=== PATIENT | male | born 1965 ===

== ENCOUNTER 2018-10-02 10:58 | Inpatient (IN) | payer MEDICARE ==
[2018-10-02 11:08] VITALS: BMI 24.3
--- NOTE | 2018-10-02 11:35 | ED PDOC ---
Lower Extremity Pain/Injury Time Seen by Provider: 10/02/18 11:24 Chief Complaint (Nursing): Lower Extremity Problem/Injury Chief Complaint (Provider): Lower Extremity Problem/Injury History Per: Patient History/Exam Limitations: no limitations Onset/Duration Of Symptoms: Days (x2 months) Current Symptoms Are (Timing): Still Present Pain Scale Rating Of: 10 Additional Complaint(s): 53 year old male presents to the ED sent by Dr. Mariscal for evaluation of left leg pain ongoing the past two months. Patient reports that he has had swelling a nd discomfort radiating from the left hip down, most severe at the hip since onset. He describes it as a throbbing 10/10 pain and notes having difficulty with ambulation secondary to the pain, so he has acquired crutches to use. 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 Denies prolonged immobility, trauma, hx of leg injury, shortness of breath, cough, chest pain, palpitations, fever, and other complaints. PMD: none provided Past Medical History Reviewed: Historical Data, Nursing Documentation, Vital Signs Vital Signs: Last Vital Signs Temp 98.9 F 10/02/18 11:09 Pulse 73 10/02/18 11:09 Resp 20 10/02/18 11:09 BP 129/85 10/02/18 11:09 Pulse Ox 98 10/02/18 11:09 - Medical History PMH: HIV - Surgical History Surgical History: No Surg Hx - Family History Family History: States: Unknown Family Hx - Social History Current smoker - smoking cessation education provided: Yes (1 pack per day) Alcohol: None Drugs: Other (former heroin abuser (injection) ) - Home Medications Home Medications: Ambulatory Orders Medication Instructions Recorded Methadone 110 mg PO DAILY 10/02/18 - Allergies Allergies/Adverse Reactions: Allergies Allergy/AdvReac Type Severity Reaction Status Date / Time No Known Allergies Allergy Verified 10/02/18 11:15 Review of Systems ROS Statement: Except As Marked, All Systems Reviewed And Found Negative Constitutional: Negative for: Fever Cardiovascular: Negative for: Chest Pain, Palpitations Respiratory: Negative for: Cough, Shortness of Breath Musculoskeletal: Positive for: Leg Pain (entire LLE, most notably at hip) Neurological: Negative for: Headache, Dizziness Physical Exam - Reviewed Nursing Documentation Reviewed: Yes Vital Signs Reviewed: Yes - Physical Exam Comments: GENERAL APPEARANCE: Patient is awake, alert, oriented x 3, in mild painful distress. Crutches noted at bedside. SKIN: Warm, dry; (-) cyanosis. NECK: Supple, FROM ENT: Airway patent, (-) stridor. LEFT LOWER EXTREMITY: (+) Diffuse tenderness entire LE, most notably at hip, (+) edema to left lower leg, calf, ankle; (+) Minimal calf tenderness. (-) palpable cord, (-) warmth, (-) erythema. No ROM at hip secondary to pain. Diminished ROM of knee secondary to pain. ABDOMEN AND GI: Soft; (-) tenderness CARDIOVASCULAR: (+) regular rate and rhythm, (+) distal pulse. RESPIRATORY: lungs clear to auscultation bilaterally. Respirations even and non- labored. NEUROLOGIC: (+) distal sensation. - Laboratory Results Result Diagrams: 10/02/18 13:20 10/02/18 13:20 - ECG O2 Sat by Pulse Oximetry: 98 (RA) Pulse Ox Interpretation: Normal Medical Decision Making Medical Decision Making: Time: 1133 Initial Impression: lower extremity pain, r/o DVT Initial Plan: --CMP --Lact acid --CBC with differential --Erythrocyte sedimentation rate --PT / PTT --Viral Load --Lymphocyte subset panel 4 --Toradol 30mg IVP --Blood culture --Left Hip XR --Left lower extremity US duplex 1400 Labs reviewed. CBC unremarkable. No leukocytosis. H&H stable. ESR elevated @ 113. CMP and coag profile WNL. 1425 Patient in U/S. 1505 Date of service: 10/02/2018 PROCEDURE: HISTORY: severe joint pain COMPARISON: None TECHNIQUE: AP pelvis and frog's leg view. FINDINGS: There is marked destruction with severe demineralization of the left femoral neck and mostly the left femoral head-a neoplastic lytic process with pathological fracture here is 1 consideration.-. Another consideration is a left hip joint aggressive infection with destruction and demineralization. There is amorphous demineralized ossific debris here. IMPRESSION: Extensive destruction of the proximal left femur with pathological fracture. A lytic destructive neoplasm versus a destructive left septic arthrosis are favored considerations. Comments: These findings were immediately called in to the ER and directly discussed with the HUGO Quinones on 10/02/2018 at 3:04 p.m. U/S reviewed, radiology report follows Left lower extremity ultrasound. Indication: Rule out DVT Technique: Duplex ultrasound evaluation of the left lower extremity Comparison: None available Findings: There is normal flow, compressibility, and augmentation of the left common femoral, femoral, and popliteal veins. The left posterior tibial veins appear patent and compress normally Impression: No evidence of deep venous thrombosis in the left lower extremity. Case discussed with ED MD Salas in light of XR findings, CT lower extremity ordered for further evaluation of pathology. 1814 Patient sleeping comfortably in no distress. Pending CT report. 1849 CT reviewed, radiology report: IMPRESSION: Large destructive and infiltrative soft tissue mass lesion involving the left femoral head, neck, and possibly acetabular roof, with pathological fracture of the neck, and mild lateral and upward subluxation of the shaft, the mass is seen containing dispersed bone fragments and ossified matrix, highly impressive of malignant pathology, with the possible differential diagnosis includes first metastatic deposit from unknown primary, followed by primary osseous tumor like chondrosarcoma and osteosarcoma, for further histopathological correlation and contrast enhanced MRI study. Sheets of irregular periosteal reaction is seen outlining the anterior and posterior acetabular columns. Consult placed to hospitalist, Dr Ro. Agreeable to admission to med/surg. Scribe Attestation: Documented by Estrellita Marquez, acting as a scribe for Yumiko Quinones PA-C Provider Scribe Attestation: All medical record entries made by the Scribe were at my direction and personally dictated by me. I have reviewed the chart and agree that the record accurately reflects my personal performance of the history, physical exam, medical decision making, and the department course for this patient. I have also personally directed, reviewed, and agree with the discharge instructions and disposition. Disposition - Clinical Impression Clinical Impression: Pathological fracture of hip - Patient ED Disposition Is Patient to be Admitted: Yes Discussed With : Christa Ro Doctor Will See Patient In The: Hospital Counseled Patient/Family Regarding: Studies Performed, Diagnosis - Disposition Disposition Time: 19:40 Condition: STABLE - POA Present On Arrival: None Results - Lab Results Lab Results: 10/02/18 10/02/18 10/02/18 13:30 13:20 13:20 WBC RBC Hgb Hct MCV MCH MCHC RDW Plt Count MPV Neut % (Auto) Lymph % (Auto) Wise % (Auto) Eos % (Auto) Baso % (Auto) Neut # (Auto) Lymph # (Auto) Wise # (Auto) Eos # (Auto) Baso # (Auto) ESR PT 15.3 H INR 1.3 APTT 36.9 Sodium 139 Potassium 4.1 Chloride 102 Carbon Dioxide 31 H Anion Gap 10 BUN 14 Creatinine 0.7 L Est GFR ( Amer) > 60 Est GFR (Non-Af Amer) > 60 Random Glucose 69 L Lactic Acid 0.9 Calcium 8.6 Total Bilirubin 0.4 AST 39 ALT 28 Alkaline Phosphatase 113 Total Protein 7.6 Albumin 3.1 L Globulin 4.5 H Albumin/Globulin Ratio 0.7 L 10/02/18 13:20 WBC 7.1 RBC 3.90 L Hgb 10.3 L Hct 31.9 L MCV 81.9 MCH 26.5 L MCHC 32.4 L RDW 17.3 H Plt Count 346 MPV 8.0 Neut % (Auto) 50.9 Lymph % (Auto) 41.0 H Wise % (Auto) 7.5 Eos % (Auto) 0.2 Baso % (Auto) 0.4 Neut # (Auto) 3.6 Lymph # (Auto) 2.9 Wise # (Auto) 0.5 Eos # (Auto) 0.0 Baso # (Auto) 0.0 ESR 113 H PT INR APTT Sodium Potassium Chloride Carbon Dioxide Anion Gap BUN Creatinine Est GFR ( Amer) Est GFR (Non-Af Amer) Random Glucose Lactic Acid Calcium Total Bilirubin AST ALT Alkaline Phosphatase Total Protein Albumin Globulin Albumin/Globulin Ratio
[2018-10-02 13:49] LABS: BASO % 0.4 % (0.0-2.0); EOS % 0.2 % (0.0-4.0); HEMOGLOBIN 10.3 g/dL (12.0-18.0); LYMPH # 2.9 K/uL (1.0-4.3); MEAN CELL VOLUME 81.9 fl (80.0-94.0); MEAN CORPUSCULAR HEMOGLOBIN 26.5 pg (27.0-31.0); MEAN CORPUSCULAR HGB CONC 32.4 g/dL (33.0-37.0); MONO # 0.5 K/uL (0.0-0.8); MONO % 7.5 % (0.0-10.0); NEUT # 3.6 K/uL (1.8-7.0); NEUT % 50.9 % (50.0-75.0); NRBC % 0.2 % (0.0-0.0); RBC 3.9 Mil/uL (4.40-5.90); RED CELL DISTRIBUTION WIDTH 17.3 % (11.5-14.5); WHITE BLOOD COUNT 7.1 K/uL (4.8-10.8)
[2018-10-02 13:57] LABS: ALB/GLOB RATIO 0.7 (1.0-2.1)
[2018-10-02 14:01] LABS: INR 1.3; PROTHROMBIN TIME 15.3 Seconds (9.8-13.1)
[2018-10-02 14:04] LABS: PARTIAL THROMBOPLASTIN TIME 36.9 Seconds (25.6-37.1)
[2018-10-02 14:07] LABS: ALBUMIN 3.1 g/dL (3.5-5.0); ALT/SGPT 28 U/L (21-72); AST/SGOT 39 U/L (17-59); BLOOD UREA NITROGEN 14 mg/dl (9-20); CALCIUM 8.6 mg/dL (8.4-10.2); GFR NON-AFRICAN AMERICAN > 60
--- NOTE | 2018-10-02 15:09 | RAD ---
Date of service: 10/02/2018 PROCEDURE: HISTORY: severe joint pain COMPARISON: None TECHNIQUE: AP pelvis and frog's leg view. FINDINGS: There is marked destruction with severe demineralization of the left femoral neck and mostly the left femoral head-a neoplastic lytic process with pathological fracture here is 1 consideration.-. Another consideration is a left hip joint aggressive infection with destruction and demineralization. There is amorphous demineralized ossific debris here. IMPRESSION: Extensive destruction of the proximal left femur with pathological fracture. A lytic destructive neoplasm versus a destructive left septic arthrosis are favored considerations. Comments: These findings were immediately called in to the ER and directly discussed with the HUGO Quinones on 10/02/2018 at 3:04 p.m.
--- NOTE | 2018-10-02 15:09 | US ---
Left lower extremity ultrasound. Indication: Rule out DVT Technique: Duplex ultrasound evaluation of the left lower extremity Comparison: None available Findings: There is normal flow, compressibility, and augmentation of the left common femoral, femoral, and popliteal veins. The left posterior tibial veins appear patent and compress normally Impression: No evidence of deep venous thrombosis in the left lower extremity.
--- NOTE | 2018-10-02 20:08 | CP.PCM.HP ---
History of Present Illness - History of Present Illness History of Present Illness: This is 53 y/o male admitted to [facility] for evaluation and treatment of left hip/thigh pain for 3 months. Patient has hx of drug abuse, denies any history of HIV. Patient reports this pain has been progressively getting worse, denies any recollection of any trauma, pain is constant 10/10, throbbing, non-radiating, no alleviating factors, aggravated by walking, movement and standing, associated with swelling. Denies any associated dysuria, vomiting, fever, abdominal pain, diarrhea, constipation, dizziness, chest pain, or SOB. Patient is a poor historian. PMH: Drug abuse (denies any hx of HIV) PSH: Denies Allg: Denies Meds: Methadone 110mg daily (From [facility], # [phone], will confirm the dose in the morning ) FH: Denies any cancers, heart or strokes SH: Smokes cig, 1pack/day, Denies alcohol use, Last use of heroin 1 month ago ROS: As per HPI ER Course: VS: Stable, Afebrile CBC: H/H; 10.3/31.9 ESR: 113 CMP: wnl UA: reviewed U tox: + methadone, + Cannabinoids U/s LLE: No evidence of deep venous thrombosis in the left lower extremity Hip and Pelvic Xray: Proximal Left femur with pathological fracture, lytic destructive CT LLE: Large destructive and infiltrative soft tissue mass lesion involving the left femoral head, neck, and possibly acetabular roof, with pathological fracture Present on Admission - Present on Admission Any Indicators Present on Admission: No Past Patient History - Infectious Disease Hx of Infectious Diseases: None - Past Social History Alcohol: None Drugs: Other (former heroin abuser (injection) ) - CARDIAC Hx Hypertension: No - ENDOCRINE/METABOLIC Hx Diabetes Mellitus Type 2: No - HEMATOLOGICAL/ONCOLOGICAL Hx Human Immunodeficiency Virus (HIV): Yes - PSYCHIATRIC Hx Substance Use: Yes - SURGICAL HISTORY Hx Surgeries: No - ANESTHESIA Hx Anesthesia: No Meds Allergies/Adverse Reactions: Allergies Allergy/AdvReac Type Severity Reaction Status Date / Time No Known Allergies Allergy Verified 10/02/18 11:15 Physical Exam - Constitutional Appears: No Acute Distress - Head Exam Head Exam: NORMAL INSPECTION - Eye Exam Eye Exam: Normal appearance Pupil Exam: NORMAL ACCOMODATION - ENT Exam ENT Exam: Mucous Membranes Moist - Neck Exam Neck exam: Positive for: Normal Inspection - Respiratory Exam Respiratory Exam: Clear to Auscultation Bilateral, NORMAL BREATHING PATTERN - Cardiovascular Exam Cardiovascular Exam: REGULAR RHYTHM, +S1, +S2 - GI/Abdominal Exam GI & Abdominal Exam: Normal Bowel Sounds, Soft Additional comments: abdominal hernia appreciated above the Umbilicus, non-tender, Chronic - Extremities Exam Additional comments: LLE: Diffuse tenderness with edema, most tenderness at hip area, mild swelling, no erythema. No ROM at hip secondary to pain. Diminished ROM of knee secondary to pain. - Back Exam Back exam: NORMAL INSPECTION. absent: CVA tenderness (L), CVA tenderness (R) - Neurological Exam Neurological exam: Alert, CN II-XII Intact, Oriented x3 - Psychiatric Exam Psychiatric exam: Normal Affect - Skin Skin Exam: Normal Color Results - Vital Signs Recent Vital Signs: Last Vital Signs Temp 97.7 F 10/02/18 15:19 Pulse 67 10/02/18 18:54 Resp 18 10/02/18 18:54 BP 110/50 L 10/02/18 18:54 Pulse Ox 98 10/02/18 19:42 - Labs Result Diagrams: 10/02/18 13:20 10/02/18 13:20 Labs: Laboratory Results - last 24 hr 10/02/18 10/02/18 10/02/18 13:20 13:20 13:20 WBC 7.1 RBC 3.90 L Hgb 10.3 L Hct 31.9 L MCV 81.9 MCH 26.5 L MCHC 32.4 L RDW 17.3 H Plt Count 346 MPV 8.0 Neut % (Auto) 50.9 Lymph % (Auto) 41.0 H [place] % (Auto) 7.5 Eos % (Auto) 0.2 Baso % (Auto) 0.4 Neut # (Auto) 3.6 Lymph # (Auto) 2.9 [place] # (Auto) 0.5 Eos # (Auto) 0.0 Baso # (Auto) 0.0 ESR 113 H PT 15.3 H INR 1.3 APTT 36.9 Sodium 139 Potassium 4.1 Chloride 102 Carbon Dioxide 31 H Anion Gap 10 BUN 14 Creatinine 0.7 L Est GFR ( Amer) > 60 Est GFR (Non-Af Amer) > 60 Random Glucose 69 L Lactic Acid Calcium 8.6 Total Bilirubin 0.4 AST 39 ALT 28 Alkaline Phosphatase 113 Total Protein 7.6 Albumin 3.1 L Globulin 4.5 H Albumin/Globulin Ratio 0.7 L 10/02/18 13:30 WBC RBC Hgb Hct MCV MCH MCHC RDW Plt Count MPV Neut % (Auto) Lymph % (Auto) [place] % (Auto) Eos % (Auto) Baso % (Auto) Neut # (Auto) Lymph # (Auto) [place] # (Auto) Eos # (Auto) Baso # (Auto) ESR PT INR APTT Sodium Potassium Chloride Carbon Dioxide Anion Gap BUN Creatinine Est GFR ( Amer) Est GFR (Non-Af Amer) Random Glucose Lactic Acid 0.9 Calcium Total Bilirubin AST ALT Alkaline Phosphatase Total Protein Albumin Globulin Albumin/Globulin Ratio Assessment & Plan - Assessment and Plan (Free Text) Assessment: A/P: 53 y/o male admitted to [facility] for evaluation and treatment of left hip/thigh pain for 3 months. Left hip/thigh pain - Chronic - U/s LLE: No evidence of deep venous thrombosis in the left lower extremity - Hip and Pelvic Xray: Proximal Left femur with pathological fracture, lytic destructive - CT LLE: Large destructive and infiltrative soft tissue mass lesion involving t he left femoral head, neck, and possibly acetabular roof, with pathological fracture - Elevated ESR - Consult ID, Dr. Conti, f/u recommendations - C/w pain management - Follow up Blood/Urine Cx, CPK/CRP/Procal IV drug user/Substance use disorder - U tox: + methadone, + Cannabinoids - On Methadone 110mg daily (From [facility], # [phone], will confirm the dose in the morning ) - Follow up CD4/Viral load to r/o immunocompromised state DVT PPX - SCD for now
[2018-10-02] MEDS ORDERED: Sodium Chloride 0.9% 1,000 ML IV SCH (20:15)
[2018-10-02 21:08] LABS: PHENCYCLIDINE, UR NEGATIVE (NEGATIVE)
[2018-10-02 21:10] LABS: SQUAMOUS EPITHIAL < 1 /hpf (0-5); URINE BACTERIA RARE (<OCC); URINE BILIRUBIN NEGATIVE (NEGATIVE); URINE BLOOD SMALL (NEGATIVE); URINE CLARITY CLOUDY (Clear); URINE COLOR YELLOW (YELLOW); URINE GLUCOSE (UA) NEG (Normal); URINE LEUKOCYTE ESTERASE TRACE Leu/uL (Negative); URINE PROTEIN NEGATIVE (NEGATIVE)
[2018-10-02 21:11] LABS: BARBITURATES, UR NEGATIVE (NEGATIVE); BENZODIAZEPINES, UR NEGATIVE (NEGATIVE); OPIATES, UR NEGATIVE (NEGATIVE)
[2018-10-02] MEDS: Naproxen 500 MG TAB PO SCH (22:21)
[2018-10-02] MEDS ORDERED: Naproxen 500 MG TAB PO ONE (22:22)
[2018-10-03 05:49] LABS: BASO % 0.4 % (0.0-2.0); EOS % 0.6 % (0.0-4.0); HEMOGLOBIN 9.5 g/dL (12.0-18.0); LYMPH % 32.5 % (20.0-40.0); MEAN CELL VOLUME 80.9 fl (80.0-94.0); MEAN CORPUSCULAR HEMOGLOBIN 26.1 pg (27.0-31.0); MEAN CORPUSCULAR HGB CONC 32.3 g/dL (33.0-37.0); MEAN PLATELET VOLUME 8.2 fl (7.2-11.7); MONO # 0.5 K/uL (0.0-0.8); MONO % 8.1 % (0.0-10.0); NEUT # 3.6 K/uL (1.8-7.0); NEUT % 58.4 % (50.0-75.0); RBC 3.63 Mil/uL (4.40-5.90); WHITE BLOOD COUNT 6.1 K/uL (4.8-10.8)
[2018-10-03 05:59] LABS: BLOOD UREA NITROGEN 13 mg/dl (9-20); CALCIUM 8.1 mg/dL (8.4-10.2); GFR NON-AFRICAN AMERICAN > 60
[2018-10-03] MEDS: Naproxen 500 MG TAB PO SCH (09:47)
--- NOTE | 2018-10-03 10:46 | CP.PCM.PN ---
<Ling Blum - Last Filed: 10/03/18 11:33> Subjective - Date & Time of Evaluation Date of Evaluation: 10/03/18 Time of Evaluation: 10:46 - Subjective Subjective: 53 yo male patient, with PMHx of IV drug use, seen and examined for L hip/thigh pain for over 2 months. No acute events overnight. Patient reports pain to his L hip and inner thigh. Denies N/V/F/SOB/CP/chills. Objective - Vital Signs/Intake and Output Vital Signs (last 24 hours): Temp Pulse Resp BP Pulse Ox 97.5 F L 51 L 20 116/74 98 10/03/18 08:00 10/03/18 08:00 10/03/18 08:00 10/03/18 08:00 10/03/18 08:00 - Medications Medications: Current Medications Acetaminophen (Tylenol 325mg Tab) 650 mg PO Q6 PRN PRN Reason: Pain, Mild (1-3) Sodium Chloride (Sodium Chloride 0.9%) 1,000 mls @ 100 mls/hr IV .Q10H [facility] Last Admin: 10/02/18 20:23 Dose: 100 mls/hr Ketorolac Tromethamine (Toradol) 30 mg IVP Q6 PRN PRN Reason: Pain, severe (8-10) Ketorolac Tromethamine (Toradol) 15 mg IVP Q6 PRN PRN Reason: Pain, moderate (4-7) Naproxen (Naproxen) 500 mg PO Q12 [facility] Last Admin: 10/03/18 09:47 Dose: 500 mg - Labs Labs: 10/03/18 05:10 10/03/18 05:10 PT 15.3 Seconds (9.8-13.1) H 10/02/18 13:20 INR 1.3 10/02/18 13:20 APTT 36.9 Seconds (25.6-37.1) 10/02/18 13:20 - Constitutional Appears: No Acute Distress - Head Exam Head Exam: NORMAL INSPECTION - Eye Exam Eye Exam: EOMI, PERRL Pupil Exam: NORMAL ACCOMODATION - ENT Exam ENT Exam: Mucous Membranes Moist - Neck Exam Neck Exam: Normal Inspection - Respiratory Exam Respiratory Exam: Clear to Ausculation Bilateral - GI/Abdominal Exam GI & Abdominal Exam: Soft, Normal Bowel Sounds - Extremities Exam Additional comments: Tenderness upon palpation with mild edema to L hip, no ROM to L hip secondary to guarding. - Neurological Exam Neurological Exam: Alert, Awake - Psychiatric Exam Psychiatric exam: Normal Affect, Normal Mood - Skin Skin Exam: Warm Assessment and Plan - Assessment and Plan (Free Text) Assessment: 53 yo male patient, with PMHx of IV drug use, seen and evaluated for L hip/thigh pain Plan: 1) Left hip/thigh pain - U/s LLE: No evidence of DVT in the LLE - Hip/Pelvis Xray: Proximal L femur with pathological fracture, lytic de structive - CT LLE: Large destructive and infiltrative soft tissue mass lesion involving the left femoral head, neck, and possibly acetabular roof, with pathological fracture - ESR 113, CRP- pending - Urine cx, pending - Blood cx, pending - Consult ID, Dr. Mariscal, reccs appreciated - Consult Ortho, Dr. Rodney, reccs appreciated - C/w pain management 2) IV drug user/Substance use disorder - Urine toxicology: + methadone, + Cannabinoids - Methadone 110mg daily, [employer] contacted ([phone]) on 10/03/18, dose confirmed - HIV-1 Ab Reactive screen- Negative 3) DVT PPX - SCD <Tracey Tim - Last Filed: 10/12/18 10:20> Objective - Vital Signs/Intake and Output Vital Signs (last 24 hours): Temp Pulse Resp BP Pulse Ox 97.8 F 55 L 18 110/68 99 10/11/18 08:17 10/11/18 08:17 10/11/18 08:17 10/11/18 08:17 10/11/18 08:17 - Labs Labs: 10/10/18 05:50 10/10/18 10:59 PT 13.8 Seconds (9.8-13.1) H 10/09/18 09:10 INR 1.2 10/09/18 09:10 APTT 38.3 Seconds (25.6-37.1) H 10/09/18 09:10 Attending/Attestation - Attestation I have personally seen and examined this patient.: Yes I have fully participated in the care of the patient.: Yes I have reviewed all pertinent clinical information, including history, physical exam and plan: Yes Notes (Text): 10/12/18 10:20 Seen, examined, and discussed with resident. Agree with findings and plan as above.
--- NOTE | 2018-10-03 11:27 | CT ---
Date of service: 10/02/2018 PROCEDURE: CT left lower extremity HISTORY: pathology of femoral head/neck on XR COMPARISON: October 02, 2018. TECHNIQUE: 2.5 mm axial acquisition and display. Coronal and sagittal reconstructions. Dose report (mGy-cm): 256.04 Supplemental 3D volume rendering images in multiple planes FINDINGS: Destructive process affecting the proximal left femur including femoral neck and head. Associated soft tissue swelling identified including adductor and quadriceps musculature. In the absence of a known history malignancy (and therefore pathologic fracture) Virtual absence of the normal left femoral head. The adjacent acetabulum is preserved. Most likely etiology would be infectious process. No additional osseous abnormalities identified. IMPRESSION: Destruction of left femoral head with associated soft tissue component affecting knowledge the joint space and surrounding/adjacent musculature. In the absence of a history of malignancy, infectious/inflammatory etiology should be considered. Primary neoplastic process of the proximal left femur should also be considered. Concordant results (preliminary interpretation) provided by [employer]. Procedure Completed: 15:31. Preliminary Report: Dictated and Authenticated: 18:26. Final Interpretation: 11:23. October 03, 2018
--- NOTE | 2018-10-03 11:57 | CP.PCM.CON ---
History of Present Illness - History of Present Illness History of Present Illness: Orthopedic consultation Dr. Rodney 53M complains of severe left hip pain x 2 or 3 months. He says he may have fell, he is not sure. He says a little over a month ago he went to [facility] and said they took xrays and sent him home. He says he was seen about a month ago at [facility] for hip pain and then they took xrays and sent him home saying nothing was broken and he never followed up with any orthopedic doctor. He has been usi ng crutches since that time. [place] admits to IVDA, on methadone. No fever/chills. Denies CP/SOB/dizziness/n/v. ?hx of HIV per chart, patient denies Review of Systems - Review of Systems All systems: reviewed and no additional remarkable complaints except - Musculoskeletal Musculoskeletal: As Per HPI Past Patient History - Infectious Disease Hx of Infectious Diseases: None - Past Medical History & Family History Past Medical History?: Yes Past Family History: Reviewed and not pertinent - Past Social History Alcohol: None Drugs: Other (former heroin abuser (injection) ) - CARDIAC Hx Hypertension: No - PULMONARY Hx Respiratory Disorders: No - NEUROLOGICAL Hx Neurological Disorder: No - HEENT Hx HEENT Problems: No - RENAL Hx Chronic Kidney Disease: No - ENDOCRINE/METABOLIC Hx Diabetes Mellitus Type 2: No - HEMATOLOGICAL/ONCOLOGICAL Hx Human Immunodeficiency Virus (HIV): Yes - INTEGUMENTARY Hx Dermatological Problems: No - MUSCULOSKELETAL/RHEUMATOLOGICAL Hx Musculoskeletal Disorders: No Hx Falls: No - GASTROINTESTINAL Hx Gastrointestinal Disorders: No - GENITOURINARY/GYNECOLOGICAL Hx Genitourinary Disorders: No - PSYCHIATRIC Hx Substance Use: Yes - SURGICAL HISTORY Hx Surgeries: No - ANESTHESIA Hx Anesthesia: No Meds Allergies/Adverse Reactions: Allergies Allergy/AdvReac Type Severity Reaction Status Date / Time No Known Allergies Allergy Verified 10/02/18 11:15 - Medications Medications: Current Medications Acetaminophen (Tylenol 325mg Tab) 650 mg PO Q6 PRN PRN Reason: Pain, Mild (1-3) Ketorolac Tromethamine (Toradol) 30 mg IVP Q6 PRN PRN Reason: Pain, severe (8-10) Ketorolac Tromethamine (Toradol) 15 mg IVP Q6 PRN PRN Reason: Pain, moderate (4-7) Last Admin: 10/03/18 11:50 Dose: 15 mg Methadone HCl (Methadone) 110 mg PO DAILY SHERMAN Physical Exam - Constitutional Appears: Unkempt, Cachectic, Chronically Ill Additional comments: very poor hygiene, malodorous - Head Exam Head Exam: ATRAUMATIC - Neck Exam Neck exam: Positive for: Full Rom, Normal Inspection - Extremities Exam Additional comments: skin scaling of feel and ankles - Expanded Lower Extremities Exam Left Hip exam: internal rotation (left hip stiff, pain with any ROM active or passive), shortening Knee exam: normal inspection Ankle exam: FULL ROM (but 4/5 DF/PF) - Neurological Exam Neurological exam: Alert, Oriented x3 - Psychiatric Exam Psychiatric exam: Normal Affect, Normal Mood - Skin Skin Exam: Dry, Intact, Normal Color, Warm Results - Vital Signs Recent Vital Signs: Last Vital Signs Temp 97.5 F L 10/03/18 08:00 Pulse 51 L 10/03/18 08:00 Resp 20 10/03/18 08:00 BP 116/74 10/03/18 08:00 Pulse Ox 98 10/03/18 08:00 - Labs Result Diagrams: 10/03/18 05:10 10/03/18 05:10 Labs: Laboratory Results - last 24 hr 10/02/18 10/02/18 10/02/18 13:20 13:20 13:20 WBC 7.1 RBC 3.90 L Hgb 10.3 L Hct 31.9 L MCV 81.9 MCH 26.5 L MCHC 32.4 L RDW 17.3 H Plt Count 346 MPV 8.0 Neut % (Auto) 50.9 Lymph % (Auto) 41.0 H [place] % (Auto) 7.5 Eos % (Auto) 0.2 Baso % (Auto) 0.4 Neut # (Auto) 3.6 Lymph # (Auto) 2.9 Wharton # (Auto) 0.5 Eos # (Auto) 0.0 Baso # (Auto) 0.0 ESR 113 H PT 15.3 H INR 1.3 APTT 36.9 Sodium 139 Potassium 4.1 Chloride 102 Carbon Dioxide 31 H Anion Gap 10 BUN 14 Creatinine 0.7 L Est GFR ( Amer) > 60 Est GFR (Non-Af Amer) > 60 Random Glucose 69 L Lactic Acid Calcium 8.6 Total Bilirubin 0.4 AST 39 ALT 28 Alkaline Phosphatase 113 Total Creatine Kinase Total Protein 7.6 Albumin 3.1 L Globulin 4.5 H Albumin/Globulin Ratio 0.7 L Urine Color Urine Clarity Urine pH Ur Specific [place] Urine Protein Urine Glucose (UA) Urine Ketones Urine Blood Urine Nitrate Urine Bilirubin Urine Urobilinogen Ur Leukocyte Esterase Urine RBC (Auto) Urine Microscopic WBC Ur Squamous Epith Cells Urine Bacteria Urine Opiates Screen Urine Methadone Screen Ur Barbiturates Screen Ur Phencyclidine Scrn Ur Amphetamines Screen U Benzodiazepines Scrn U Oth Cocaine Metabols U Cannabinoids Screen HIV-1 Ab Rapid Screen 10/02/18 10/02/18 10/02/18 13:30 20:46 20:46 WBC RBC Hgb Hct MCV MCH MCHC RDW Plt Count MPV Neut % (Auto) Lymph % (Auto) Wharton % (Auto) Eos % (Auto) Baso % (Auto) Neut # (Auto) Lymph # (Auto) [place]arton # (Auto) Eos # (Auto) Baso # (Auto) ESR PT INR APTT Sodium Potassium Chloride Carbon Dioxide Anion Gap BUN Creatinine Est GFR ( Amer) Est GFR (Non-Af Amer) Random Glucose Lactic Acid 0.9 Calcium Total Bilirubin AST ALT Alkaline Phosphatase Total Creatine Kinase Total Protein Albumin Globulin Albumin/Globulin Ratio Urine Color Yellow Urine Clarity Cloudy Urine pH 6.0 Ur Specific [place] 1.017 Urine Protein Negative Urine Glucose (UA) Neg Urine Ketones Negative Urine Blood Small Urine Nitrate Negative Urine Bilirubin Negative Urine Urobilinogen 4.0 Ur Leukocyte Esterase Trace Urine RBC (Auto) 30 H Urine Microscopic WBC 3 Ur Squamous Epith Cells < 1 Urine Bacteria Rare Urine Opiates Screen Negative Urine Methadone Screen Positive H Ur Barbiturates Screen Negative Ur Phencyclidine Scrn Negative Ur Amphetamines Screen Negative U Benzodiazepines Scrn Negative U Oth Cocaine Metabols Negative U Cannabinoids Screen Positive H HIV-1 Ab Rapid Screen 10/03/18 10/03/18 10/03/18 05:10 05:10 07:09 WBC 6.1 RBC 3.63 L Hgb 9.5 L Hct 29.4 L MCV 80.9 MCH 26.1 L MCHC 32.3 L RDW 17.0 H Plt Count 311 MPV 8.2 Neut % (Auto) 58.4 Lymph % (Auto) 32.5 [place]arton % (Auto) 8.1 Eos % (Auto) 0.6 Baso % (Auto) 0.4 Neut # (Auto) 3.6 Lymph # (Auto) 2.0 [place]arton # (Auto) 0.5 Eos # (Auto) 0.0 Baso # (Auto) 0.0 ESR PT INR APTT Sodium 139 Potassium 3.6 Chloride 105 Carbon Dioxide 30 Anion Gap 8 L BUN 13 Creatinine 0.6 L Est GFR ( Amer) > 60 Est GFR (Non-Af Amer) > 60 Random Glucose 80 Lactic Acid Calcium 8.1 L Total Bilirubin AST ALT Alkaline Phosphatase Total Creatine Kinase 207 H Total Protein Albumin Globulin Albumin/Globulin Ratio Urine Color Urine Clarity Urine pH Ur Specific [place] Urine Protein Urine Glucose (UA) Urine Ketones Urine Blood Urine Nitrate Urine Bilirubin Urine Urobilinogen Ur Leukocyte Esterase Urine RBC (Auto) Urine Microscopic WBC Ur Squamous Epith Cells Urine Bacteria Urine Opiates Screen Urine Methadone Screen Ur Barbiturates Screen Ur Phencyclidine Scrn Ur Amphetamines Screen U Benzodiazepines Scrn U Oth Cocaine Metabols U Cannabinoids Screen HIV-1 Ab Rapid Screen Non reactive - Impressions Impression: Patient Name / ID : LAUREN WADE / [id number] Exam Date : 10/02/2018 15:29:36 ( Approved ) Study Comment : Sex / Age : M / 53Y Creator : Iván Rivera MD Dictator : Iván Rivera MD Surveyor Helper Rod : Residential Program Manager : Iván Rivera MD Approver2 : Report Date : 10/03/2018 11:23:52 My Comment : Date of service: 10/02/2018 PROCEDURE: CT left lower extremity HISTORY: pathology of femoral head/neck on XR COMPARISON: October 02, 2018. TECHNIQUE: 2.5 mm axial acquisition and display. Coronal and sagittal reconstructions. Dose report (mGy-cm): 256.04 Supplemental 3D volume rendering images in multiple planes FINDINGS: Destructive process affecting the proximal left femur including femoral neck and head. Associated soft tissue swelling identified including adductor and quadriceps musculature. In the absence of a known history malignancy (and therefore pathologic fracture) Virtual absence of the normal left femoral head. The adjacent acetabulum is preserved. Most likely etiology would be infectious process. No additional osseous abnormalities identified. IMPRESSION: Destruction of left femoral head with associated soft tissue component affecting knowledge the joint space and surrounding/adjacent musculature. In the absence of a history of malignancy, infectious/inflammatory etiology should be considered. Primary neoplastic process of the proximal left femur should also be considered. Concordant results (preliminary interpretation) provided by [employer]. Procedure Completed: 15:31. Preliminary Report: Dictated and Authenticated: 18:26. Final Interpretation: 11:23. October 03, 2018 atient Name / ID : LAUREN WADE / [id number] Exam Date : 08/18/2018 11:31:45 ( Approved ) Study Comment : Sex / Age : M / 53Y Creator : Lianet Frey MD Dictator : Lianet Frey MD Surveyor Helper Rod : Residential Program Manager : Lianet Frey MD Approver2 : Report Date : 08/18/2018 12:39:59 My Comment : PROCEDURE: Left Hip X-ray Radiographs. HISTORY: r/o fx COMPARISON: None. FINDINGS: BONES: The pelvic ring is intact. There is deformity in the left femoral head.. Bone alignment and mineralization are normal. JOINTS: Normal. SOFT TISSUES: Normal. OTHER FINDINGS: None. IMPRESSION: Deformity in the left femoral head could be related to old fracture. No acute displaced fracture or dislocation. Please note occult fractures cannot be excluded on plain radiographs. If there is a persistent clinical concern, an MRI of the hip may be performed for further evaluation. atient Name / ID : LAUREN WADE / [id number] Exam Date : 10/02/2018 12:45:05 ( Approved ) Study Comment : Sex / Age : M / 53Y Creator : Dictator : Kaitlin Feliciano V. Surveyor Helper Rod : Residential Program Manager : Kaitlin Feliciano V. Approver2 : Report Date : My Comment : Date of service: 10/02/2018 PROCEDURE: HISTORY: severe joint pain COMPARISON: None TECHNIQUE: AP pelvis and frog's leg view. FINDINGS: There is marked destruction with severe demineralization of the left femoral neck and mostly the left femoral head-a neoplastic lytic process with pathological fracture here is 1 consideration.-. Another consideration is a left hip joint aggressive infection with destruction and demineralization. There is amorphous demineralized ossific debris here. IMPRESSION: Extensive destruction of the proximal left femur with pathological fracture. A lytic destructive neoplasm versus a destructive left septic arthrosis are favored considerations. Comments: These findings were immediately called in to the ER and directly discussed with the HUGO Quinones on 10/02/2018 at 3:04 p.m. Assessment & Plan (1) Pathological fracture of hip Assessment and Plan: Xrays from 08/18/2018 at [facility] demonstrate what is possible a chronic femoral neck fracture at that time. Images are of poor quality, so can not say that it is chronic or acute with certainty, and underlying AVN of femoral head as initial presentation or as sequela of possible fracture also consideration can not exclude infection or tumor either at this time ESR 113, CRP ordered case d/w Dr. Rodney bone scan MRI with contrast cxr/ekg vit D labs pending PT elevated, will recheck patient anemic, will defer to medical team for work up will follow up imaging, if patient surgical candidate will schedule for Sunday 10/07 Status: Acute
--- NOTE | 2018-10-03 12:55 | CARD ---
APPROVED REPORT Date of service: 10/03/2018 EKG Measurement Heart [id number] <Conclusion> Sinus bradycardia Otherwise normal ECG
--- NOTE | 2018-10-03 14:04 | RAD ---
Date of service: 10/03/2018 PROCEDURE: CHEST RADIOGRAPH, 1 VIEW HISTORY: pre op COMPARISON: None available. FINDINGS: LUNGS: Clear. PLEURA: No pneumothorax or pleural fluid seen. CARDIOVASCULAR: Normal. OSSEOUS STRUCTURES: No significant abnormalities. VISUALIZED UPPER ABDOMEN: Normal. OTHER FINDINGS: None. IMPRESSION: No active disease.
[2018-10-03] MEDS ORDERED: Gadodiamide 287 MG/ML VIAL (15ML) IV ONE (18:12)
[2018-10-03 19:04] LABS: % CD4 (T HELPER CELL) 35 Percent (30-61); % CD8 (SUPPRESSOR T CELL) 57 Percent (12-42); ABSOLUTE CD4 CELLS 1086 Cells/mcL (490-1740); ABSOLUTE CD8 CELLS 1774 Cells/mcL (180-1170); ABSOLUTE LYMPHOCYTES 3139 Cells/mcL (850-3900); HELPER/SUPPRESSOR RATIO 0.61 Ratio (0.86-5.00)
--- NOTE | 2018-10-03 20:19 | CP.PCM.PN ---
Subjective - Date & Time of Evaluation Date of Evaluation: 10/03/18 Time of Evaluation: 20:15 - Subjective Subjective: I D CONSULT FULL CONSULT DICTATED PATIENT EXAMINED ,EMR REVIEWED CULTURES PENDING HAVE STATRED VANCOMYCIN & MAXIPEME Objective - Vital Signs/Intake and Output Vital Signs (last 24 hours): Temp Pulse Resp BP Pulse Ox 97.7 F 50 L 18 132/74 99 10/03/18 19:20 10/03/18 19:20 10/03/18 19:20 10/03/18 19:20 10/03/18 19:20 Intake and Output: 10/03/18 10/04/18 18:59 06:59 Intake Total 1400 Balance 1400 - Medications Medications: Current Medications Acetaminophen (Tylenol 325mg Tab) 650 mg PO Q6 PRN PRN Reason: Pain, Mild (1-3) Vancomycin HCl 1 gm/ Sodium (Chloride) 250 mls @ 166.667 mls/hr IVPB Q12 SHERMAN; Protocol Cefepime HCl 1 gm/ Sodium (Chloride) 100 mls @ 100 mls/hr IVPB Q12 SHERMAN; Protocol Ketorolac Tromethamine (Toradol) 30 mg IVP Q6 PRN PRN Reason: Pain, severe (8-10) Ketorolac Tromethamine (Toradol) 15 mg IVP Q6 PRN PRN Reason: Pain, moderate (4-7) Last Admin: 10/03/18 17:41 Dose: 15 mg Methadone HCl (Methadone) 110 mg PO DAILY SHERMAN - Labs Labs: 10/03/18 05:10 10/03/18 05:10 PT 15.3 Seconds (9.8-13.1) H 10/02/18 13:20 INR 1.3 10/02/18 13:20 APTT 36.9 Seconds (25.6-37.1) 10/02/18 13:20
[2018-10-03] MEDS: Cefepime 1 GM in Sodium Chloride 0.9% 100 ML IVPB SCH (23:00)
--- NOTE | 2018-10-04 02:45 | CON ---
DATE: 10/03/2018 HISTORY OF PRESENT ILLNESS: The patient is a 53-year-old male IV drug abuser who was in the process of being placed on methadone maintenance over the past few weeks and is presently on 110 mg of methadone once a day. [facility] seeing the patients when one of the counselors came to me and asked me if I would just check this gentleman .. He came in on crutches and barely able to move. I asked him to stand up without crutches, which he obviously could not do and noted that his left extremity was swollen from the hip distally to ankle and was tender in multiple areas to the touch. He said that this had begun at least 3 weeks ago and had been to [facility] ED. .On both occasions he was told that he was able to go home(he lives in [facility]) Unsure if any referrals werea dvised At this time I called the emergency room and spoke to ER Physicianand advised I would sending him to the hospital for evaluation. He is a 53-year-old male and it was also noted that he is not HIV positive and has normal CD4 count. His history is that the pain was progressively getting worse. On multiple times of questioning, he said he does not remember any trauma. He states the pain is constant and is 10/10. Nothing makes it better. Again, he is unable to walk. He has no other problems related in terms of his feet. He denies any history of fever or chills along with this. Of note, he gave me multiple histories regarding his leg. difficulty walking for a less than a month, so it seems more likely that the story that he gave today in regards to few months is the right one(>6 weeks) but on finding the x-ray of his left hip and the CT scan, there is significant destruction of the left femoral head with associate soft tissue component affecting the joint space and surrounding adjacent musculature. In the absence of history of malignancy, infectious, inflammatory, etiology should be considered. Primary neoplastic process of the proximal left femur also should be considered. The patient was sent MRI of the hip tonight. His chest x-ray is within normal limits. LABORATORY DATA: HIV rapid screen is nonreactive. His creatinine is 0.6. GFR is greater than 60. Creatinine kinase is 207. C-reactive protein is 45.1. His procalcitonin level was less than 0.05. Alkaline phosphatase is surprisingly 113. AST is 39. ALT is 28. WBC count is 7.1, hemoglobin is 10.3, polys 50, lymphs 41 and he has a sed rate of 113. As stated before his CD4 cell count is 1086 and his CD4 percentage is 35%. Urine has some 30 wbc's in it, cultures are all pending. The patient is alert, cooperative and oriented pretty much to time and place. PHYSICAL EXAMINATION: GENERAL: The patient is in pain. HEENT: Within normal limits. He is basically essentially unkempt. Head normocephalic and atraumatic. Also, the patient has wasting noted of the face, maxillary and scientology areas. He says he has not been eating quite well. He is quite cachectic. LUNGS: Clear and it goes along with a normal chest x-ray. HEART: Regular sinus rhythm. ABDOMEN: Soft. Positive bowel sounds. MUSCULOSKELETAL: He has diffuse tenderness and edema of the left hip. Mild swelling. There is some erythema on the calf. He does have pain. He has no ability to stand up without crutches because of the pain. ASSESSMENT AND PLAN: At this point in time, we will be starting IV antibiotics just on the possibility that this is an infectious or inflammatory process. Agree with the previous reviews including the CT scan results that this may be a primary neoplastic process, but we will have to let the process of testing to make diagnosis The orthopedist is to see the patient. The orthopedist will be Dr. Rodney and we wilshould reconsider an oncology consult. Have started vancomycin 1 gm [id number] &maxipeme 1 gm ivpb q12h Vikas Mariscal MD COTY
[2018-10-04 05:27] LABS: HEMOGLOBIN 10.5 g/dL (12.0-18.0); MEAN CELL VOLUME 80.4 fl (80.0-94.0); MEAN CORPUSCULAR HEMOGLOBIN 25.9 pg (27.0-31.0); MEAN CORPUSCULAR HGB CONC 32.1 g/dL (33.0-37.0); RBC 4.07 Mil/uL (4.40-5.90); RED CELL DISTRIBUTION WIDTH 17.2 % (11.5-14.5); WHITE BLOOD COUNT 5.9 K/uL (4.8-10.8)
[2018-10-04 05:30] LABS: INR 1.2; PROTHROMBIN TIME 13.9 Seconds (9.8-13.1)
[2018-10-04 05:33] LABS: PARTIAL THROMBOPLASTIN TIME 36.7 Seconds (25.6-37.1)
[2018-10-04 05:40] LABS: ALB/GLOB RATIO 0.7 (1.0-2.1); ALBUMIN 2.8 g/dL (3.5-5.0); ALT/SGPT 22 U/L (21-72); AST/SGOT 27 U/L (17-59); BLOOD UREA NITROGEN 11 mg/dl (9-20); CALCIUM 8.3 mg/dL (8.4-10.2); GFR NON-AFRICAN AMERICAN > 60
[2018-10-04] MEDS: Cefepime 1 GM in Sodium Chloride 0.9% 100 ML IVPB SCH ×2 (08:57→21:30)
[2018-10-04] MEDS ORDERED: Gadodiamide 287 MG/ML VIAL (15ML) IV ONE (09:21)
--- NOTE | 2018-10-04 09:48 | CP.PCM.PN ---
<KulwantLing - Last Filed: 10/04/18 10:15> Subjective - Date & Time of Evaluation Date of Evaluation: 10/04/18 Time of Evaluation: 09:41 - Subjective Subjective: 53 yo male patient, with PMHx of IV drug use, seen and examined for L hip pain. No acute events overnight, afebrile. Patient reports significant pain to L hip with no relief this morning. Denies N/V/F/SOB/CP/chills. Objective - Vital Signs/Intake and Output Vital Signs (last 24 hours): Temp Pulse Resp BP Pulse Ox 98.3 F 69 18 127/71 96 10/04/18 08:10 10/04/18 08:10 10/04/18 08:10 10/04/18 08:10 10/04/18 08:10 Intake and Output: 10/04/18 10/04/18 06:59 18:59 Intake Total 1400 Balance 1400 - Medications Medications: Current Medications Acetaminophen (Tylenol 325mg Tab) 650 mg PO Q6 PRN PRN Reason: Pain, Mild (1-3) Calcium/Vitamin D (Oyster Shell Calcium/Vitamin D 500 Mg-200 Iu) 1 tab PO DAILY SHERMAN Cholecalciferol (Vitamin D) 2,000 intlu PO DAILY SHERMAN Vancomycin HCl 1 gm/ Sodium (Chloride) 250 mls @ 166.667 mls/hr IVPB Q12 SHERMAN; Protocol Last Admin: 10/04/18 08:50 Dose: 166.667 mls/hr Cefepime HCl 1 gm/ Sodium (Chloride) 100 mls @ 100 mls/hr IVPB Q12 SHERMAN; Protoco l Last Admin: 10/04/18 08:57 Dose: 100 mls/hr Ketorolac Tromethamine (Toradol) 30 mg IVP Q6 PRN PRN Reason: Pain, severe (8-10) Last Admin: 10/04/18 04:38 Dose: 30 mg Ketorolac Tromethamine (Toradol) 15 mg IVP Q6 PRN PRN Reason: Pain, moderate (4-7) Last Admin: 10/04/18 09:09 Dose: 15 mg Methadone HCl (Methadone) 110 mg PO DAILY SHERMAN Last Admin: 10/04/18 08:44 Dose: 110 mg - Labs Labs: 10/04/18 04:20 10/04/18 04:20 PT 13.9 Seconds (9.8-13.1) H 10/04/18 04:20 INR 1.2 10/04/18 04:20 APTT 36.7 Seconds (25.6-37.1) 10/04/18 04:20 - Constitutional Appears: No Acute Distress, Unkempt - Head Exam Head Exam: NORMAL INSPECTION - Eye Exam Eye Exam: Normal appearance Pupil Exam: NORMAL ACCOMODATION - ENT Exam ENT Exam: Mucous Membranes Moist - Neck Exam Neck Exam: Normal Inspection - Respiratory Exam Respiratory Exam: Clear to Ausculation Bilateral, NORMAL BREATHING PATTERN - GI/Abdominal Exam GI & Abdominal Exam: Soft, Normal Bowel Sounds - Back Exam Back Exam: NORMAL INSPECTION - Neurological Exam Neurological Exam: Alert, Awake, Oriented x3 - Psychiatric Exam Psychiatric exam: Normal Affect, Normal Mood - Skin Skin Exam: Warm Assessment and Plan - Assessment and Plan (Free Text) Assessment: 53 yo male patient, with PMHx of IV drug use, seen and evaluated for L hip/thigh pain Plan: 1) Left hip/thigh pain - U/s LLE: No evidence of DVT in the LLE - Hip/Pelvis Xray: Proximal L femur with pathological fracture, lytic destructive - CT LLE: Large destructive and infiltrative soft tissue mass lesion involving the left femoral head, neck, and possibly acetabular roof, with pathological fracture - ESR 113, CRP 45.1 - Urine cx, no growth, final - Blood cx, no growth after 24 hrs - Consult ID, per Dr. Mariscal consider primary neoplastic process of proximal L femur - C/w Vanco 1gm IVQ12 - C/w maxipeme 1gm IVQ12 - Consult Ortho, Dr. Rodney. Per Ortho, will follow up imaging, if patient surgical candidate will schedule for Sunday 10/07 - F/u MRI - F/u bone scan - C/w pain management 2) IV drug user/Substance use disorder - Urine toxicology: + methadone, + Cannabinoids - Methadone 110mg daily, [employer] contacted ([phone]) on 10/03/18, dose confirmed - HIV-1 Ab Reactive screen- Negative 3) DVT PPX - SCD <Tracey Tim - Last Filed: 10/12/18 10:18> Objective - Vital Signs/Intake and Output Vital Signs (last 24 hours): Temp Pulse Resp BP Pulse Ox 97.8 F 55 L 18 110/68 99 10/11/18 08:17 10/11/18 08:17 10/11/18 08:17 10/11/18 08:17 10/11/18 08:17 - Labs Labs: 10/10/18 05:50 10/10/18 10:59 PT 13.8 Seconds (9.8-13.1) H 10/09/18 09:10 INR 1.2 10/09/18 09:10 APTT 38.3 Seconds (25.6-37.1) H 10/09/18 09:10 Attending/Attestation - Attestation I have personally seen and examined this patient.: Yes I have fully participated in the care of the patient.: Yes I have reviewed all pertinent clinical information, including history, physical exam and plan: Yes Notes (Text): 10/12/18 10:18 Seen, examined, and discussed with resident. Agree with findings and plan as above.
[2018-10-04] MEDS: Calcium-Vit D 500 mg-200 Units Tab UD PO SCH (10:47)
[2018-10-04] MEDS: Cholecalciferol 1,000 INTLU TAB PO SCH (10:53)
--- NOTE | 2018-10-04 11:58 | CP.PCM.PN ---
Subjective - Date & Time of Evaluation Date of Evaluation: 10/04/18 Time of Evaluation: 11:52 - Subjective Subjective: Patient complaining of hip pain. Did not tolerate the MRI. Advised patient of the importance of the MRI and the bone scan in determining plan of treatment. Patient agrees to try again for MRI. No new complaints Objective - Vital Signs/Intake and Output Vital Signs (last 24 hours): Temp Pulse Resp BP Pulse Ox 98.3 F 69 18 127/71 96 10/04/18 08:10 10/04/18 08:10 10/04/18 08:10 10/04/18 08:10 10/04/18 08:10 Intake and Output: 10/04/18 10/04/18 06:59 18:59 Intake Total 1400 Balance 1400 - Medications Medications: Current Medications Acetaminophen (Tylenol 325mg Tab) 650 mg PO Q6 PRN PRN Reason: Pain, Mild (1-3) Calcium/Vitamin D (Oyster Shell Calcium/Vitamin D 500 Mg-200 Iu) 1 tab PO DAILY [facility] Last Admin: 10/04/18 10:47 Dose: 1 tab Cholecalciferol (Vitamin D) 2,000 intlu PO DAILY [facility]MAN Last Admin: 10/04/18 10:53 Dose: 2,000 intlu Vancomycin HCl 1 gm/ Sodium (Chloride) 250 mls @ 166.667 mls/hr IVPB Q12 [facility]MAN; Protocol Last Admin: 10/04/18 08:50 Dose: 166.667 mls/hr Cefepime HCl 1 gm/ Sodium (Chloride) 100 mls @ 100 mls/hr IVPB Q12 SHERMAN; Pr otocol Last Admin: 10/04/18 08:57 Dose: 100 mls/hr Ketorolac Tromethamine (Toradol) 30 mg IVP Q6 PRN PRN Reason: Pain, severe (8-10) Last Admin: 10/04/18 04:38 Dose: 30 mg Ketorolac Tromethamine (Toradol) 15 mg IVP Q6 PRN PRN Reason: Pain, moderate (4-7) Last Admin: 10/04/18 09:09 Dose: 15 mg Methadone HCl (Methadone) 110 mg PO DAILY SHERMAN Last Admin: 10/04/18 08:44 Dose: 110 mg - Labs Labs: 10/04/18 04:20 10/04/18 04:20 PT 13.9 Seconds (9.8-13.1) H 10/04/18 04:20 INR 1.2 10/04/18 04:20 APTT 36.7 Seconds (25.6-37.1) 10/04/18 04:20 - Constitutional Appears: In Acute Distress - Head Exam Head Exam: ATRAUMATIC - Neck Exam Neck Exam: Full ROM, Normal Inspection - Respiratory Exam Respiratory Exam: NORMAL BREATHING PATTERN - Cardiovascular Exam Additional comments: +DP/PT - Extremities Exam Additional comments: pain with any ROM left hip calves soft NT neg homans flaking skin, poor hygiene - Neurological Exam Neurological Exam: Alert, Awake, Oriented x3 - Psychiatric Exam Psychiatric exam: Normal Affect, Normal Mood - Skin Skin Exam: Dry, Intact, Normal Color, Warm Assessment and Plan (1) Pathological fracture of hip Assessment & Plan: Bone scan and MRI still pending HIV neg vit D very low Xrays from 08/18/2018 at [facility] demonstrate what is possible a chronic femoral neck fracture at that time. Images are of poor quality, so can not say that it is chronic or acute with certainty, and underlying AVN of femoral head as initial presentation or as sequela of possible fracture also consideration can not exclude infection or tumor either at this time ESR 113, CRP also elevated case d/w Dr. Rodney, agrees with above will follow up imaging, if patient surgical candidate will schedule for Sunday 10/07 Status: Acute (2) Vitamin D deficiency Assessment & Plan: supp Status: Acute
--- NOTE | 2018-10-04 20:16 | CP.PCM.PN ---
Subjective - Date & Time of Evaluation Date of Evaluation: 10/04/18 Time of Evaluation: 20:12 - Subjective Subjective: I D NOTE UNABLE TO TO TOLERATE MRI YESTERDAY WILL REATTEMPT HE HAS DISCUSSED c RESIDENT THE IMPORTANCE FOR HIS RX FOR PRESENT CONTINUE IV ANTIBIOTICS Objective - Vital Signs/Intake and Output Vital Signs (last 24 hours): Temp Pulse Resp BP Pulse Ox 97.8 F 80 18 123/69 98 10/04/18 19:03 10/04/18 19:03 10/04/18 19:03 10/04/18 19:03 10/04/18 19:03 - Medications Medications: Current Medications Acetaminophen (Tylenol 325mg Tab) 650 mg PO Q6 PRN PRN Reason: Pain, Mild (1-3) Calcium/Vitamin D (Oyster Shell Calcium/Vitamin D 500 Mg-200 Iu) 1 tab PO DAILY [facility]ERMAN Last Admin: 10/04/18 10:47 Dose: 1 tab Cholecalciferol (Vitamin D) 2,000 intlu PO DAILY [facility]MAN Last Admin: 10/04/18 10:53 Dose: 2,000 intlu Vancomycin HCl 1 gm/ Sodium (Chloride) 250 mls @ 166.667 mls/hr IVPB Q12 [facility]MAN; Protocol Last Admin: 10/04/18 08:50 Dose: 166.667 mls/hr Cefepime HCl 1 gm/ Sodium (Chloride) 100 mls @ 100 mls/hr IVPB Q12 [facility]ERMAN; Protocol Last Admin: 10/04/18 08:57 Dose: 100 mls/hr Ketorolac Tromethamine (Toradol) 30 mg IVP Q6 PRN PRN Reason: Pain, severe (8-10) Last Admin: 10/04/18 04:38 Dose: 30 mg Ketorolac Tromethamine (Toradol) 15 mg IVP Q6 PRN PRN Reason: Pain, moderate (4-7) Last Admin: 10/04/18 09:09 Dose: 15 mg Methadone HCl (Methadone) 110 mg PO DAILY SHERMAN Last Admin: 10/04/18 08:44 Dose: 110 mg - Labs Labs: 10/04/18 04:20 10/04/18 04:20 PT 13.9 Seconds (9.8-13.1) H 10/04/18 04:20 INR 1.2 10/04/18 04:20 APTT 36.7 Seconds (25.6-37.1) 10/04/18 04:20
[2018-10-05] MEDS: Cholecalciferol 1,000 INTLU TAB PO SCH (09:26)
[2018-10-05] MEDS: Calcium-Vit D 500 mg-200 Units Tab UD PO SCH (09:26)
--- NOTE | 2018-10-05 09:26 | CP.PCM.PN ---
<Arabella Llanes - Last Filed: 10/05/18 10:11> Subjective - Date & Time of Evaluation Date of Evaluation: 10/05/18 Time of Evaluation: 09:00 - Subjective Subjective: Pt seen and examined this morning. Found sleeping. Complained of hip pain on arousal. Otherwise endorses no other complaints Objective - Vital Signs/Intake and Output Vital Signs (last 24 hours): Temp Pulse Resp BP Pulse Ox 97.9 F 53 L 18 115/64 98 10/05/18 08:23 10/05/18 08:23 10/05/18 08:23 10/05/18 08:23 10/05/18 08:23 Intake and Output: 10/05/18 10/05/18 06:59 18:59 Intake Total 600 Output Total 1000 Balance -400 - Medications Medications: Current Medications Acetaminophen (Tylenol 325mg Tab) 650 mg PO Q6 PRN PRN Reason: Pain, Mild (1-3) Calcium/Vitamin D (Oyster Shell Calcium/Vitamin D 500 Mg-200 Iu) 1 tab PO DAILY SHERMAN Last Admin: 10/04/18 10:47 Dose: 1 tab Cholecalciferol (Vitamin D) 2,000 intlu PO DAILY SHERMAN Last Admin: 10/04/18 10:53 Dose: 2,000 intlu Vancomycin HCl 1 gm/ Sodium (Chloride) 250 mls @ 166.667 mls/hr IVPB Q12 [facility]ERMAN; Protocol Last Admin: 10/04/18 22:30 Dose: 166.667 mls/hr Cefepime HCl 1 gm/ Sodium (Chloride) 100 mls @ 100 mls/hr IVPB Q12 SHERMAN; Protocol Last Admin: 10/04/18 21:30 Dose: 100 mls/hr Ketorolac Tromethamine (Toradol) 30 mg IVP Q6 PRN PRN Reason: Pain, severe (8-10) Last Admin: 10/05/18 00:59 Dose: 30 mg Ketorolac Tromethamine (Toradol) 15 mg IVP Q6 PRN PRN Reason: Pain, moderate (4-7) Last Admin: 10/04/18 09:09 Dose: 15 mg Methadone HCl (Methadone) 110 mg PO DAILY SHERMAN Last Admin: 10/04/18 08:44 Dose: 110 mg - Labs Labs: 10/04/18 04:20 10/04/18 04:20 PT 13.9 Seconds (9.8-13.1) H 10/04/18 04:20 INR 1.2 10/04/18 04:20 APTT 36.7 Seconds (25.6-37.1) 10/04/18 04:20 - Constitutional Appears: No Acute Distress - Head Exam Head Exam: NORMAL INSPECTION - Eye Exam Eye Exam: Normal appearance - ENT Exam ENT Exam: Mucous Membranes Moist - Respiratory Exam Respiratory Exam: Clear to Ausculation Bilateral - Cardiovascular Exam Cardiovascular Exam: REGULAR RHYTHM, +S1, +S2 - GI/Abdominal Exam GI & Abdominal Exam: Soft, Normal Bowel Sounds. absent: Tenderness - Extremities Exam Extremities Exam: absent: Calf Tenderness, Full ROM (ROM of left extremity limit ed to pain, no redness or swelling of left hip joint), Pedal Edema - Neurological Exam Neurological Exam: Alert, Oriented x3 - Psychiatric Exam Psychiatric exam: Normal Affect - Skin Skin Exam: Normal Color Assessment and Plan - Assessment and Plan (Free Text) Assessment: Plan: Assessment: 53 yo male patient, with PMHx of IV drug use, seen and evaluated for L hip/thigh pain. Plan for MRI of left hip today. Plan for OR Sunday. Hold Lovenox and diet on Sunday night. 1) Left hip/thigh pain - U/s LLE: No evidence of DVT in the LLE - Hip/Pelvis Xray: Proximal L femur with pathological fracture, lytic destructive - CT LLE: Large destructive and infiltrative soft tissue mass lesion involving the left femoral head, neck, and possibly acetabular roof, with pathological fracture - ESR 113, CRP 45.1 - Urine cx, no growth, final - Blood cx, no growth after 24 hrs - Consult ID, per Dr. Mariscal consider primary neoplastic process of proximal L femur - C/w Vanco 1gm IVQ12 - C/w maxipeme 1gm IVQ12 - Consult Ortho, Dr. Rodney. Per Ortho, will follow up imaging, if patient surgical candidate will schedule for Sunday 10/07 - F/u MRI - F/u bone scan - C/w pain management 2) IV drug user/Substance use disorder - Urine toxicology: + methadone, + Cannabinoids - Methadone 110mg daily, [facility] contacted ([phone]) on 10/03/18, dose confirmed - HIV-1 Ab Reactive screen- Negative 3) DVT PPX - Lovenox SC daily - SCD <Fallon Farris - Last Filed: 10/05/18 13:57> Objective - Vital Signs/Intake and Output Vital Signs (last 24 hours): Temp Pulse Resp BP Pulse Ox 98.2 F 60 18 142/91 H 98 10/05/18 13:42 10/05/18 13:42 10/05/18 13:42 10/05/18 13:42 10/05/18 13:42 Intake and Output: 10/05/18 10/05/18 06:59 18:59 Intake Total 600 Output Total 1000 Balance -400 - Medications Medications: Current Medications Acetaminophen (Tylenol 325mg Tab) 650 mg PO Q6 PRN PRN Reason: Pain, Mild (1-3) Calcium/Vitamin D (Oyster Shell Calcium/Vitamin D 500 Mg-200 Iu) 1 tab PO DAILY SHERMAN Last Admin: 10/05/18 09:26 Dose: 1 tab Cholecalciferol (Vitamin D) 2,000 intlu PO DAILY SHERMAN Last Admin: 10/05/18 09:26 Dose: 2,000 intlu Enoxaparin Sodium (Lovenox) 40 mg SC DAILY SHERMAN; Protocol Stop: 10/06/18 23:55 Last Admin: 10/05/18 13:27 Dose: 40 mg Vancomycin HCl 1 gm/ Sodium (Chloride) 250 mls @ 166.667 mls/hr IVPB Q12 SHERMAN; Protocol Last Admin: 10/05/18 09:33 Dose: 166.667 mls/hr Cefepime HCl 1 gm/ Sodium (Chloride) 100 mls @ 100 mls/hr IVPB Q12 SHERMAN; Protocol Last Admin: 10/05/18 11:13 Dose: 100 mls/hr Iron Sucrose 100 mg/ Sodium (Chloride) 105 mls @ 105 mls/hr IVPB ONCE ONE Stop: 10/05/18 14:54 Ketorolac Tromethamine (Toradol) 30 mg IVP Q6 PRN PRN Reason: Pain, severe (8-10) Last Admin: 10/05/18 00:59 Dose: 30 mg Ketorolac Tromethamine (Toradol) 15 mg IVP Q6 PRN PRN Reason: Pain, moderate (4-7) Last Admin: 10/05/18 11:16 Dose: 15 mg Lorazepam (Ativan) 1 mg IVP ONCE PRN PRN Reason: Agitation prior to MRI Methadone HCl (Methadone) 110 mg PO DAILY SHERMAN Last Admin: 10/05/18 10:24 Dose: 110 mg - Labs Labs: 10/04/18 04:20 10/04/18 04:20 PT 13.9 Seconds (9.8-13.1) H 10/04/18 04:20 INR 1.2 10/04/18 04:20 APTT 36.7 Seconds (25.6-37.1) 10/04/18 04:20 Attending/Attestation - Attestation I have personally seen and examined this patient.: Yes I have fully participated in the care of the patient.: Yes I have reviewed all pertinent clinical information, including history, physical exam and plan: Yes
[2018-10-05] MEDS: Cefepime 1 GM in Sodium Chloride 0.9% 100 ML IVPB SCH ×2 (11:13→21:19)
[2018-10-05] MEDS: Enoxaparin 40 mg Syringe SC SCH (13:27)
[2018-10-05] MEDS ORDERED: Gadodiamide 287 MG/ML VIAL (15ML) IV ONE (14:00)
--- NOTE | 2018-10-05 17:40 | CP.PCM.PN ---
Subjective - Date & Time of Evaluation Date of Evaluation: 10/05/18 Time of Evaluation: 17:35 - Subjective Subjective: I D NOTE CULTURES ARE NEGATIVE AWAITING BONE SCAN ONCOLOGY TO SEE Objective - Vital Signs/Intake and Output Vital Signs (last 24 hours): Temp Pulse Resp BP Pulse Ox 97.6 F 80 20 130/78 95 10/05/18 16:16 10/05/18 16:16 10/05/18 16:16 10/05/18 16:16 10/05/18 16:16 Intake and Output: 10/05/18 10/05/18 06:59 18:59 Intake Total 600 Output Total 1000 Balance -400 - Medications Medications: Current Medications Acetaminophen (Tylenol 325mg Tab) 650 mg PO Q6 PRN PRN Reason: Pain, Mild (1-3) Calcium/Vitamin D (Oyster Shell Calcium/Vitamin D 500 Mg-200 Iu) 1 tab PO DAILY SHERMAN Last Admin: 10/05/18 09:26 Dose: 1 tab Cholecalciferol (Vitamin D) 2,000 intlu PO DAILY SHERMAN Last Admin: 10/05/18 09:26 Dose: 2,000 intlu Enoxaparin Sodium (Lovenox) 40 mg SC DAILY SHERMAN; Protocol Stop: 10/06/18 23:55 Last Admin: 10/05/18 13:27 Dose: 40 mg Vancomycin HCl 1 gm/ Sodium (Chloride) 250 mls @ 166.667 mls/hr IVPB Q12 SHERMAN; Protocol Last Admin: 10/05/18 09:33 Dose: 166.667 mls/hr Cefepime HCl 1 gm/ Sodium (Chloride) 100 mls @ 100 mls/hr IVPB Q12 SHERMAN; [place] col Last Admin: 10/05/18 11:13 Dose: 100 mls/hr Ketorolac Tromethamine (Toradol) 30 mg IVP Q6 PRN PRN Reason: Pain, severe (8-10) Last Admin: 10/05/18 00:59 Dose: 30 mg Ketorolac Tromethamine (Toradol) 15 mg IVP Q6 PRN PRN Reason: Pain, moderate (4-7) Last Admin: 10/05/18 11:16 Dose: 15 mg Lorazepam (Ativan) 1 mg IVP ONCE PRN PRN Reason: Agitation prior to MRI Last Admin: 10/05/18 14:02 Dose: 1 mg Methadone HCl (Methadone) 110 mg PO DAILY SHERMAN Last Admin: 10/05/18 10:24 Dose: 110 mg - Labs Labs: 10/04/18 04:20 10/04/18 04:20 PT 13.9 Seconds (9.8-13.1) H 10/04/18 04:20 INR 1.2 10/04/18 04:20 APTT 36.7 Seconds (25.6-37.1) 10/04/18 04:20
[2018-10-06] MEDS: Cefepime 1 GM in Sodium Chloride 0.9% 100 ML IVPB SCH ×2 (08:25→21:00)
[2018-10-06] MEDS: Enoxaparin 40 mg Syringe SC SCH (08:27)
[2018-10-06] MEDS: Calcium-Vit D 500 mg-200 Units Tab UD PO SCH (08:27)
[2018-10-06] MEDS: Cholecalciferol 1,000 INTLU TAB PO SCH (08:28)
--- NOTE | 2018-10-06 10:10 | CP.PCM.PN ---
<Maya Barajas - Last Filed: 10/06/18 11:20> Subjective - Date & Time of Evaluation Date of Evaluation: 10/06/18 Time of Evaluation: 09:10 - Subjective Subjective: Patient seen this morning at bedside, c/o pain on her left hip 09/04, located to the lateral aspect of the hip, states is constant with no radiation. Denies chest pain, SOB, N/V, chills. Objective - Vital Signs/Intake and Output Vital Signs (last 24 hours): Temp Pulse Resp BP Pulse Ox 98.0 F 53 L 18 119/70 97 10/06/18 08:00 10/06/18 08:00 10/06/18 08:00 10/06/18 08:00 10/06/18 08:00 - Medications Medications: Current Medications Acetaminophen (Tylenol 325mg Tab) 650 mg PO Q6 PRN PRN Reason: Pain, Mild (1-3) Calcium/Vitamin D (Oyster Shell Calcium/Vitamin D 500 Mg-200 Iu) 1 tab PO DAILY SHERMAN Last Admin: 10/06/18 08:27 Dose: 1 tab Cholecalciferol (Vitamin D) 2,000 intlu PO DAILY SHERMAN Last Admin: 10/06/18 08:28 Dose: 2,000 intlu Enoxaparin Sodium (Lovenox) 40 mg SC DAILY SHERMAN; Protocol Stop: 10/06/18 23:55 Last Admin: 10/06/18 08:27 Dose: 40 mg Vancomycin HCl 1 gm/ Sodium (Chloride) 250 mls @ 166.667 mls/hr IVPB Q12 SHERMAN; Protocol Last Admin: 10/06/18 08:26 Dose: 166.667 mls/hr Cefepime HCl 1 gm/ Sodium (Chloride) 100 mls @ 100 mls/hr IVPB Q12 [facility]MAN; Protocol Last Admin: 10/06/18 08:25 Dose: 100 mls/hr Ketorolac Tromethamine (Toradol) 30 mg IVP Q6 PRN PRN Reason: Pain, severe (8-10) Last Admin: 10/06/18 08:22 Dose: 30 mg Ketorolac Tromethamine (Toradol) 15 mg IVP Q6 PRN PRN Reason: Pain, moderate (4-7) Last Admin: 10/05/18 11:16 Dose: 15 mg Lorazepam (Ativan) 1 mg IVP ONCE PRN PRN Reason: Agitation prior to MRI Last Admin: 10/05/18 14:02 Dose: 1 mg Methadone HCl (Methadone) 110 mg PO DAILY SHERMAN Last Admin: 10/06/18 08:38 Dose: 110 mg - Labs Labs: 10/04/18 04:20 10/04/18 04:20 PT 13.9 Seconds (9.8-13.1) H 10/04/18 04:20 INR 1.2 10/04/18 04:20 APTT 36.7 Seconds (25.6-37.1) 10/04/18 04:20 - Constitutional Appears: In Acute Distress (due to pain) - Head Exam Head Exam: ATRAUMATIC, NORMOCEPHALIC - Eye Exam Eye Exam: EOMI - ENT Exam ENT Exam: Mucous Membranes Moist - Neck Exam Neck Exam: Full ROM - Respiratory Exam Respiratory Exam: Clear to Ausculation Bilateral - Cardiovascular Exam Cardiovascular Exam: RRR, +S1, +S2 - GI/Abdominal Exam GI & Abdominal Exam: Soft, Normal Bowel Sounds. absent: Tenderness - Extremities Exam Extremities Exam: Tenderness. absent: Pedal Edema Additional comments: There is a mild deformity and swelling of the left hip external proximal aspect vs normal appearance of right hip. Left hip tenderness to any attempt to ROM - Neurological Exam Neurological Exam: Alert, Awake, Oriented x3 - Psychiatric Exam Psychiatric exam: Normal Affect - Skin Skin Exam: Normal Color, Warm Assessment and Plan - Assessment and Plan (Free Text) Assessment: 53 yo male patient, with PMHx of IV drug use, seen and evaluated for L hip/thigh pain. 1) Left hip/thigh pain - U/s LLE: No evidence of DVT in the LLE - Hip/Pelvis Xray: Proximal L femur with pathological fracture, lytic destructive - CT LLE: Large destructive and infiltrative soft tissue mass lesion involving the left femoral head, neck, and possibly acetabular roof, with pathological fracture - ESR 113, CRP 45.1 - Urine cx, no growth, final - Blood cx, no growth after 24 hrs - Consult ID, per Dr. Mariscal consider primary neoplastic process of proximal L femur - Consult Dr Bray hematology-oncology, recommendation appreciated. - C/w Vanco 1gm IVQ12 - C/w maxipeme 1gm IVQ12 - Consult Ortho, Dr. Rodney, recommendation appreciated - Plan for MRI pending - F/u bone scan - C/w pain management 2) IV drug user/Substance use disorder - Urine toxicology: + methadone, + Cannabinoids - Methadone 110mg daily, [facility] contacted ([phone]) on 10/03/18, dose confirmed - HIV-1 Ab Reactive screen- Negative 3) DVT PPX - Lovenox SC daily - SCD <BrentonFallonjoseph Franklin - Last Filed: 10/06/18 15:55> Objective - Vital Signs/Intake and Output Vital Signs (last 24 hours): Temp Pulse Resp BP Pulse Ox 98 F 58 L 18 123/70 97 10/06/18 13:55 10/06/18 13:55 10/06/18 13:55 10/06/18 13:55 10/06/18 13:55 - Medications Medications: Current Medications Acetaminophen (Tylenol 325mg Tab) 650 mg PO Q6 PRN PRN Reason: Pain, Mild (1-3) Calcium/Vitamin D (Oyster Shell Calcium/Vitamin D 500 Mg-200 Iu) 1 tab PO DAILY SHERMAN Last Admin: 10/06/18 08:27 Dose: 1 tab Cholecalciferol (Vitamin D) 2,000 intlu PO DAILY SHERMAN Last Admin: 10/06/18 08:28 Dose: 2,000 intlu Enoxaparin Sodium (Lovenox) 40 mg SC DAILY SHERMAN; Protocol Stop: 10/06/18 23:55 Last Admin: 10/06/18 08:27 Dose: 40 mg Vancomycin HCl 1 gm/ Sodium (Chloride) 250 mls @ 166.667 mls/hr IVPB Q12 SHERMAN; Protocol Last Admin: 10/06/18 08:26 Dose: 166.667 mls/hr Cefepime HCl 1 gm/ Sodium (Chloride) 100 mls @ 100 mls/hr IVPB Q12 SHERMAN; Protocol Last Admin: 10/06/18 08:25 Dose: 100 mls/hr Ketorolac Tromethamine (Toradol) 30 mg IVP Q6 PRN PRN Reason: Pain, severe (8-10) Last Admin: 10/06/18 08:22 Dose: 30 mg Ketorolac Tromethamine (Toradol) 15 mg IVP Q6 PRN PRN Reason: Pain, moderate (4-7) Last Admin: 10/05/18 11:16 Dose: 15 mg Lorazepam (Ativan) 1 mg IVP ONCE PRN PRN Reason: Agitation prior to MRI Last Admin: 10/05/18 14:02 Dose: 1 mg Methadone HCl (Methadone) 110 mg PO DAILY SHERMAN Last Admin: 10/06/18 08:38 Dose: 110 mg Oxycodone/Acetaminophen (Percocet 5/325 Mg Tab) 1 tab PO Q6 PRN PRN Reason: Pain, moderate (4-7) Stop: 10/09/18 13:21 - Labs Labs: 10/04/18 04:20 10/04/18 04:20 PT 13.9 Seconds (9.8-13.1) H 10/04/18 04:20 INR 1.2 10/04/18 04:20 APTT 36.7 Seconds (25.6-37.1) 10/04/18 04:20 Attending/Attestation - Attestation I have personally seen and examined this patient.: Yes I have fully participated in the care of the patient.: Yes I have reviewed all pertinent clinical information, including history, physical exam and plan: Yes Notes (Text): 1. Destructive Process Left Hip Infectious vs Malignancy - Ortho consulted - Dr Rodney -rec Oncology eval- Dr Bray consulted - Dr Mariscal on the case - cont IV Vanco and Cefepime ( pt is an IV drug user) - Pain mgt 2. HIV ruled out 3. Hep C + 4. IVDU on Methadone - pt is followed at [facility] 10/06/18 15:55
--- NOTE | 2018-10-06 18:37 | CP.PCM.CON ---
History of Present Illness - History of Present Illness History of Present Illness: 53 year old homeless man with a history of hep c, IVDA, presenting with hip pain and leg swelling, found to have destructive mass involving the left femoral head and concern for malignancy. The patient reports to left hip pain for about 2-3 months and has required the use of crutches. He does admit to subjective fevers and chills. He is awaiting an MRI and bone scan. Past medical history: hep C, IVDA Past surgical history: Denies Family history: Denies hematologic and oncologic problems Social history: hx of IVDA Allergies: NKA Review of systems: All remaining review of systems including HEENT, cardiovascular, respiratory, gastrointestinal, genitourinary, musculoskeletal, dermatologic, neurologic, and psychiatric are negative unless mentioned in the HPI. Past Patient History - Infectious Disease Hx of Infectious Diseases: None - Past Medical History & Family History Past Medical History?: Yes Past Family History: Reviewed and not pertinent - Past Social History Alcohol: None Drugs: Other (former heroin abuser (injection) ) - CARDIAC Hx Hypertension: No - PULMONARY Hx Respiratory Disorders: No - NEUROLOGICAL Hx Neurological Disorder: No - HEENT Hx HEENT Problems: No - RENAL Hx Chronic Kidney Disease: No - ENDOCRINE/METABOLIC Hx Diabetes Mellitus Type 2: No - HEMATOLOGICAL/ONCOLOGICAL Hx Human Immunodeficiency Virus (HIV): Yes - INTEGUMENTARY Hx Dermatological Problems: No - MUSCULOSKELETAL/RHEUMATOLOGICAL Hx Musculoskeletal Disorders: No Hx Falls: No - GASTROINTESTINAL Hx Gastrointestinal Disorders: No - GENITOURINARY/GYNECOLOGICAL Hx Genitourinary Disorders: No - PSYCHIATRIC Hx Substance Use: Yes - SURGICAL HISTORY Hx Surgeries: No - ANESTHESIA Hx Anesthesia: No Meds Allergies/Adverse Reactions: Allergies Allergy/AdvReac Type Severity Reaction Status Date / Time No Known Allergies Allergy Verified 10/02/18 11:15 - Medications Medications: Current Medications Acetaminophen (Tylenol 325mg Tab) 650 mg PO Q6 PRN PRN Reason: Pain, Mild (1-3) Calcium/Vitamin D (Oyster Shell Calcium/Vitamin D 500 Mg-200 Iu) 1 tab PO DAILY SHERMAN Last Admin: 10/06/18 08:27 Dose: 1 tab Cholecalciferol (Vitamin D) 2,000 intlu PO DAILY [facility]ERMAN Last Admin: 10/06/18 08:28 Dose: 2,000 intlu Enoxaparin Sodium (Lovenox) 40 mg SC DAILY SHERMAN; Protocol Stop: 10/06/18 23:55 Last Admin: 10/06/18 08:27 Dose: 40 mg Vancomycin HCl 1 gm/ Sodium (Chloride) 250 mls @ 166.667 mls/hr IVPB Q12 [facility]ERMAN; Protocol Last Admin: 10/06/18 08:26 Dose: 166.667 mls/hr Cefepime HCl 1 gm/ Sodium (Chloride) 100 mls @ 100 mls/hr IVPB Q12 SHERMAN; Protocol Last Admin: 10/06/18 08:25 Dose: 100 mls/hr Ketorolac Tromethamine (Toradol) 30 mg IVP Q6 PRN PRN Reason: Pain, severe (8-10) Last Admin: 10/06/18 17:51 Dose: 30 mg Ketorolac Tromethamine (Toradol) 15 mg IVP Q6 PRN PRN Reason: Pain, moderate (4-7) Last Admin: 10/05/18 11:16 Dose: 15 mg Lorazepam (Ativan) 1 mg IVP ONCE PRN PRN Reason: Agitation prior to MRI Last Admin: 10/05/18 14:02 Dose: 1 mg Methadone HCl (Methadone) 110 mg PO DAILY [facility]ERMAN Last Admin: 10/06/18 08:38 Dose: 110 mg Oxycodone/Acetaminophen (Percocet 5/325 Mg Tab) 1 tab PO Q6 PRN PRN Reason: Pain, moderate (4-7) Stop: 10/09/18 13:21 Physical Exam - Head Exam Head Exam: ATRAUMATIC - Eye Exam Eye Exam: Normal appearance - ENT Exam ENT Exam: Mucous Membranes Dry - Respiratory Exam Respiratory Exam: NORMAL BREATHING PATTERN - Cardiovascular Exam Cardiovascular Exam: +S1, +S2 - GI/Abdominal Exam GI & Abdominal Exam: Normal Bowel Sounds - Extremities Exam Extremities exam: Positive for: pedal edema - Neurological Exam Neurological exam: Oriented x3 - Psychiatric Exam Psychiatric exam: Normal Affect, Normal Mood - Skin Skin Exam: Warm Results - Vital Signs Recent Vital Signs: Last Vital Signs Temp 97.9 F 10/06/18 17:49 Pulse 57 L 10/06/18 17:49 Resp 18 10/06/18 17:49 BP 148/82 10/06/18 17:49 Pulse Ox 96 10/06/18 17:49 - Labs Result Diagrams: 10/04/18 04:20 10/04/18 04:20 Labs: Laboratory Results - last 24 hr 10/06/18 11:20 Vancomycin Trough 28.1 H Assessment & Plan (1) Pathological fracture of hip Assessment and Plan: will check CT C/A/P to evaluate for malignancy bone scan and MRI pending myeloma w/u sent Status: Acute (2) Anemia Assessment and Plan: will check retic count, b12, folate to further characterize Thank you for this interesting consult. Status: Acute
[2018-10-06] MEDS ORDERED: Iohexol 240 (50 ml) PO ONE (18:41)
[2018-10-07 06:36] LABS: HEMOGLOBIN 11.2 g/dL (12.0-18.0); MEAN CELL VOLUME 80.2 fl (80.0-94.0); MEAN CORPUSCULAR HGB CONC 32.5 g/dL (33.0-37.0); RBC 4.31 Mil/uL (4.40-5.90); RED CELL DISTRIBUTION WIDTH 17.3 % (11.5-14.5); WHITE BLOOD COUNT 7.3 K/uL (4.8-10.8)
[2018-10-07 06:38] LABS: INR 1.2
[2018-10-07 06:41] LABS: PARTIAL THROMBOPLASTIN TIME 38.3 Seconds (25.6-37.1)
[2018-10-07 06:52] LABS: ALB/GLOB RATIO 0.7 (1.0-2.1); ALT/SGPT 22 U/L (21-72); AST/SGOT 22 U/L (17-59); BLOOD UREA NITROGEN 18 mg/dl (9-20); CALCIUM 8.6 mg/dL (8.4-10.2); GFR NON-AFRICAN AMERICAN > 60
[2018-10-07] MEDS: Cefepime 1 GM in Sodium Chloride 0.9% 100 ML IVPB SCH ×2 (08:36→21:40)
[2018-10-07] MEDS: Oxycodone/Acetaminophen 5/325 mg Tab PO PRN (08:53)
--- NOTE | 2018-10-07 08:54 | CP.PCM.PN ---
<Maya Barajas - Last Filed: 10/07/18 11:54> Subjective - Date & Time of Evaluation Date of Evaluation: 10/07/18 Time of Evaluation: 08:40 - Subjective Subjective: Patient seen today at bedside, c/o pain on her left hip. Denies chest pain, SOB, N/V, chills. Patient is waiting, drinking PO contrast to have Abdomen/pelvis CT scan done today, also bone scan is planned for today. Objective - Vital Signs/Intake and Output Vital Signs (last 24 hours): Temp Pulse Resp BP Pulse Ox 97.4 F L 57 L 18 152/82 H 96 10/07/18 00:53 10/06/18 17:49 10/07/18 00:53 10/07/18 00:53 10/07/18 00:53 - Medications Medications: Current Medications Acetaminophen (Tylenol 325mg Tab) 650 mg PO Q6 PRN PRN Reason: Pain, Mild (1-3) Calcium/Vitamin D (Oyster Shell Calcium/Vitamin D 500 Mg-200 Iu) 1 tab PO DAILY [facility] Last Admin: 10/06/18 08:27 Dose: 1 tab Cholecalciferol (Vitamin D) 2,000 intlu PO DAILY [facility] Last Admin: 10/06/18 08:28 Dose: 2,000 intlu Vancomycin HCl 1 gm/ Sodium (Chloride) 250 mls @ 166.667 mls/hr IVPB Q12 [facility]; Protocol Last Admin: 10/07/18 08:41 Dose: 166.667 mls/hr Cefepime HCl 1 gm/ Sodium (Chloride) 100 mls @ 100 mls/hr IVPB Q12 [facility]; Protocol Last Admin: 10/07/18 08:36 Dose: 100 mls/hr Ketorolac Tromethamine (Toradol) 30 mg IVP Q6 PRN PRN Reason: Pain, severe (8-10) Last Admin: 10/06/18 17:51 Dose: 30 mg Ketorolac Tromethamine (Toradol) 15 mg IVP Q6 PRN PRN Reason: Pain, moderate (4-7) Last Admin: 10/05/18 11:16 Dose: 15 mg Lorazepam (Ativan) 1 mg IVP ONCE PRN PRN Reason: Agitation prior to MRI Last Admin: 10/05/18 14:02 Dose: 1 mg Methadone HCl (Methadone) 110 mg PO DAILY [facility] Last Admin: 10/07/18 08:52 Dose: 110 mg Oxycodone/Acetaminophen (Percocet 5/325 Mg Tab) 1 tab PO Q6 PRN PRN Reason: Pain, moderate (4-7) Stop: 10/09/18 13:21 Last Admin: 10/07/18 08:53 Dose: 1 tab - Labs Labs: 10/07/18 05:50 10/07/18 05:50 PT 14.0 Seconds (9.8-13.1) H 10/07/18 05:50 INR 1.2 10/07/18 05:50 APTT 38.3 Seconds (25.6-37.1) H 10/07/18 05:50 - Additional Findings Additional findings: - Constitutional Appears: NAD - Head Exam Head Exam: ATRAUMATIC, NORMOCEPHALIC - Eye Exam Eye Exam: EOMI - ENT Exam ENT Exam: Mucous Membranes Moist - Neck Exam Neck Exam: Full ROM - Respiratory Exam Respiratory Exam: Clear to Ausculation Bilateral - Cardiovascular Exam Cardiovascular Exam: RRR, +S1, +S2 - GI/Abdominal Exam GI & Abdominal Exam: Soft, Normal Bowel Sounds. absent: Tenderness - Extremities Exam Extremities Exam: Tenderness. absent: Pedal Edema Additional comments: There is a mild deformity and swelling of the left hip external proximal aspect compared to normal appearance of right hip, also Left leg is external rotated. Left hip tenderness to any attempt to ROM - Neurological Exam Neurological Exam: Alert, Awake, Oriented x3 - Psychiatric Exam Psychiatric exam: Normal Affect - Skin Skin Exam: Normal Color, Warm Assessment and Plan - Assessment and Plan (Free Text) Assessment: 53 yo male patient, with PMHx of IV drug use, seen and admitted from ED for L hip/thigh pain of approximately 3 months, Hip/Pelvis X ray howed an extensive destruction of the proximal left femur with pathological fracture, the favored considerations are a lytic destructive neoplasm vs destructive left septic arth rosis, in addition CT Scan swrrounding shows soft tissue swelling including adductor and quadriceps muscle. Plan: 1) Left hip/thigh pain - Hip/Pelvis Xray: Proximal L femur with pathological fracture, lytic destructive - CT LLE: Large destructive and infiltrative soft tissue mass lesion involving the left femoral head, neck, and possibly acetabular roof, with pathological fracture - ESR 113, CRP 45.1 - Urine cx, no growth, final - Blood cx, no growth after 24 hrs - Consult ID, per Dr. Mariscal consider primary neoplastic process of proximal L femur - Consult Dr Bray hematology-Recommendation appreciated - C/w Vanco 1gm IVQ12 - C/w maxipeme 1gm IVQ12 - Consult Ortho, Dr. Rodney, recommendation appreciated - LE US negative - Abd and pelvis CT, pending results - Plan for MRI pending - Bone scan, pending - C/w pain management 2) IV drug user/Substance use disorder - Urine toxicology: + methadone, + Cannabinoids - Methadone 110mg daily, [employer] contacted ([phone]) on 10/03/18, dose confirmed - HIV-1 Ab Reactive screen- Negative - Hep C + reactive 3) DVT PPX - SCD <Fallon Farris - Last Filed: 10/07/18 14:40> Objective - Vital Signs/Intake and Output Vital Signs (last 24 hours): Temp Pulse Resp BP Pulse Ox 97.5 F L 56 L 20 133/79 99 10/07/18 09:00 10/07/18 09:00 10/07/18 09:00 10/07/18 09:00 10/07/18 09:00 - Medications Medications: Current Medications Acetaminophen (Tylenol 325mg Tab) 650 mg PO Q6 PRN PRN Reason: Pain, Mild (1-3) Calcium/Vitamin D (Oyster Shell Calcium/Vitamin D 500 Mg-200 Iu) 1 tab PO DAILY [facility] Last Admin: 10/06/18 08:27 Dose: 1 tab Cholecalciferol (Vitamin D) 2,000 intlu PO DAILY [facility] Last Admin: 10/06/18 08:28 Dose: 2,000 intlu Vancomycin HCl 1 gm/ Sodium (Chloride) 250 mls @ 166.667 mls/hr IVPB Q12 [facility]; Protocol Last Admin: 10/07/18 08:41 Dose: 166.667 mls/hr Cefepime HCl 1 gm/ Sodium (Chloride) 100 mls @ 100 mls/hr IVPB Q12 [facility]; Protocol Last Admin: 10/07/18 08:36 Dose: 100 mls/hr Ketorolac Tromethamine (Toradol) 30 mg IVP Q6 PRN PRN Reason: Pain, severe (8-10) Last Admin: 10/06/18 17:51 Dose: 30 mg Ketorolac Tromethamine (Toradol) 15 mg IVP Q6 PRN PRN Reason: Pain, moderate (4-7) Last Admin: 10/05/18 11:16 Dose: 15 mg Lorazepam (Ativan) 1 mg IVP ONCE PRN PRN Reason: Agitation prior to MRI Last Admin: 10/05/18 14:02 Dose: 1 mg Methadone HCl (Methadone) 110 mg PO DAILY [facility] Last Admin: 10/07/18 08:52 Dose: 110 mg Oxycodone/Acetaminophen (Percocet 5/325 Mg Tab) 1 tab PO Q6 PRN PRN Reason: Pain, moderate (4-7) Stop: 10/09/18 13:21 Last Admin: 10/07/18 08:53 Dose: 1 tab - Labs Labs: 10/07/18 05:50 10/07/18 05:50 PT 14.0 Seconds (9.8-13.1) H 10/07/18 05:50 INR 1.2 10/07/18 05:50 APTT 38.3 Seconds (25.6-37.1) H 10/07/18 05:50 Attending/Attestation - Attestation I have personally seen and examined this patient.: Yes I have fully participated in the care of the patient.: Yes I have reviewed all pertinent clinical information, including history, physical exam and plan: Yes Notes (Text): 1. Destructive Process Left Hip prob infectious, less likely Malignancy - Bone scan : Uptake in the left hip affecting both proximal femur and acetabulum likely reflects infectious/inflammatory etiology. Less likely considerations would be neoplasm. - Ortho consulted - Dr Rodney -Oncology eval- Dr Bray consulted - Dr Mariscal on the case - cont IV Vanco and Cefepime ( pt is an IV drug user) - Pain mgt 2. HIV ruled out 3. Hep C + 4. IVDU on Methadone - pt is followed at [facility]
[2018-10-07] MEDS ORDERED: Iohexol 300 100 ML IJ ONE (10:20)
[2018-10-07] MEDS ORDERED: Sodium Chloride 0.9% 50 ML IV ONE (10:20)
[2018-10-07 12:10] LABS: FOLATE 3.5 ng/mL
--- NOTE | 2018-10-07 13:49 | NM ---
Date of service: 10/03/2018 PROCEDURE: Whole Body Bone Scan HISTORY: r/o malignancy left hip COMPARISON: 10/02/2018 CT pelvis left hip TECHNIQUE: Following administration of 25.6 miCu of Tc MDP multiplanar whole body images were obtained. FINDINGS: Evidence for bony metastatic disease: None. Degenerative uptake: Bilateral knees Physiologic uptake: Normal physiologic activity in the kidneys. Other findings: Uptake in the left hip affecting both proximal femur and acetabulum likely reflects infectious/inflammatory etiology. Less likely considerations would be neoplasm. IMPRESSION: Confirmatory findings left hip better visualized on recent CT scan. No evidence of metastatic disease.
--- NOTE | 2018-10-07 14:56 | CT ---
Date of service: 10/07/2018 PROCEDURE: CT Chest, Abdomen and Pelvis with intravenous contrast HISTORY: rule out malignancy COMPARISON: None available. TECHNIQUE: IV dose administered: Radiation dose: Total exam DLP = 428.44 mGy-cm. This CT exam was performed using one or more of the following dose reduction techniques: Automated exposure control, adjustment of the mA and/or kV according to patient size, and/or use of iterative reconstruction technique. FINDINGS: CT CHEST WITH CONTRAST: LUNGS: No definite dominant pulmonary mass bilaterally. Limited bilateral basilar dependent atelectasis identified as well as trace centrilobular emphysema primarily at the pulmonary apices. No airspace disease bilaterally. Linear atelectasis or fibrosis in the right lower lobe. MEDIASTINUM: Unremarkable. Normal caliber aorta and pulmonary arterial trunk. No aortic dissection. Normal size heart. LYMPH NODES: Unremarkable. PLEURA: Unremarkable. No pneumothorax. No pleural fluid. BONES: Multiple thoracic compression fractures are identified of indeterminate age seen [id number] at T7 and [id number] at T6, T8, T9 and T10. No destructive bony lesion appreciable. OTHER FINDINGS: None. CT ABDOMEN AND PELVIS: LIVER: Unremarkable. No gross lesion or ductal dilatation. GALLBLADDER AND BILE DUCTS: Unremarkable. PANCREAS: Unremarkable. No gross lesion or ductal dilatation. SPLEEN: Unremarkable. ADRENALS: Unremarkable. No mass. KIDNEYS AND URETERS: Unremarkable. No hydronephrosis. No solid mass. VASCULATURE: Nonaneurysmal abdominal aortic calcific atherosclerotic changes are identified. BOWEL: Relatively prominent retained fecal material scattered throughout the large bowel in a pattern that may reflect constipation. Clinically correlate further. No obstruction. No gross mural thickening. APPENDIX: Not identified. PERITONEUM: There is a paucity of intra peritoneal and extraperitoneal fat with the fat that is identified appearing injected. The pattern is one of cachexia and mild anasarca. There is a small ventral abdominal hernia containing only fat at the upper abdomen. LYMPH NODES: No gross lymphadenopathy.. BLADDER: Unremarkable. REPRODUCTIVE: Unremarkable. BONES: Gross destructive bony changes seen at the proximal left femur once again, not significantly changed when compared to prior CT left hip 10/02/2018. No other aggressive bony findings although fractures of indeterminate age is seen at the mid to inferior thoracic spine. OTHER FINDINGS: None. IMPRESSION: 1. Anasarca and cachexia are identified in this patient however there is no definitive features that would suggest malignancy in the chest, abdomen and pelvis at this time. Limited COPD is identified in the chest. 2. Likely constipation as discussed above. No bowel obstruction appreciable. 3. Consider follow-up whole-body bone scan or possible nuclear PET CT for additional characterization. Alternatively, biopsy of left femoral neck/femoral head under CT control is also an option.
--- NOTE | 2018-10-07 14:56 | CP.PCM.PN ---
Subjective - Date & Time of Evaluation Date of Evaluation: 10/07/18 Time of Evaluation: 14:55 - Subjective Subjective: Patient complains of hip pain. Asking for methadone. Encouraged to complete MRI left hip. Objective - Vital Signs/Intake and Output Vital Signs (last 24 hours): Temp Pulse Resp BP Pulse Ox 97.5 F L 56 L 20 133/79 99 10/07/18 09:00 10/07/18 09:00 10/07/18 09:00 10/07/18 09:00 10/07/18 09:00 - Medications Medications: Current Medications Acetaminophen (Tylenol 325mg Tab) 650 mg PO Q6 PRN PRN Reason: Pain, Mild (1-3) Calcium/Vitamin D (Oyster Shell Calcium/Vitamin D 500 Mg-200 Iu) 1 tab PO DAILY REPLACED BY [facility] Last Admin: 10/06/18 08:27 Dose: 1 tab Cholecalciferol (Vitamin D) 2,000 intlu PO DAILY [facility]PL[facility] BY [facility] Last Admin: 10/06/18 08:28 Dose: 2,000 intlu Vancomycin HCl 1 gm/ Sodium (Chloride) 250 mls @ 166.667 mls/hr IVPB Q12 [facility]; Protocol Last Admin: 10/07/18 08:41 Dose: 166.667 mls/hr Cefepime HCl 1 gm/ Sodium (Chloride) 100 mls @ 100 mls/hr IVPB Q12 [facility]; Protocol Last Admin: 10/07/18 08:36 Dose: 100 mls/hr Ketorolac Tromethamine (Toradol) 30 mg IVP Q6 PRN PRN Reason: Pain, severe (8-10) Last Admin: 10/06/18 17:51 Dose: 30 mg Ketorolac Tromethamine (Toradol) 15 mg IVP Q6 PRN PRN Reason: Pain, moderate (4-7) Last Admin: 10/05/18 11:16 Dose: 15 mg Lorazepam (Ativan) 1 mg IVP ONCE PRN PRN Reason: Agitation prior to MRI Last Admin: 10/05/18 14:02 Dose: 1 mg Methadone HCl (Methadone) 110 mg PO DAILY [facility]PL[facility] BY [facility] Last Admin: 10/07/18 08:52 Dose: 110 mg Oxycodone/Acetaminophen (Percocet 5/325 Mg Tab) 1 tab PO Q6 PRN PRN Reason: Pain, moderate (4-7) Stop: 10/09/18 13:21 Last Admin: 10/07/18 08:53 Dose: 1 tab - Labs Labs: 10/07/18 05:50 10/07/18 05:50 PT 14.0 Seconds (9.8-13.1) H 10/07/18 05:50 INR 1.2 10/07/18 05:50 APTT 38.3 Seconds (25.6-37.1) H 10/07/18 05:50 - Extremities Exam Additional comments: pain with any ROM left hip calves soft NT neg homans flaking skin, poor hygiene +ROM ankle/toes Assessment and Plan (1) Pathological fracture of hip Assessment & Plan: MRI still pending bone scan states likely infectious/inflammatory etiology, Less likely neoplasm vit D very low Xrays from 08/18/2018 at [facility] [place] demonstrate what is possible a chronic femoral neck fracture at that time. Images are of poor quality, so can not say that it is chronic or acute with certainty, and underlying AVN of femoral head as initial presentation or as sequela of possible fracture also consideration can not exclude infection or tumor either at this time ESR 113, CRP also elevated case d/w Dr. Rodney, agrees with above will follow up imaging, if patient surgical candidate will schedule for later this week. Surgery cancelled today as work up not completed. Status: Acute (2) Vitamin D deficiency Status: Acute Radiology Interpretation - Radiology Interpretation #2 Interpretation: Patient Name / ID : LAUREN WADE / [id number] Exam Date : 10/03/2018 11:45:00 ( Approved ) Study Comment : Sex / Age : M / 53Y Creator : Iván Rivera MD Dictator : Iván Rivera MD Cardiovascular Tech : Customer Account Manager : Iván Rivera MD Approver2 : Report Date : 10/07/2018 13:45:13 My Comment : Date of service: 10/03/2018 PROCEDURE: Whole Body Bone Scan HISTORY: r/o malignancy left hip COMPARISON: 10/02/2018 CT pelvis left hip TECHNIQUE: Following administration of 25.6 miCu of Tc MDP multiplanar whole body images were obtained. FINDINGS: Evidence for bony metastatic disease: None. Degenerative uptake: Bilateral knees Physiologic uptake: Normal physiologic activity in the kidneys. Other findings: Uptake in the left hip affecting both proximal femur and acetabulum likely reflects infectious/inflammatory etiology. Less likely considerations would be neoplasm. IMPRESSION: Confirmatory findings left hip better visualized on recent CT scan. No evidence of metastatic disease.
[2018-10-07] MEDS: Cholecalciferol 1,000 INTLU TAB PO SCH (16:26)
[2018-10-07] MEDS: Calcium-Vit D 500 mg-200 Units Tab UD PO SCH (16:26)
[2018-10-07] MEDS: Enoxaparin 40 mg Syringe SC SCH (18:05)
--- NOTE | 2018-10-07 22:53 | CP.PCM.PN ---
Subjective - Date & Time of Evaluation Date of Evaluation: 10/07/18 Time of Evaluation: 19:00 - Subjective Subjective: Has hip pain. Objective - Vital Signs/Intake and Output Vital Signs (last 24 hours): Temp Pulse Resp BP Pulse Ox 98 F 53 L 18 131/71 98 10/07/18 16:02 10/07/18 16:02 10/07/18 16:02 10/07/18 16:02 10/07/18 16:02 - Medications Medications: Current Medications Acetaminophen (Tylenol 325mg Tab) 650 mg PO Q6 PRN PRN Reason: Pain, Mild (1-3) Calcium/Vitamin D (Oyster Shell Calcium/Vitamin D 500 Mg-200 Iu) 1 tab PO DAILY [facility] Last Admin: 10/07/18 16:26 Dose: 1 tab Cholecalciferol (Vitamin D) 2,000 intlu PO DAILY [facility] Last Admin: 10/07/18 16:26 Dose: 2,000 intlu Enoxaparin Sodium (Lovenox) 40 mg SC DAILY [facility]; Protocol Last Admin: 10/07/18 18:05 Dose: 40 mg Vancomycin HCl 1 gm/ Sodium (Chloride) 250 mls @ 166.667 mls/hr IVPB Q12 [facility]; Protocol Last Admin: 10/07/18 22:42 Dose: 166.667 mls/hr Cefepime HCl 1 gm/ Sodium (Chloride) 100 mls @ 100 mls/hr IVPB Q12 [facility]; Protocol Last Admin: 10/07/18 21:40 Dose: 100 mls/hr Ketorolac Tromethamine (Toradol) 15 mg IVP Q6 PRN PRN Reason: Pain, moderate (4-7) Last Admin: 10/05/18 11:16 Dose: 15 mg Lorazepam (Ativan) 1 mg IVP ONCE PRN PRN Reason: Agitation prior to MRI Last Admin: 10/05/18 14:02 Dose: 1 mg Methadone HCl (Methadone) 110 mg PO DAILY [facility] Last Admin: 10/07/18 08:52 Dose: 110 mg Oxycodone/Acetaminophen (Percocet 5/325 Mg Tab) 1 tab PO Q6 PRN PRN Reason: Pain, moderate (4-7) Stop: 10/09/18 13:21 Last Admin: 10/07/18 08:53 Dose: 1 tab - Labs Labs: 10/07/18 05:50 10/07/18 05:50 PT 14.0 Seconds (9.8-13.1) H 10/07/18 05:50 INR 1.2 10/07/18 05:50 APTT 38.3 Seconds (25.6-37.1) H 10/07/18 05:50 - Head Exam Head Exam: ATRAUMATIC - Eye Exam Eye Exam: Normal appearance - ENT Exam ENT Exam: Mucous Membranes Dry - Respiratory Exam Respiratory Exam: NORMAL BREATHING PATTERN - Cardiovascular Exam Cardiovascular Exam: +S1, +S2 - GI/Abdominal Exam GI & Abdominal Exam: Normal Bowel Sounds Assessment and Plan (1) Pathological fracture of hip Assessment & Plan: CT C/A/P and bone scan do not suggest malignancy awaiting MRI hip Status: Acute (2) Anemia Assessment & Plan: anemia of chronic disease Status: Acute
[2018-10-08] MEDS: Cholecalciferol 1,000 INTLU TAB PO SCH (08:54)
[2018-10-08] MEDS: Calcium-Vit D 500 mg-200 Units Tab UD PO SCH (08:54)
[2018-10-08] MEDS: Enoxaparin 40 mg Syringe SC SCH (08:54)
[2018-10-08] MEDS: Cefepime 1 GM in Sodium Chloride 0.9% 100 ML IVPB SCH ×2 (09:00→21:05)
[2018-10-08 09:02] LABS: HEMOGLOBIN 11.1 g/dL (12.0-18.0); MEAN CELL VOLUME 81.8 fl (80.0-94.0); MEAN CORPUSCULAR HEMOGLOBIN 25.5 pg (27.0-31.0); MEAN CORPUSCULAR HGB CONC 31.2 g/dL (33.0-37.0); RBC 4.35 Mil/uL (4.40-5.90); RED CELL DISTRIBUTION WIDTH 17.7 % (11.5-14.5); WHITE BLOOD COUNT 7.3 K/uL (4.8-10.8)
[2018-10-08 09:06] LABS: BLOOD UREA NITROGEN 18 mg/dl (9-20); CALCIUM 8.9 mg/dL (8.4-10.2); GFR NON-AFRICAN AMERICAN > 60
[2018-10-08] MEDS: Oxycodone/Acetaminophen 5/325 mg Tab PO PRN (10:10)
--- NOTE | 2018-10-08 10:17 | CP.PCM.PN ---
<Maya Barajas - Last Filed: 10/08/18 11:25> Subjective - Date & Time of Evaluation Date of Evaluation: 10/08/18 Time of Evaluation: 09:15 - Subjective Subjective: Patient seen at bedside this morning, c/o pain on her left hip and thigh. Denies chest pain, SOB, N/V, chills. Objective - Vital Signs/Intake and Output Vital Signs (last 24 hours): Temp Pulse Resp BP Pulse Ox 98.3 F 49 L 19 113/69 97 10/08/18 08:02 10/08/18 08:02 10/08/18 08:02 10/08/18 08:02 10/08/18 08:02 - Medications Medications: Current Medications Acetaminophen (Tylenol 325mg Tab) 650 mg PO Q6 PRN PRN Reason: Pain, Mild (1-3) Calcium/Vitamin D (Oyster Shell Calcium/Vitamin D 500 Mg-200 Iu) 1 tab PO DAILY [facility] Last Admin: 10/08/18 08:54 Dose: 1 tab Cholecalciferol (Vitamin D) 2,000 intlu PO DAILY [facility] Last Admin: 10/08/18 08:54 Dose: 2,000 intlu Docusate Sodium (Colace) 100 mg PO BID [facility] Last Admin: 10/08/18 08:56 Dose: 100 mg Enoxaparin Sodium (Lovenox) 40 mg SC DAILY [facility]; Protocol Last Admin: 10/08/18 08:54 Dose: 40 mg Vancomycin HCl 1 gm/ Sodium (Chloride) 250 mls @ 166.667 mls/hr IVPB Q12 [facility]; Protocol Last Admin: 10/08/18 09:38 Dose: 166.667 mls/hr Cefepime HCl 1 gm/ Sodium (Chloride) 100 mls @ 100 mls/hr IVPB Q12 [facility]; Protocol Last Admin: 10/08/18 09:00 Dose: 100 mls/hr Ketorolac Tromethamine (Toradol) 15 mg IVP Q6 PRN PRN Reason: Pain, moderate (4-7) Last Admin: 10/05/18 11:16 Dose: 15 mg Lorazepam (Ativan) 1 mg IVP ONCE PRN PRN Reason: Agitation prior to MRI Last Admin: 10/05/18 14:02 Dose: 1 mg Methadone HCl (Methadone) 110 mg PO DAILY [facility] Last Admin: 10/08/18 08:53 Dose: 110 mg Oxycodone/Acetaminophen (Percocet 5/325 Mg Tab) 1 tab PO Q6 PRN PRN Reason: Pain, moderate (4-7) Stop: 10/09/18 13:21 Last Admin: 10/08/18 10:10 Dose: 1 tab - Labs Labs: 10/08/18 08:51 10/08/18 08:51 PT 14.0 Seconds (9.8-13.1) H 10/07/18 05:50 INR 1.2 10/07/18 05:50 APTT 38.3 Seconds (25.6-37.1) H 10/07/18 05:50 - Additional Findings Additional findings: - Constitutional Appears: NAD - Head Exam Head Exam: ATRAUMATIC, NORMOCEPHALIC - Eye Exam Eye Exam: EOMI - ENT Exam ENT Exam: Mucous Membranes Moist - Neck Exam Neck Exam: Full ROM - Respiratory Exam Respiratory Exam: Clear to Ausculation Bilateral - Cardiovascular Exam Cardiovascular Exam: RRR, +S1, +S2 - GI/Abdominal Exam GI & Abdominal Exam: Soft, Normal Bowel Sounds. absent: Tenderness - Extremities Exam Extremities Exam: Tenderness. absent: Pedal Edema Additional comments: There is a mild deformity and swelling of the left hip compared to normal appearance of right hip, also Left leg is external rotated. Left hip tenderness to any attempt to ROM - Neurological Exam Neurological Exam: Alert, Awake, Oriented x3 - Psychiatric Exam Psychiatric exam: Normal Affect - Skin Skin Exam: Normal Color, Warm Assessment and Plan - Assessment and Plan (Free Text) Assessment: 53 yo male patient, with PMHx of IV drug use, seen and admitted from ED for L hip/thigh pain of approximately 3 months, Hip/Pelvis X ray howed an extensive destruction of the proximal left femur with pathological fracture, the favored considerations were a lytic destructive neoplasm vs destructive left septic arthrosis, in addition CT Scan showed swrrounding soft tissue swelling including adductor and quadriceps muscle. Bone scan done 10/07 shows uptake in the left hip affecting both proximal femur and acetabulum more consistent to infectious/inflammatory etiology, less likely considerations would be neoplasm. Plan: 1) Left hip/thigh pain - Hip/Pelvis Xray: Proximal L femur with pathological fracture, lytic destructive - CT LLE: Large destructive and infiltrative soft tissue mass lesion involving the left femoral head, neck, and possibly acetabular roof, with pathological fracture -Bone scan done 10/07 shows uptake in the left hip affecting both proximal femur and acetabulum more consistent to infectious/inflammatory etiology, less likely considerations would be neoplasm. - ESR 113, CRP 45.1 - Urine cx, no growth, final - Blood cx, no growth after 24 hrs - Consult ID, per Dr. Mariscal consider primary neoplastic process of proximal L femur - Consult Dr Bray hematology-Recommendation appreciated - C/w Vanco 1gm IVQ12 - C/w maxipeme 1gm IVQ12 - Consult Ortho, Dr. Rodney, recommendation appreciated - LE US negative - Abd and pelvis CT, features does not suggest malignancy. - Plan for MRI pending - C/w pain management 2) IV drug user/Substance use disorder - Urine toxicology: + methadone, + Cannabinoids - Methadone 110mg daily, [employer] contacted ([phone]) on 10/03/18, dose confirmed - HIV-1 Ab Reactive screen- Negative - Hep C + reactive 3) DVT PPX - Lovenox ppx resumed 40 mg SC QD <Fallon Farris - Last Filed: 10/08/18 15:41> Objective - Vital Signs/Intake and Output Vital Signs (last 24 hours): Temp Pulse Resp BP Pulse Ox 98.3 F 49 L 19 113/69 97 10/08/18 08:02 10/08/18 08:02 10/08/18 08:02 10/08/18 08:02 10/08/18 08:02 - Medications Medications: Current Medications Acetaminophen (Tylenol 325mg Tab) 650 mg PO Q6 PRN PRN Reason: Pain, Mild (1-3) Calcium/Vitamin D (Oyster Shell Calcium/Vitamin D 500 Mg-200 Iu) 1 tab PO DAILY [facility] Last Admin: 10/08/18 08:54 Dose: 1 tab Cholecalciferol (Vitamin D) 2,000 intlu PO DAILY [facility] Last Admin: 10/08/18 08:54 Dose: 2,000 intlu Docusate Sodium (Colace) 100 mg PO BID [facility] Last Admin: 10/08/18 08:56 Dose: 100 mg Enoxaparin Sodium (Lovenox) 40 mg SC DAILY [facility]; Protocol Last Admin: 10/08/18 08:54 Dose: 40 mg Vancomycin HCl 1 gm/ Sodium (Chloride) 250 mls @ 166.667 mls/hr IVPB Q12 [facility]; Protocol Last Admin: 10/08/18 09:38 Dose: 166.667 mls/hr Cefepime HCl 1 gm/ Sodium (Chloride) 100 mls @ 100 mls/hr IVPB Q12 [facility]; Protocol Last Admin: 10/08/18 09:00 Dose: 100 mls/hr Methadone HCl (Methadone) 110 mg PO DAILY [facility] Last Admin: 10/08/18 08:53 Dose: 110 mg Oxycodone/Acetaminophen (Percocet 5/325 Mg Tab) 1 tab PO Q6 PRN PRN Reason: Pain, moderate (4-7) Stop: 10/09/18 13:21 Last Admin: 10/08/18 10:10 Dose: 1 tab - Labs Labs: 10/08/18 08:51 10/08/18 08:51 PT 14.0 Seconds (9.8-13.1) H 10/07/18 05:50 INR 1.2 10/07/18 05:50 APTT 38.3 Seconds (25.6-37.1) H 10/07/18 05:50 Attending/Attestation - Attestation I have personally seen and examined this patient.: Yes I have fully participated in the care of the patient.: Yes I have reviewed all pertinent clinical information, including history, physical exam and plan: Yes Notes (Text): 1. Destructive Process Left Hip prob infectious, less likely Malignancy - Bone scan : Uptake in the left hip affecting both proximal femur and acetabulum likely reflects infectious/inflammatory etiology. Less likely consi derations would be neoplasm. - Ortho consulted - Dr Rodney -Oncology eval- Dr Bray consulted - Dr Mariscal on the case - cont IV Vanco and Cefepime ( pt is an IV drug user) - Pain mgt - Pt sedated with Ativan and given Dilaudid - unable to tolerate MRI , will schedule MRI of Hip in am under anesthesia 2. HIV ruled out 3. Hep C + 4. IVDU on Methadone - pt is followed at [facility]
--- NOTE | 2018-10-08 14:45 | CP.PCM.PN ---
Subjective - Date & Time of Evaluation Date of Evaluation: 10/08/18 Time of Evaluation: 14:00 - Subjective Subjective: Patient seen and examined at bedside. Complaining of moderate L hip pain. Was not able to tolerate MRI with Ativan due to hip pain. Patient repeated MRI today with dose of pain meds immediately prior. Able to complete a few series of MRI imaging but not complete. No new complaints. Objective - Vital Signs/Intake and Output Vital Signs (last 24 hours): Temp Pulse Resp BP Pulse Ox 98.3 F 49 L 19 113/69 97 10/08/18 08:02 10/08/18 08:02 10/08/18 08:02 10/08/18 08:02 10/08/18 08:02 - Medications Medications: Current Medications Acetaminophen (Tylenol 325mg Tab) 650 mg PO Q6 PRN PRN Reason: Pain, Mild (1-3) Calcium/Vitamin D (Oyster Shell Calcium/Vitamin D 500 Mg-200 Iu) 1 tab PO DAILY [facility] Last Admin: 10/08/18 08:54 Dose: 1 tab Cholecalciferol (Vitamin D) 2,000 intlu PO DAILY [facility] Last Admin: 10/08/18 08:54 Dose: 2,000 intlu Docusate Sodium (Colace) 100 mg PO BID [facility] Last Admin: 10/08/18 08:56 Dose: 100 mg Enoxaparin Sodium (Lovenox) 40 mg SC DAILY [facility]; Protocol Last Admin: 10/08/18 08:54 Dose: 40 mg Vancomycin HCl 1 gm/ Sodium (Chloride) 250 mls @ 166.667 mls/hr IVPB Q12 [facility]; Protocol Last Admin: 10/08/18 09:38 Dose: 166.667 mls/hr Cefepime HCl 1 gm/ Sodium (Chloride) 100 mls @ 100 mls/hr IVPB Q12 [facility]; Protocol Last Admin: 10/08/18 09:00 Dose: 100 mls/hr Ketorolac Tromethamine (Toradol) 15 mg IVP Q6 PRN PRN Reason: Pain, moderate (4-7) Last Admin: 10/05/18 11:16 Dose: 15 mg Lorazepam (Ativan) 1 mg IVP ONCE PRN PRN Reason: Agitation prior to MRI Last Admin: 10/05/18 14:02 Dose: 1 mg Methadone HCl (Methadone) 110 mg PO DAILY [facility] Last Admin: 10/08/18 08:53 Dose: 110 mg Oxycodone/Acetaminophen (Percocet 5/325 Mg Tab) 1 tab PO Q6 PRN PRN Reason: Pain, moderate (4-7) Stop: 10/09/18 13:21 Last Admin: 10/08/18 10:10 Dose: 1 tab - Labs Labs: 10/08/18 08:51 10/08/18 08:51 PT 14.0 Seconds (9.8-13.1) H 10/07/18 05:50 INR 1.2 10/07/18 05:50 APTT 38.3 Seconds (25.6-37.1) H 10/07/18 05:50 - Extremities Exam Additional comments: L hip: no lesions, no masses +tenderness lateral hip, no groin tenderness sensation intact SP/DP/TN motor intact EHL/FHL/TA/G pedal pulses intact calves soft NT b/l Assessment and Plan (1) Pathological fracture of hip Assessment & Plan: -MRI L hip with sedation tomorrow likely due to incomplete series -can not exclude infection or tumor either at this time, awaiting MRI -PT/OT NWB LLE -pain control -will follow -above d/w Dr. Rodney in agreement Status: Acute
[2018-10-08] MEDS ORDERED: Gadodiamide 287 MG/ML VIAL (15ML) IV ONE (15:21)
--- NOTE | 2018-10-08 21:45 | CP.PCM.PN ---
Subjective - Date & Time of Evaluation Date of Evaluation: 10/08/18 Time of Evaluation: 17:00 - Subjective Subjective: Has hip pain, unable to complete MRI of the hip due to pain. Objective - Vital Signs/Intake and Output Vital Signs (last 24 hours): Temp Pulse Resp BP Pulse Ox 97.9 F 52 L 18 105/69 95 10/08/18 16:30 10/08/18 16:30 10/08/18 16:30 10/08/18 16:30 10/08/18 16:30 - Medications Medications: Current Medications Acetaminophen (Tylenol 325mg Tab) 650 mg PO Q6 PRN PRN Reason: Pain, Mild (1-3) Calcium/Vitamin D (Oyster Shell Calcium/Vitamin D 500 Mg-200 Iu) 1 tab PO DAILY [facility] Last Admin: 10/08/18 08:54 Dose: 1 tab Cholecalciferol (Vitamin D) 2,000 intlu PO DAILY [facility] Last Admin: 10/08/18 08:54 Dose: 2,000 intlu Docusate Sodium (Colace) 100 mg PO BID [facility] Last Admin: 10/08/18 17:16 Dose: 100 mg Methadone HCl (Methadone) 110 mg PO DAILY [facility] Last Admin: 10/08/18 08:53 Dose: 110 mg Oxycodone/Acetaminophen (Percocet 5/325 Mg Tab) 1 tab PO Q6 PRN PRN Reason: Pain, moderate (4-7) Stop: 10/09/18 13:21 Last Admin: 10/08/18 10:10 Dose: 1 tab - Labs Labs: 10/08/18 08:51 10/08/18 08:51 PT 14.0 Seconds (9.8-13.1) H 10/07/18 05:50 INR 1.2 10/07/18 05:50 APTT 38.3 Seconds (25.6-37.1) H 10/07/18 05:50 - Head Exam Head Exam: ATRAUMATIC - Eye Exam Eye Exam: Normal appearance - ENT Exam ENT Exam: Mucous Membranes Dry - Respiratory Exam Respiratory Exam: NORMAL BREATHING PATTERN - Cardiovascular Exam Cardiovascular Exam: +S1, +S2 - GI/Abdominal Exam GI & Abdominal Exam: Normal Bowel Sounds Assessment and Plan (1) Pathological fracture of hip Assessment & Plan: CT C/A/P and bone scan do not suggest malignancy f/u partially completed MRI; may need MRI under anesthesia Status: Acute (2) Anemia Assessment & Plan: anemia of chronic disease Status: Acute
[2018-10-09 06:22] LABS: HEMOGLOBIN 11.5 g/dL (12.0-18.0); MEAN CELL VOLUME 79.5 fl (80.0-94.0); MEAN CORPUSCULAR HEMOGLOBIN 25.3 pg (27.0-31.0); MEAN CORPUSCULAR HGB CONC 31.9 g/dL (33.0-37.0); RBC 4.54 Mil/uL (4.40-5.90); RED CELL DISTRIBUTION WIDTH 17.3 % (11.5-14.5); WHITE BLOOD COUNT 7.2 K/uL (4.8-10.8)
[2018-10-09 06:28] LABS: BLOOD UREA NITROGEN 18 mg/dl (9-20); GFR NON-AFRICAN AMERICAN > 60
[2018-10-09 06:39] LABS: ALBUMIN (PEP) 2.1 g/dL (3.8-4.8); ALPHA-1-GLOBULIN (PEP) 0.5 g/dL (0.2-0.3)
[2018-10-09] MEDS: Cefepime 1 GM in Sodium Chloride 0.9% 100 ML IVPB SCH ×2 (09:19→21:42)
[2018-10-09] MEDS: Calcium-Vit D 500 mg-200 Units Tab UD PO SCH (09:23)
[2018-10-09] MEDS: Cholecalciferol 1,000 INTLU TAB PO SCH (09:24)
[2018-10-09 09:35] LABS: INR 1.2; PROTHROMBIN TIME 13.8 Seconds (9.8-13.1)
[2018-10-09 09:36] LABS: PARTIAL THROMBOPLASTIN TIME 38.3 Seconds (25.6-37.1)
--- NOTE | 2018-10-09 09:45 | CP.PCM.PN ---
Subjective - Date & Time of Evaluation Date of Evaluation: 10/09/18 Time of Evaluation: 09:40 - Subjective Subjective: I D NOTE STILL ATTEMPTING MRI(C IV SEDATION) ORTHOPAEDICS PLANNING SURGERY PENDING ABOVE RESULTS BUT MAY EXPLORE PATIENT CONSIDERING SEVERITY OF FINDINGS CONTINUE IV ANTIBIOTICS Objective - Vital Signs/Intake and Output Vital Signs (last 24 hours): Temp Pulse Resp BP Pulse Ox 98.1 F 51 L 20 116/73 100 10/09/18 08:53 10/09/18 08:53 10/09/18 08:53 10/09/18 08:53 10/09/18 08:53 - Medications Medications: Current Medications Acetaminophen (Tylenol 325mg Tab) 650 mg PO Q6 PRN PRN Reason: Pain, Mild (1-3) Calcium/Vitamin D (Oyster Shell Calcium/Vitamin D 500 Mg-200 Iu) 1 tab PO DAILY [facility] Last Admin: 10/09/18 09:23 Dose: Not Given Cholecalciferol (Vitamin D) 2,000 intlu PO DAILY [facility] Last Admin: 10/09/18 09:24 Dose: Not Given Docusate Sodium (Colace) 100 mg PO BID [facility] Last Admin: 10/09/18 09:23 Dose: Not Given Cefepime HCl 1 gm/ Sodium (Chloride) 100 mls @ 100 mls/hr IVPB Q12 [facility]; Pr otocol Last Admin: 10/09/18 09:19 Dose: 100 mls/hr Vancomycin HCl 1 gm/ Sodium (Chloride) 250 mls @ 166.667 mls/hr IVPB DAILY [facility]; Protocol Methadone HCl (Methadone) 110 mg PO DAILY [facility] Last Admin: 10/09/18 09:23 Dose: Not Given Oxycodone/Acetaminophen (Percocet 5/325 Mg Tab) 1 tab PO Q6 PRN PRN Reason: Pain, moderate (4-7) Stop: 10/09/18 13:21 Last Admin: 10/08/18 10:10 Dose: 1 tab - Labs Labs: 10/09/18 05:45 10/09/18 05:45 PT 13.8 Seconds (9.8-13.1) H 10/09/18 09:10 INR 1.2 10/09/18 09:10 APTT 38.3 Seconds (25.6-37.1) H 10/09/18 09:10
--- NOTE | 2018-10-09 09:48 | CP.PCM.PN ---
Subjective - Date & Time of Evaluation Date of Evaluation: 10/09/18 Time of Evaluation: 09:43 - Subjective Subjective: Patient seen this morning at bedside, c/o moderate pain to the left hip. Patient denies chest pain, SOB, palpitations, cough, chills, nausea or other acute medical compalint at this time. Orthopedics planning surgery possibly today, fis rt will do echocardiography for surgical clearence since patient is no weight bearing and was only using crutches occasionally at home, and patient has h/o IV drug use. Objective - Vital Signs/Intake and Output Vital Signs (last 24 hours): Temp Pulse Resp BP Pulse Ox 98.1 F 51 L 20 116/73 100 10/09/18 08:53 10/09/18 08:53 10/09/18 08:53 10/09/18 08:53 10/09/18 08:53 - Medications Medications: Current Medications Acetaminophen (Tylenol 325mg Tab) 650 mg PO Q6 PRN PRN Reason: Pain, Mild (1-3) Calcium/Vitamin D (Oyster Shell Calcium/Vitamin D 500 Mg-200 Iu) 1 tab PO DAILY [facility] Last Admin: 10/09/18 09:23 Dose: Not Given Cholecalciferol (Vitamin D) 2,000 intlu PO DAILY [facility] Last Admin: 10/09/18 09:24 Dose: Not Given Docusate Sodium (Colace) 100 mg PO BID [facility] Last Admin: 10/09/18 09:23 Dose: Not Given Cefepime HCl 1 gm/ Sodium (Chloride) 100 mls @ 100 mls/hr IVPB Q12 [facility]; Protocol Last Admin: 10/09/18 09:19 Dose: 100 mls/hr Vancomycin HCl 1 gm/ Sodium (Chloride) 250 mls @ 166.667 mls/hr IVPB DAILY [facility]; Protocol Methadone HCl (Methadone) 110 mg PO DAILY [facility] Last Admin: 10/09/18 09:23 Dose: Not Given Oxycodone/Acetaminophen (Percocet 5/325 Mg Tab) 1 tab PO Q6 PRN PRN Reason: Pain, moderate (4-7) Stop: 10/09/18 13:21 Last Admin: 10/08/18 10:10 Dose: 1 tab - Labs Labs: 10/09/18 05:45 10/09/18 05:45 PT 13.8 Seconds (9.8-13.1) H 10/09/18 09:10 INR 1.2 10/09/18 09:10 APTT 38.3 Seconds (25.6-37.1) H 10/09/18 09:10 - Head Exam Head Exam: ATRAUMATIC, NORMOCEPHALIC - Eye Exam Eye Exam: EOMI - ENT Exam ENT Exam: Mucous Membranes Moist - Neck Exam Neck Exam: Full ROM - Respiratory Exam Respiratory Exam: Clear to Ausculation Bilateral. absent: Wheezes - Cardiovascular Exam Cardiovascular Exam: RRR, +S1, +S2 - GI/Abdominal Exam GI & Abdominal Exam: Soft, Normal Bowel Sounds. absent: Tenderness - Extremities Exam Extremities Exam: Tenderness Additional comments: There is a mild deformity and swelling of the left hip compared to normal appearance of right hip, also Left leg is external rotated. Left hip tenderness to any attempt to ROM - Neurological Exam Neurological Exam: Alert, Awake, Oriented x3 - Psychiatric Exam Psychiatric exam: Normal Affect, Normal Mood - Skin Skin Exam: Normal Color, Warm Assessment and Plan - Assessment and Plan (Free Text) Assessment: 53 yo male patient, with PMHx of IV drug use, seen and admitted from ED for L hip/thigh pain of approximately 3 months, Hip/Pelvis X ray showed an extensive destruction of the proximal left femur with pathological fracture, the favored considerations were a lytic destructive neoplasm vs destructive left septic arthrosis, in addition CT Scan showed surrownding soft tissue swelling including adductor and quadriceps muscle. Bone scan done 10/07 shows uptake in the left hip affecting both proximal femur and acetabulum more consistent to infectious/inflammatory etiology, less likely considerations would be neoplasm at this time. Ortho planning to do Ortho surgery today, will proceed to do Echo for completion of clearence since patient is non-ambulatory at this time and is an IV drug user. Plan: 1) Left hip/thigh pain - Hip/Pelvis Xray: Proximal L femur with pathological fracture, lytic destructive - CT LLE: Large destructive and infiltrative soft tissue mass lesion involving the left femoral head, neck, and possibly acetabular roof, with pathological fra cture -Bone scan done 10/07 shows uptake in the left hip affecting both proximal femur and acetabulum more consistent to infectious/inflammatory etiology, less likely considerations would be neoplasm. - ESR 113, CRP 45.1, f/u CRP and ESR - Urine cx, no growth, final - Blood cx, no growth after 24 hrs - Consult ID, per Dr. Mariscal consider primary neoplastic process of proximal L femur - Consult Dr Bray hematology-Recommendation appreciated - C/w Vanco 1gm IVQ12 - C/w maxipeme 1gm IVQ12 - Consult Ortho, Dr. Rodney, recommendation appreciated - LE US negative - Abd and pelvis CT, features does not suggest malignancy. - Plan for MRI is pending, MRI images no completed, might need MRI under anesthesia. - C/w pain management 2) IV drug user/Substance use disorder - Urine toxicology: + methadone, + Cannabinoids - Methadone 110mg daily, [facility] contacted ([phone]) on 10/03/18, dose confirmed - HIV-1 Ab Reactive screen- Negative - Hep C + reactive 3) DVT PPX - Lovenox ppx on hold
--- NOTE | 2018-10-09 12:29 | CP.PCM.CON ---
History of Present Illness - History of Present Illness History of Present Illness: THE PATIENT IS A 53 YEAR OLD MALE WHO IS SCHEDULED TO HAVE LEFT HIP SURGERY AND CARDIOLOGY WAS CALLED TO SEE HIM DUE TO SINUS BRADYCARDIA ON HIS EKG. 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 HE DENIES ANY MEDICAL PROBLEMS AT ALL INCLUDING ANY HEART PROBLEMS OR CHEST PAIN. HE DENIES FEVERS OR CHILLS. Past Patient History - Infectious Disease Hx of Infectious Diseases: None - Past Medical History & Family History Past Medical History?: Yes Past Family History: Reviewed and not pertinent - Past Social History Alcohol: None Drugs: Other (former heroin abuser (injection) ) - CARDIAC Hx Hypertension: No - PULMONARY Hx Respiratory Disorders: No - NEUROLOGICAL Hx Neurological Disorder: No - HEENT Hx HEENT Problems: No - RENAL Hx Chronic Kidney Disease: No - ENDOCRINE/METABOLIC Hx Diabetes Mellitus Type 2: No - HEMATOLOGICAL/ONCOLOGICAL Hx Human Immunodeficiency Virus (HIV): Yes - INTEGUMENTARY Hx Dermatological Problems: No - MUSCULOSKELETAL/RHEUMATOLOGICAL Hx Musculoskeletal Disorders: No Hx Falls: No - GASTROINTESTINAL Hx Gastrointestinal Disorders: No - GENITOURINARY/GYNECOLOGICAL Hx Genitourinary Disorders: No - PSYCHIATRIC Hx Substance Use: Yes - SURGICAL HISTORY Hx Surgeries: No - ANESTHESIA Hx Anesthesia: No Meds Allergies/Adverse Reactions: Allergies Allergy/AdvReac Type Severity Reaction Status Date / Time No Known Allergies Allergy Verified 10/02/18 11:15 - Medications Medications: Current Medications Acetaminophen (Tylenol 325mg Tab) 650 mg PO Q6 PRN PRN Reason: Pain, Mild (1-3) Calcium/Vitamin D (Oyster Shell Calcium/Vitamin D 500 Mg-200 Iu) 1 tab PO DAILY [facility] Last Admin: 10/09/18 09:23 Dose: Not Given Cholecalciferol (Vitamin D) 2,000 intlu PO DAILY [facility] Last Admin: 10/09/18 09:24 Dose: Not Given Docusate Sodium (Colace) 100 mg PO BID [facility] Last Admin: 10/09/18 09:23 Dose: Not Given Cefepime HCl 1 gm/ Sodium (Chloride) 100 mls @ 100 mls/hr IVPB Q12 [facility]; Protocol Last Admin: 10/09/18 09:19 Dose: 100 mls/hr Vancomycin HCl 1 gm/ Sodium (Chloride) 250 mls @ 166.667 mls/hr IVPB DAILY [facility]; Protocol Last Admin: 10/09/18 10:36 Dose: 166.667 mls/hr Methadone HCl (Methadone) 110 mg PO DAILY [facility] Last Admin: 10/09/18 11:33 Dose: 110 mg Oxycodone/Acetaminophen (Percocet 5/325 Mg Tab) 1 tab PO Q6 PRN PRN Reason: Pain, moderate (4-7) Stop: 10/09/18 13:21 Last Admin: 10/08/18 10:10 Dose: 1 tab Physical Exam - Respiratory Exam Respiratory Exam: Clear to Auscultation Bilateral - Cardiovascular Exam Cardiovascular Exam: REGULAR RHYTHM, +S1, +S2 - Extremities Exam Additional comments: NO LE EDEMA - Additional Findings Additional findings: EKG AT REST SINUS BRADYCARDIA, R 50 ECHO GOOD LV FUNCTION, NO VEGETATIONS APPRECIATED BY ME Results - Vital Signs Recent Vital Signs: Last Vital Signs Temp 98.1 F 10/09/18 08:53 Pulse 51 L 10/09/18 08:53 Resp 20 10/09/18 08:53 BP 116/73 10/09/18 08:53 Pulse Ox 100 10/09/18 08:53 - Labs Result Diagrams: 10/09/18 05:45 10/09/18 05:45 Labs: Laboratory Results - last 24 hr 10/07/18 10/08/18 10/08/18 05:50 16:38 22:23 WBC RBC Hgb Hct MCV MCH MCHC RDW Plt Count ESR PT INR APTT Sodium Potassium Chloride Carbon Dioxide Anion Gap BUN Creatinine Est GFR ( Amer) Est GFR (Non-Af Amer) POC Glucose (mg/dL) 68 110 Random Glucose Calcium Albumin (PEP) 2.1 L Pslmq-3-Gjhbmqluf 0.5 H Kylew-6-Xzpjroqad 1.1 H Qkpv-9-Qnqweyzi 0.4 Hdjy-0-Xsaiagfw 0.5 Gamma Globulins 2.1 H Abnorm Protein Band 1 TEST NOT PERFORMED Abnorm Protein Band 2 TEST NOT PERFORMED Abnorm Protein Band 3 TEST NOT PERFORMED ODILON & SPEP Interp See note Serum Immunofixation Not detected Blood Type Blood Type Confirm Antibody Screen Crossmatch BBK History Checked 10/09/18 10/09/18 10/09/18 05:45 05:45 05:51 WBC 7.2 RBC 4.54 Hgb 11.5 L Hct 36.1 MCV 79.5 L D MCH 25.3 L MCHC 31.9 L RDW 17.3 H Plt Count 362 ESR 86 H PT INR APTT Sodium 137 Potassium 4.2 Chloride 102 Carbon Dioxide 30 Anion Gap 9 L BUN 18 Creatinine 0.7 L Est GFR ( Amer) > 60 Est GFR (Non-Af Amer) > 60 POC Glucose (mg/dL) 82 Random Glucose 81 Calcium 9.0 Albumin (PEP) Hllpv-6-Szoaxbyeq Cuawe-3-Evbkcfnhd Coyr-1-Jqpygffb Cuvc-3-Zrzhfyko Gamma Globulins Abnorm Protein Band 1 Abnorm Protein Band 2 Abnorm Protein Band 3 ODILON & SPEP Interp Serum Immunofixation Blood Type Blood Type Confirm Antibody Screen Crossmatch BBK History Checked 10/09/18 10/09/18 10/09/18 06:00 09:10 09:10 WBC RBC Hgb Hct MCV MCH MCHC RDW Plt Count ESR PT 13.8 H INR 1.2 APTT 38.3 H Sodium Potassium Chloride Carbon Dioxide Anion Gap BUN Creatinine Est GFR ( Amer) Est GFR (Non-Af Amer) POC Glucose (mg/dL) Random Glucose Calcium Albumin (PEP) Ropio-0-Ridrqrcit Vjqrt-1-Yewygtgdr Akjd-6-Rvfmxngq Bfee-8-Adsnpido Gamma Globulins Abnorm Protein Band 1 Abnorm Protein Band 2 Abnorm Protein Band 3 ODILON & SPEP Interp Serum Immunofixation Blood Type B POSITIVE Blood Type Confirm B POSITIVE Antibody Screen Negative Crossmatch See Detail BBK History Checked No verified bt 10/09/18 11:15 WBC RBC Hgb Hct MCV MCH MCHC RDW Plt Count ESR PT INR APTT Sodium Potassium Chloride Carbon Dioxide Anion Gap BUN Creatinine Est GFR ( Amer) Est GFR (Non-Af Amer) POC Glucose (mg/dL) 68 Random Glucose Calcium Albumin (PEP) Ufagr-1-Wvtkynsrn Ygyih-3-Lpamvreuu Mkro-0-Zyphcazk Wywd-3-Zbydhjhz Gamma Globulins Abnorm Protein Band 1 Abnorm Protein Band 2 Abnorm Protein Band 3 ODILON & SPEP Interp Serum Immunofixation Blood Type Blood Type Confirm Antibody Screen Crossmatch BBK History Checked Assessment & Plan - Assessment and Plan (Free Text) Assessment: SINUS BRADYCARDIA AT A RATE OF 50 BPM AT REST IS NORMAL STABLE CARDIAC STATUS Plan: THE PATIENT IS CLEARED FOR SURGERY FROM THE CARDIAC VIEWPOINT
[2018-10-09] MEDS ORDERED: Dextrose 50% SYRINGE Inj (50 ml) ONE (12:40)
[2018-10-09] MEDS ORDERED: Dextrose 50% SYRINGE Inj (50 ml) IVP ONE (12:40)
--- NOTE | 2018-10-09 12:48 | CARD ---
APPROVED REPORT Date of service: 10/09/2018 EXAM: Two-dimensional and M-mode echocardiogram with Doppler and color Doppler. Other Information Quality : GoodRhythm : NSR Technically limited study due to Only Sub Xphoid window available INDICATION Pre-Op Fractured lt Hip 2D DIMENSIONS IVSd0.83 (0.7-1.1cm)LVDd5.40 (3.9-5.9cm) LVOT Diameter2.43 (1.8-2.4cm)PWd0.68 (0.7-1.1cm) IVSs1.21 (0.8-1.2cm)LVDs3.59 (2.5-4.0cm) FS (%) 33.6 %PWs1.12 (0.8-1.2cm) M-Mode DIMENSIONS Left Atrium (MM)4.02 (2.5-4.0cm)IVSd1.05 (0.7-1.1cm) Aortic Root3.70 (2.2-3.7cm)LVDd6.60 (4.0-5.6cm) Aortic Cusp Exc.2.58 (1.5-2.0cm)PWd0.98 (0.7-1.1cm) IVSs1.75 cmFS (%) 32 % LVDs4.47 (2.0-3.8cm)PWs1.36 cm Mitral Valve E/A ratio0.0 TDI E/Lateral E'0.0E/Medial E'0.0 LEFT VENTRICLE The left ventricle is normal size. There is normal left ventricular wall thickness. The left ventricular systolic function is normal. The estimated ejection fraction is 55-60% No regional wall motion abnormalities noted.. The left ventricular diastolic function is not assessed. No left ventricle thrombus noted on this study. There is no ventricular septal defect visualized. There is no left ventricular aneurysm. There is no mass noted in the left ventricle. RIGHT VENTRICLE The right ventricle is normal size. There is normal right ventricular wall thickness. The right ventricular systolic function is normal. ATRIA The left atrium size is normal. The right atrium size is normal. The interatrial septum is intact with no evidence for an atrial septal defect. AORTIC VALVE The aortic valve is normal in structure. No aortic regurgitation is present. There is no aortic valvular stenosis. There is no aortic valvular vegetation. MITRAL VALVE The mitral valve is normal in structure. There is no evidence of mitral valve prolapse. There is no mitral valve stenosis. There is no mitral valve regurgitation noted. TRICUSPID VALVE The tricuspid valve is normal in structure. There is trivial tricuspid valve regurgitation noted. There is no tricuspid valve prolapse or vegetation. There is no tricuspid valve stenosis. PULMONIC VALVE The pulmonary valve is normal in structure. There is no pulmonic valvular regurgitation. There is no pulmonic valvular stenosis. GREAT VESSELS The aortic root is normal in size. The ascending aorta is normal in size. The pulmonary artery is normal. The IVC is normal in size and collapses >50% with inspiration. PERICARDIAL EFFUSION There is no pericardial effusion. There is no pleural effusion. <Conclusion> Technically difficult study with limited views The estimated ejection fraction is 55-60% The left ventricular diastolic function is not assessed. The left atrium size is normal. There is trivial tricuspid valve regurgitation noted.
[2018-10-09] MEDS ORDERED: Absorbable Gelatin Sponge Size 12-7 ONE (12:51)
[2018-10-09] MEDS ORDERED: Bacitracin Ointment 30 GM TUBE ONE (12:51)
[2018-10-09] MEDS ORDERED: ceFAZolin IV 1 gm in Dextrose 0 GM/0 ML BAG IVPB ONE (12:52)
[2018-10-09] MEDS ORDERED: Vancomycin 1 g Inj ONE (12:52)
[2018-10-09] MEDS ORDERED: EPINEPHrine 1 mg/ml (1:1000) Inj ONE ×2 (12:55)
--- NOTE | 2018-10-09 13:31 | CP.PCM.PN ---
Subjective - Date & Time of Evaluation Date of Evaluation: 10/09/18 Time of Evaluation: 13:29 - Subjective Subjective: Per Dr. Rodney, patient did not complete MRI workup, likely has 3 month old fracture of left femoral neck, lives in fdc, poor hygiene, and has not been bathed since admission, flaking skin. All of these increase risk of infection f or what is non emergent surgery at this time. OR cancelled. For MRI with conscious sedation with/without contrast. Objective - Vital Signs/Intake and Output Vital Signs (last 24 hours): Temp Pulse Resp BP Pulse Ox 98.1 F 51 L 20 116/73 100 10/09/18 08:53 10/09/18 08:53 10/09/18 08:53 10/09/18 08:53 10/09/18 08:53 - Medications Medications: Current Medications Acetaminophen (Tylenol 325mg Tab) 650 mg PO Q6 PRN PRN Reason: Pain, Mild (1-3) Calcium/Vitamin D (Oyster Shell Calcium/Vitamin D 500 Mg-200 Iu) 1 tab PO DAILY [facility] Last Admin: 10/09/18 09:23 Dose: Not Given Cholecalciferol (Vitamin D) 2,000 intlu PO DAILY [facility] Last Admin: 10/09/18 09:24 Dose: Not Given Docusate Sodium (Colace) 100 mg PO BID [facility] Last Admin: 10/09/18 09:23 Dose: Not Given Cefepime HCl 1 gm/ Sodium (Chloride) 100 mls @ 100 mls/hr IVPB Q12 [facility]; Protocol Last Admin: 10/09/18 09:19 Dose: 100 mls/hr Vancomycin HCl 1 gm/ Sodium (Chloride) 250 mls @ 166.667 mls/hr IVPB DAILY [facility]; Protocol Last Admin: 10/09/18 10:36 Dose: 166.667 mls/hr Methadone HCl (Methadone) 110 mg PO DAILY [facility] Last Admin: 10/09/18 11:33 Dose: 110 mg - Labs Labs: 10/09/18 05:45 10/09/18 05:45 PT 13.8 Seconds (9.8-13.1) H 10/09/18 09:10 INR 1.2 10/09/18 09:10 APTT 38.3 Seconds (25.6-37.1) H 10/09/18 09:10 Assessment and Plan (1) Pathological fracture of hip Assessment & Plan: MRI still pending bone scan states likely infectious/inflammatory etiology, Less likely neoplasm vit D very low Xrays from 08/18/2018 at [facility] demonstrate what is possible a chronic femoral neck fracture at that time. Images are of poor quality, so can not say that it is chronic or acute with certainty, and underlying AVN of femoral head as initial presentation or as sequela of possible fracture also consideration can not exclude infection or tumor either at this time ESR still >80. CRP also elevated case d/w Dr. Rodney, agrees with above will follow up imaging, Surgery cancelled today as per above reasons per Dr. Rodney. Status: Acute (2) Vitamin D deficiency Assessment & Plan: continue supp Status: Acute
[2018-10-09] MEDS ORDERED: Gadodiamide 287 MG/ML VIAL (15ML) IV ONE (13:44)
[2018-10-09] MEDS ORDERED: Midazolam 2 MG/2 ML VIAL ONE (13:51)
[2018-10-09] MEDS ORDERED: Propofol 10 mg/ml Inj (20 ML) ONE (13:51)
[2018-10-09] MEDS ORDERED: Lactated Ringer's 500 ML IV ONE (15:30)
[2018-10-09] MEDS ORDERED: HYDROmorphone 0.5 mg/0.5 ml ISec IVP PRN (15:40)
[2018-10-09] MEDS ORDERED: Dexamethasone 4 mg/1 ml IVP PRN (15:40)
[2018-10-09] MEDS: Oxycodone/Acetaminophen 5/325 mg Tab PO PRN (17:07)
[2018-10-09] MEDS: Lactated Ringer's 1,000 ML IV SCH ×2 (17:10→23:45)
[2018-10-09] MEDS ORDERED: Oxycodone/Acetaminophen 5/325 mg Tab PO PRN (17:11)
--- NOTE | 2018-10-09 22:52 | CP.PCM.PN ---
Subjective - Date & Time of Evaluation Date of Evaluation: 10/09/18 Time of Evaluation: 14:00 - Subjective Subjective: Has hip pain, OR canceled Objective - Vital Signs/Intake and Output Vital Signs (last 24 hours): Temp Pulse Resp BP Pulse Ox 97.4 F L 60 18 95/51 L 96 10/09/18 17:17 10/09/18 17:17 10/09/18 17:17 10/09/18 17:17 10/09/18 17:17 Intake and Output: 10/09/18 10/10/18 18:59 06:59 Intake Total 50 Balance 50 - Medications Medications: Current Medications Acetaminophen (Tylenol 325mg Tab) 650 mg PO Q6 PRN PRN Reason: Pain, Mild (1-3) Calcium/Vitamin D (Oyster Shell Calcium/Vitamin D 500 Mg-200 Iu) 1 tab PO DAILY [facility] Last Admin: 10/09/18 09:23 Dose: Not Given Cholecalciferol (Vitamin D) 2,000 intlu PO DAILY [facility] Last Admin: 10/09/18 09:24 Dose: Not Given Docusate Sodium (Colace) 100 mg PO BID [facility] Last Admin: 10/09/18 16:58 Dose: 100 mg Cefepime HCl 1 gm/ Sodium (Chloride) 100 mls @ 100 mls/hr IVPB Q12 [facility]; Protocol Last Admin: 10/09/18 21:42 Dose: 100 mls/hr Vancomycin HCl 1 gm/ Sodium (Chloride) 250 mls @ 166.667 mls/hr IVPB DAILY [facility]; Protocol Last Admin: 10/09/18 10:36 Dose: 166.667 mls/hr Lactated Ringer's (Lactated Ringer's) 1,000 mls @ 125 mls/hr IV .Q8H [facility] Last Admin: 10/09/18 17:10 Dose: Not Given Methadone HCl (Methadone) 110 mg PO DAILY [facility] Last Admin: 10/09/18 11:33 Dose: 110 mg Oxycodone/Acetaminophen (Percocet 5/325 Mg Tab) 1 tab PO Q6 PRN PRN Reason: Pain, severe (8-10) Stop: 10/12/18 17:12 - Labs Labs: 10/09/18 05:45 10/09/18 05:45 PT 13.8 Seconds (9.8-13.1) H 10/09/18 09:10 INR 1.2 10/09/18 09:10 APTT 38.3 Seconds (25.6-37.1) H 10/09/18 09:10 - Head Exam Head Exam: ATRAUMATIC - Eye Exam Eye Exam: Normal appearance - ENT Exam ENT Exam: Mucous Membranes Dry - Respiratory Exam Respiratory Exam: NORMAL BREATHING PATTERN - Cardiovascular Exam Cardiovascular Exam: +S1, +S2 - GI/Abdominal Exam GI & Abdominal Exam: Normal Bowel Sounds Assessment and Plan (1) Pathological fracture of hip Assessment & Plan: CT C/A/P and bone scan do not suggest malignancy f/u partially completed MRI; may need MRI under sedation Status: Acute (2) Anemia Assessment & Plan: anemia of chronic disease Status: Acute
[2018-10-10] MEDS: Oxycodone/Acetaminophen 5/325 mg Tab PO PRN ×3 (05:55→21:48)
[2018-10-10 06:45] LABS: HEMOGLOBIN 12.3 g/dL (12.0-18.0); MEAN CELL VOLUME 80.4 fl (80.0-94.0); MEAN CORPUSCULAR HGB CONC 32.3 g/dL (33.0-37.0); RBC 4.72 Mil/uL (4.40-5.90); RED CELL DISTRIBUTION WIDTH 18.1 % (11.5-14.5); WHITE BLOOD COUNT 6.1 K/uL (4.8-10.8)
[2018-10-10 07:06] LABS: BLOOD UREA NITROGEN 20 mg/dl (9-20); CALCIUM 8.8 mg/dL (8.4-10.2); GFR NON-AFRICAN AMERICAN > 60
[2018-10-10] MEDS: Cholecalciferol 1,000 INTLU TAB PO SCH (07:59)
[2018-10-10] MEDS ORDERED: Sod Polystyrene Sulf 15 gm/60 ml Susp PO ONE (08:27)
[2018-10-10] MEDS ORDERED: Albuterol 0.083% Inhal Sol (2.5 mg/3 mL) UD INH STA (08:28)
[2018-10-10] MEDS ORDERED: Calcium Gluconate 4.65 mEq/10 ml Inj IV ONE (08:29)
[2018-10-10] MEDS: Calcium-Vit D 500 mg-200 Units Tab UD PO SCH (08:39)
[2018-10-10] MEDS: Cefepime 1 GM in Sodium Chloride 0.9% 100 ML IVPB SCH ×2 (08:39→21:26)
[2018-10-10] MEDS ORDERED: Calcium Gluconate 4.6 MEQ in Sodium Chloride 0.9% 100 ML IV ONE (08:45)
--- NOTE | 2018-10-10 09:10 | CP.PCM.PN ---
Subjective - Date & Time of Evaluation Date of Evaluation: 10/10/18 Time of Evaluation: 09:03 - Subjective Subjective: Patient seen today at bedside, c/o mild left hip at this time, patient is aware of Ortho surgery plans today. Denies chest pain, SOB, palpitations, cough, abdominal pain, nausea, or other acute medical complaint at this time of encounter. Objective - Vital Signs/Intake and Output Vital Signs (last 24 hours): Temp Pulse Resp BP Pulse Ox 98.3 F 53 L 20 112/69 97 10/10/18 08:43 10/10/18 08:43 10/10/18 08:43 10/10/18 08:43 10/10/18 08:43 - Medications Medications: Current Medications Acetaminophen (Tylenol 325mg Tab) 650 mg PO Q6 PRN PRN Reason: Pain, Mild (1-3) Calcium/Vitamin D (Oyster Shell Calcium/Vitamin D 500 Mg-200 Iu) 1 tab PO DAILY [facility] Last Admin: 10/10/18 08:39 Dose: Not Given Cholecalciferol (Vitamin D) 2,000 intlu PO DAILY [facility] Last Admin: 10/10/18 07:59 Dose: Not Given Docusate Sodium (Colace) 100 mg PO BID [facility] Last Admin: 10/10/18 07:59 Dose: Not Given Cefepime HCl 1 gm/ Sodium (Chloride) 100 mls @ 100 mls/hr IVPB Q12 [facility]; Protocol Last Admin: 10/10/18 08:39 Dose: 100 mls/hr Vancomycin HCl 1 gm/ Sodium (Chloride) 250 mls @ 166.667 mls/hr IVPB DAILY [facility]; Protocol Last Admin: 10/10/18 08:39 Dose: 166.667 mls/hr Calcium Gluconate 4.6 meq/ (Sodium Chloride) 109.8924 mls @ 109.892 mls/hr IV ONCE ONE Stop: 10/10/18 09:44 Methadone HCl (Methadone) 110 mg PO DAILY [facility] Last Admin: 10/10/18 07:59 Dose: Not Given Oxycodone/Acetaminophen (Percocet 5/325 Mg Tab) 1 tab PO Q6 PRN PRN Reason: Pain, severe (8-10) Stop: 10/12/18 17:12 Last Admin: 10/10/18 05:55 Dose: 1 tab - Labs Labs: 10/10/18 05:50 10/10/18 05:50 PT 13.8 Seconds (9.8-13.1) H 10/09/18 09:10 INR 1.2 10/09/18 09:10 APTT 38.3 Seconds (25.6-37.1) H 10/09/18 09:10 - Additional Findings Additional findings: - Head Exam Head Exam: ATRAUMATIC, NORMOCEPHALIC - Eye Exam Eye Exam: EOMI - ENT Exam ENT Exam: Mucous Membranes Moist - Neck Exam Neck Exam: Full ROM - Respiratory Exam Respiratory Exam: Clear to Ausculation Bilateral. absent: Wheezes - Cardiovascular Exam Cardiovascular Exam: RRR, +S1, +S2 - GI/Abdominal Exam GI & Abdominal Exam: Soft, Normal Bowel Sounds. absent: Tenderness - Extremities Exam Extremities Exam: Tenderness Additional comments: There is deformity and swelling of the left hip compared to normal appearance of right hip, also Left leg is external rotated. Left hip tenderness to any attempt to ROM - Neurological Exam Neurological Exam: Alert, Awake, Oriented x3 - Psychiatric Exam Psychiatric exam: Normal Affect, Normal Mood - Skin Skin Exam: Normal Color, Warm Assessment and Plan - Assessment and Plan (Free Text) Assessment: 53 yo male patient, with PMHx of IV drug use, seen and admitted from ED for L hip/thigh pain of approximately 3 months, Hip/Pelvis X ray showed an extensive destruction of the proximal left femur with pathological fracture, the favored considerations were a lytic destructive neoplasm vs destructive left septic arthrosis, in addition CT Scan showed surrownding soft tissue swelling including adductor and quadriceps muscle. Bone scan done 10/07 shows uptake in the left hip affecting both proximal femur and acetabulum more consistent to infectious/inflammatory etiology vs less likely consideration would be neoplasm. MRI of left hip done yesterday pending results report. Plans for Ortho surgery today, Echo done showed no vegetations, estimated EF 55%, patient is cleared for surgery by cardilogy. Plan: 1) Left hip/thigh pain - Hip/Pelvis Xray: Proximal L femur with pathological fracture, lytic destructive - CT LLE: Large destructive and infiltrative soft tissue mass lesion involving the left femoral head, neck, and possibly acetabular roof, with pathological fracture -Bone scan done 10/07 shows uptake in the left hip affecting both proximal femur and acetabulum more consistent to infectious/inflammatory etiology, less likely considerations would be neoplasm. - ESR 94, CRP 45.1, f/u CRP - Urine cx, no growth, final - Blood cx, no growth after 24 hrs - Consult ID, per Dr. Mariscal-Recommendation appreciated - Consult Dr Bray hematology-Recommendation appreciated - C/w Vanco 1gm IVQ12 - C/w maxipeme 1gm IVQ12 - Consult Ortho, Dr. Rodney, recommendation appreciated - LE US negative - Abd and pelvis CT, features does not suggest malignancy. - MRI of left hip done 10/09, pending results - C/w pain management 2)IV drug user/Substance use disorder - Urine toxicology: + methadone, + Cannabinoids - Methadone 110mg daily, [facility] contacted ([phone]) on 10/03/18, dose confirmed - HIV-1 Ab Reactive screen- Negative - Hep C + reactive DVT PPX - Lovenox ppx on hold
[2018-10-10] MEDS: Lactated Ringer's 1,000 ML IV SCH (09:19)
--- NOTE | 2018-10-10 10:28 | CP.PCM.PN ---
Subjective - Date & Time of Evaluation Date of Evaluation: 10/09/18 Time of Evaluation: 12:30 - Subjective Subjective: S- pt comfortable- somewhat inappropriate at time of encounter; pt has resfused any washing during hospital stay when questioned when this freacture occurred pt states at least 3-4 months. pt has quetsion imvolvement of skin bugs, and compormise of skin and discoloration in are of hip[; pt refusing attempts to clean the skin, and he is literalloyFILTHY(EXTRMELY HIGH PROBABILITY OF INFECTION) STILL UNCLEAR IF hip has a low grade infection PT WAS NON COMPLIANT WITH ATTEMPT AT mri EVAL Objective - Vital Signs/Intake and Output Vital Signs (last 24 hours): Temp Pulse Resp BP Pulse Ox 98.3 F 53 L 20 112/69 97 10/10/18 08:43 10/10/18 08:43 10/10/18 08:43 10/10/18 08:43 10/10/18 08:43 - Medications Medications: Current Medications Acetaminophen (Tylenol 325mg Tab) 650 mg PO Q6 PRN PRN Reason: Pain, Mild (1-3) Calcium/Vitamin D (Oyster Shell Calcium/Vitamin D 500 Mg-200 Iu) 1 tab PO DAILY [facility] Last Admin: 10/10/18 08:39 Dose: Not Given Cholecalciferol (Vitamin D) 2,000 intlu PO DAILY [facility] Last Admin: 10/10/18 07:59 Dose: Not Given Docusate Sodium (Colace) 100 mg PO BID [facility] Last Admin: 10/10/18 07:59 Dose: Not Given Cefepime HCl 1 gm/ Sodium (Chloride) 100 mls @ 100 mls/hr IVPB Q12 [facility]; Protocol Last Admin: 10/10/18 08:39 Dose: 100 mls/hr Vancomycin HCl 1 gm/ Sodium (Chloride) 250 mls @ 166.667 mls/hr IVPB DAILY [facility]; Protocol Last Admin: 10/10/18 08:39 Dose: 166.667 mls/hr Methadone HCl (Methadone) 110 mg PO DAILY [facility] Last Admin: 10/10/18 07:59 Dose: Not Given Oxycodone/Acetaminophen (Percocet 5/325 Mg Tab) 1 tab PO Q6 PRN PRN Reason: Pain, severe (8-10) Stop: 10/12/18 17:12 Last Admin: 10/10/18 05:55 Dose: 1 tab - Labs Labs: 10/10/18 05:50 10/10/18 05:50 PT 13.8 Seconds (9.8-13.1) H 10/09/18 09:10 INR 1.2 10/09/18 09:10 APTT 38.3 Seconds (25.6-37.1) H 10/09/18 09:10 - Additional Findings Additional findings: sYSTEMPT HAS STUIGMATA OF CHRONIC DRUG ABUSE, and hjas lived on street for long period of time fracture occureed "at least 3-4 months ago" according to the pt sytemic exam could not be carried out extensively secondaRY TO PTS EXTREMELY POOR HABITUS,AND dirt nad possibloe sawyer infestation wityh bugs, certainly with bacteria muSCULOSKEKLTAL minimal external rotation, some shortening lower extremity pt has been walking on thew limb, both with and withoug ambulation aids N/V intact Objective mri REFUSED, COULD NOT BE REPEATED; ALTHOUGJH PT HAS NO GROSS EVIDENCE OFR INFECTION, THIS cannot be ruled out withopu the completeion of diagnostic testing Bone scan Xrays noted Assessment and Plan - Assessment and Plan (Free Text) Assessment: A_ suncapital L femur fracture CHRONIC AT LEAST 4-6 MONTHS IN DURATION PT WITH EXTREMELY HIGH RISK FOR INFECTRION BECAUSE OF HIS TERRIBLE PERSONAL CLEANLINESS,AND POSASIBILOITY OF BUGS, CERTAILY BACTYERI FROM THE CHRONIC DIRT FROM LIFESTYLE p- IV ABIOS FOR 6WKS PRIOR TO ANY SURGICAL INTERVGENTION although there is no sign ofg acute active infection, and since the fracture is chronic, to be operating on it at this juncture would be exposing the pt to infection Risk not now acceptable.. Further, with pts lifestyle the probabbility of chronic instabiloity dislocation goes way up, secondary to his lifestyle and substance abus P- NO SURGICAL INTERVENTION AT THIS POIT; IV abios and if lifestyle stabilizes and he literally CLEANS UP HIds act AND PERSONAL HYGIENE, REPLACEMENT ARTHRIOPLASTY can bew conasidered at that point
--- NOTE | 2018-10-10 11:11 | CP.PCM.PN ---
Subjective - Date & Time of Evaluation Date of Evaluation: 10/10/18 Time of Evaluation: 10:00 - Subjective Subjective: NO CHEST PAIN OR SOB Objective - Vital Signs/Intake and Output Vital Signs (last 24 hours): Temp Pulse Resp BP Pulse Ox 98.3 F 53 L 20 112/69 97 10/10/18 08:43 10/10/18 08:43 10/10/18 08:43 10/10/18 08:43 10/10/18 08:43 - Medications Medications: Current Medications Acetaminophen (Tylenol 325mg Tab) 650 mg PO Q6 PRN PRN Reason: Pain, Mild (1-3) Calcium/Vitamin D (Oyster Shell Calcium/Vitamin D 500 Mg-200 Iu) 1 tab PO DAILY [facility] Last Admin: 10/10/18 08:39 Dose: Not Given Cholecalciferol (Vitamin D) 2,000 intlu PO DAILY [facility] Last Admin: 10/10/18 07:59 Dose: Not Given Docusate Sodium (Colace) 100 mg PO BID [facility] Last Admin: 10/10/18 07:59 Dose: Not Given Cefepime HCl 1 gm/ Sodium (Chloride) 100 mls @ 100 mls/hr IVPB Q12 [facility]; Protocol Last Admin: 10/10/18 08:39 Dose: 100 mls/hr Vancomycin HCl 1 gm/ Sodium (Chloride) 250 mls @ 166.667 mls/hr IVPB DAILY [facility]; Protocol Last Admin: 10/10/18 08:39 Dose: 166.667 mls/hr Methadone HCl (Methadone) 110 mg PO DAILY [facility] Last Admin: 10/10/18 07:59 Dose: Not Given Oxycodone/Acetaminophen (Percocet 5/325 Mg Tab) 1 tab PO Q6 PRN PRN Reason: Pain, severe (8-10) Stop: 10/12/18 17:12 Last Admin: 10/10/18 05:55 Dose: 1 tab - Labs Labs: 10/10/18 05:50 10/10/18 05:50 PT 13.8 Seconds (9.8-13.1) H 10/09/18 09:10 INR 1.2 10/09/18 09:10 APTT 38.3 Seconds (25.6-37.1) H 10/09/18 09:10 - Respiratory Exam Respiratory Exam: Clear to Ausculation Bilateral - Cardiovascular Exam Cardiovascular Exam: REGULAR RHYTHM, +S1, +S2 - Extremities Exam Additional comments: NO LE EDEMA - Additional Findings Additional findings: DR REILLY'S NOTE REVIEWED Assessment and Plan - Assessment and Plan (Free Text) Assessment: LEFT HIP FRACTURE POOR PERSONAL HYGEINE AND RESISTANCE TO CLEANING UP Plan: NO SURGICAL INTERVENTION AT THIS TIME PER DR REILLY DUE TO HIGH RISK OF INFECTION AND PATIENT WILL BE ON ANTIBIOTICS
[2018-10-10 11:15] LABS: BLOOD UREA NITROGEN 18 mg/dl (9-20); CALCIUM 9.1 mg/dL (8.4-10.2); GFR NON-AFRICAN AMERICAN > 60
--- NOTE | 2018-10-10 12:37 | MRI ---
MRI left hip HISTORY: Deformity. Evaluate for tumor and infection. Comparison: CT scan dated 10/02/2018 Technique: Multi-echo multiplanar sequences were performed through the left hip without and with the use of intravenous contrast. Findings: Again identified is complete bony destruction of the left femoral head and neck with displacement of the femoral shaft superiorly and laterally. At the level of the destroyed femoral head and neck, there is extensive soft tissue signal abnormality with decreased T1 signal, increased STIR signal, and some patchy post-contrast enhancement. In addition, in correlation with the CT scan there is surrounding proliferative and or heterotopic bone formation. Adjacent extensive signal abnormality is noted within the corresponding bony acetabulum with prominent cyst formation and exuberant edema measuring up to 2.7 and 1.9 centimeters respectively at its anterior and posterior aspects as well as extensive edema and decreased T1 signal. In addition, there is associated enhancement of the joint fluid at the level of the left hip joint space. These findings are of uncertain clinical etiology. They may represent the sequelae of underlying neoplasm with associated osseous destruction of the left proximal femur as well as associated proliferative new bone formation and soft tissue infiltration. Alternatively, this may represent the sequelae of a chronically infected joint with complete destruction of the proximal femur. Additional considerations may represent the sequelae of acute inflammatory changes secondary to a neuropathic joint versus sequelae of posttraumatic changes and osteonecrosis versus additional etiology. Further evaluation with joint aspiration and bone biopsy is recommended to better delineate the differential diagnosis. Extensive edema within the adjacent musculature. Limited evaluation of the remainder of the bony pelvis demonstrates some scattered areas of reactive bone marrow edema within the right proximal femur particularly at the level of the femoral neck, nonspecific. Clinical correlation. Impression: Again identified is complete bony destruction of the left femoral head and neck with displacement of the femoral shaft superiorly and laterally. At the level of the destroyed femoral head and neck, there is extensive soft tissue signal abnormality with decreased T1 signal, increased STIR signal, and some patchy post-contrast enhancement. In addition, in correlation with the CT scan there is surrounding proliferative and or heterotopic bone formation. Adjacent extensive signal abnormality is noted within the corresponding bony acetabulum with prominent cyst formation and exuberant edema measuring up to 2.7 and 1.9 centimeters respectively at its anterior and posterior aspects as well as extensive edema and decreased T1 signal. In addition, there is associated enhancement of the joint fluid at the level of the left hip joint space. These findings are of uncertain clinical etiology. They may represent the sequelae of underlying neoplasm with associated osseous destruction of the left proximal femur as well as associated proliferative new bone formation and soft tissue infiltration. Alternatively, this may represent the sequelae of a chronically infected joint with complete destruction of the proximal femur. Additional considerations may represent the sequelae of acute inflammatory changes secondary to a neuropathic joint versus sequelae of posttraumatic changes and osteonecrosis versus additional etiology. Clinical correlation. Further evaluation with joint aspiration and bone biopsy may be helpful to better delineate the differential diagnosis if clinically indicated. Extensive edema within the adjacent musculature. Limited evaluation of the remainder of the bony pelvis demonstrates some scattered areas of reactive bone marrow edema within the right proximal femur particularly at the level of the femoral neck, nonspecific. Clinical correlation.
--- NOTE | 2018-10-10 14:44 | CP.PCM.PN ---
Subjective - Date & Time of Evaluation Date of Evaluation: 10/10/18 Time of Evaluation: 07:30 - Subjective Subjective: Patient seen and examined at bedside. Pain is moderate to L hip. Poor hygiene for several months. MRI with sedation done yesterday. Objective - Vital Signs/Intake and Output Vital Signs (last 24 hours): Temp Pulse Resp BP Pulse Ox 98.3 F 53 L 20 112/69 97 10/10/18 08:43 10/10/18 08:43 10/10/18 08:43 10/10/18 08:43 10/10/18 08:43 - Medications Medications: Current Medications Acetaminophen (Tylenol 325mg Tab) 650 mg PO Q6 PRN PRN Reason: Pain, Mild (1-3) Calcium/Vitamin D (Oyster Shell Calcium/Vitamin D 500 Mg-200 Iu) 1 tab PO DAILY [facility] Last Admin: 10/10/18 08:39 Dose: Not Given Cholecalciferol (Vitamin D) 2,000 intlu PO DAILY [facility] Last Admin: 10/10/18 07:59 Dose: Not Given Docusate Sodium (Colace) 100 mg PO BID [facility] Last Admin: 10/10/18 07:59 Dose: Not Given Cefepime HCl 1 gm/ Sodium (Chloride) 100 mls @ 100 mls/hr IVPB Q12 [facility]; Protocol Last Admin: 10/10/18 08:39 Dose: 100 mls/hr Vancomycin HCl 1 gm/ Sodium (Chloride) 250 mls @ 166.667 mls/hr IVPB DAILY [facility]; Protocol Last Admin: 10/10/18 08:39 Dose: 166.667 mls/hr Methadone HCl (Methadone) 110 mg PO DAILY [facility] Last Admin: 10/10/18 11:33 Dose: 110 mg Oxycodone/Acetaminophen (Percocet 5/325 Mg Tab) 1 tab PO Q6 PRN PRN Reason: Pain, severe (8-10) Stop: 10/12/18 17:12 Last Admin: 10/10/18 14:37 Dose: 1 tab - Labs Labs: 10/10/18 05:50 10/10/18 10:59 PT 13.8 Seconds (9.8-13.1) H 10/09/18 09:10 INR 1.2 10/09/18 09:10 APTT 38.3 Seconds (25.6-37.1) H 10/09/18 09:10 - Constitutional Appears: Unkempt - Extremities Exam Additional comments: L hip: no lesions, no masses +tenderness lateral hip, no groin tenderness sensation intact SP/DP/TN motor intact EHL/FHL/TA/G pedal pulses intact calves soft NT b/l Assessment and Plan (1) Pathological fracture of hip Assessment & Plan: Patient not surgical candidate at this time due to high risk of infection. Patient has poor hygiene and has history of drug abuse. -PT/OT NWB LLE -pain control -recommend 6 weeks of IV abx prior to elective L ELIJAH -above d/w Dr. Rodney in agreement Status: Acute
--- NOTE | 2018-10-10 16:27 | CP.PCM.PN ---
Subjective - Date & Time of Evaluation Date of Evaluation: 10/10/18 Time of Evaluation: 12:00 - Subjective Subjective: Has hip pain. Objective - Vital Signs/Intake and Output Vital Signs (last 24 hours): Temp Pulse Resp BP Pulse Ox 98 F 56 L 18 102/61 98 10/10/18 16:03 10/10/18 16:03 10/10/18 16:03 10/10/18 16:03 10/10/18 16:03 - Medications Medications: Current Medications Acetaminophen (Tylenol 325mg Tab) 650 mg PO Q6 PRN PRN Reason: Pain, Mild (1-3) Calcium/Vitamin D (Oyster Shell Calcium/Vitamin D 500 Mg-200 Iu) 1 tab PO DAILY [facility] Last Admin: 10/10/18 08:39 Dose: Not Given Cholecalciferol (Vitamin D) 2,000 intlu PO DAILY [facility] Last Admin: 10/10/18 07:59 Dose: Not Given Docusate Sodium (Colace) 100 mg PO BID [facility] Last Admin: 10/10/18 16:20 Dose: 100 mg Cefepime HCl 1 gm/ Sodium (Chloride) 100 mls @ 100 mls/hr IVPB Q12 [facility]; Protocol Last Admin: 10/10/18 08:39 Dose: 100 mls/hr Vancomycin HCl 1 gm/ Sodium (Chloride) 250 mls @ 166.667 mls/hr IVPB DAILY [facility]; Protocol Last Admin: 10/10/18 08:39 Dose: 166.667 mls/hr Methadone HCl (Methadone) 110 mg PO DAILY [facility] Last Admin: 10/10/18 11:33 Dose: 110 mg Oxycodone/Acetaminophen (Percocet 5/325 Mg Tab) 1 tab PO Q6 PRN PRN Reason: Pain, severe (8-10) Stop: 10/12/18 17:12 Last Admin: 10/10/18 14:37 Dose: 1 tab - Labs Labs: 10/10/18 05:50 10/10/18 10:59 PT 13.8 Seconds (9.8-13.1) H 10/09/18 09:10 INR 1.2 10/09/18 09:10 APTT 38.3 Seconds (25.6-37.1) H 10/09/18 09:10 - Head Exam Head Exam: ATRAUMATIC - Eye Exam Eye Exam: Normal appearance - ENT Exam ENT Exam: Mucous Membranes Dry - Respiratory Exam Respiratory Exam: NORMAL BREATHING PATTERN - Cardiovascular Exam Cardiovascular Exam: +S1, +S2 - GI/Abdominal Exam GI & Abdominal Exam: Normal Bowel Sounds Assessment and Plan (1) Pathological fracture of hip Assessment & Plan: imaging reviewed suspect chronic infection etiology Status: Acute (2) Anemia Assessment & Plan: anemia of chronic disease Status: Acute
--- NOTE | 2018-10-10 17:14 | RAD ---
Date of service: 10/10/2018 HISTORY: PICC Insertion COMPARISON: 10/03/2018 FINDINGS: LUNGS: No active pulmonary disease. PLEURA: No significant pleural effusion identified, no pneumothorax apparent. CARDIOVASCULAR: No atherosclerotic calcification present Tip of the PICC line is in the SVC approximately 6 cm from the cavoatrial junction. OSSEOUS STRUCTURES: No significant abnormalities. VISUALIZED UPPER ABDOMEN: Normal. OTHER FINDINGS: None. IMPRESSION: Satisfactory position of recently placed PICC line. No pneumothorax or other adverse findings noted.
[2018-10-10 23:40] VITALS: O2SAT 99
[2018-10-11 08:18] VITALS: BP 110/68; PULSE 55; RESP 18; TEMP 97.8
[2018-10-11] MEDS: Cefepime 1 GM in Sodium Chloride 0.9% 100 ML IVPB SCH (08:36)
[2018-10-11] MEDS: Calcium-Vit D 500 mg-200 Units Tab UD PO SCH (08:37)
[2018-10-11] MEDS: Cholecalciferol 1,000 INTLU TAB PO SCH (08:37)
[2018-10-11] MEDS: Oxycodone/Acetaminophen 5/325 mg Tab PO PRN ×2 (09:37→16:16)
--- NOTE | 2018-10-11 10:53 | CP.PCM.PN ---
<Mile VarmaRich - Last Filed: 10/11/18 11:55> Objective - Vital Signs/Intake and Output Vital Signs (last 24 hours): Temp Pulse Resp BP Pulse Ox 97.8 F 55 L 18 110/68 99 10/11/18 08:17 10/11/18 08:17 10/11/18 08:17 10/11/18 08:17 10/11/18 08:17 - Medications Medications: Current Medications Acetaminophen (Tylenol 325mg Tab) 650 mg PO Q6 PRN PRN Reason: Pain, Mild (1-3) Calcium/Vitamin D (Oyster Shell Calcium/Vitamin D 500 Mg-200 Iu) 1 tab PO DAILY [facility] Last Admin: 10/11/18 08:37 Dose: 1 tab Cholecalciferol (Vitamin D) 2,000 intlu PO DAILY [facility] Last Admin: 10/11/18 08:37 Dose: 2,000 intlu Docusate Sodium (Colace) 100 mg PO BID [facility] Last Admin: 10/11/18 08:37 Dose: 100 mg Cefepime HCl 1 gm/ Sodium (Chloride) 100 mls @ 100 mls/hr IVPB Q12 [facility]; Protocol Last Admin: 10/11/18 08:36 Dose: 100 mls/hr Vancomycin HCl 1 gm/ Sodium (Chloride) 250 mls @ 166.667 mls/hr IVPB DAILY [facility]; Protocol Last Admin: 10/11/18 08:36 Dose: 166.667 mls/hr Methadone HCl (Methadone) 110 mg PO DAILY [facility] Last Admin: 10/11/18 08:34 Dose: 110 mg Oxycodone/Acetaminophen (Percocet 5/325 Mg Tab) 1 tab PO Q6 PRN PRN Reason: Pain, severe (8-10) Stop: 10/12/18 17:12 Last Admin: 10/11/18 09:37 Dose: 1 tab - Labs Labs: 10/10/18 05:50 10/10/18 10:59 PT 13.8 Seconds (9.8-13.1) H 10/09/18 09:10 INR 1.2 10/09/18 09:10 APTT 38.3 Seconds (25.6-37.1) H 10/09/18 09:10 <Wade Mixon - Last Filed: 10/14/18 10:42> Subjective - Date & Time of Evaluation Date of Evaluation: 10/11/18 Time of Evaluation: 10:30 - Subjective Subjective: NO CHEST PAIN OR SOB Objective - Vital Signs/Intake and Output Vital Signs (last 24 hours): Temp Pulse Resp BP Pulse Ox 97.8 F 55 L 18 110/68 99 10/11/18 08:17 10/11/18 08:17 10/11/18 08:17 10/11/18 08:17 10/11/18 08:17 - Medications Medications: Current Medications Acetaminophen (Tylenol 325mg Tab) 650 mg PO Q6 PRN PRN Reason: Pain, Mild (1-3) Calcium/Vitamin D (Oyster Shell Calcium/Vitamin D 500 Mg-200 Iu) 1 tab PO DAILY [facility] Last Admin: 10/11/18 08:37 Dose: 1 tab Cholecalciferol (Vitamin D) 2,000 intlu PO DAILY [facility] Last Admin: 10/11/18 08:37 Dose: 2,000 intlu Docusate Sodium (Colace) 100 mg PO BID [facility] Last Admin: 10/11/18 08:37 Dose: 100 mg Cefepime HCl 1 gm/ Sodium (Chloride) 100 mls @ 100 mls/hr IVPB Q12 [facility]; Protocol Last Admin: 10/11/18 08:36 Dose: 100 mls/hr Vancomycin HCl 1 gm/ Sodium (Chloride) 250 mls @ 166.667 mls/hr IVPB DAILY [facility]; Protocol Last Admin: 10/11/18 08:36 Dose: 166.667 mls/hr Methadone HCl (Methadone) 110 mg PO DAILY [facility] Last Admin: 10/11/18 08:34 Dose: 110 mg Oxycodone/Acetaminophen (Percocet 5/325 Mg Tab) 1 tab PO Q6 PRN PRN Reason: Pain, severe (8-10) Stop: 10/12/18 17:12 Last Admin: 10/11/18 09:37 Dose: 1 tab - Labs Labs: 10/10/18 05:50 10/10/18 10:59 PT 13.8 Seconds (9.8-13.1) H 10/09/18 09:10 INR 1.2 10/09/18 09:10 APTT 38.3 Seconds (25.6-37.1) H 10/09/18 09:10 - Respiratory Exam Respiratory Exam: Clear to Ausculation Bilateral - Cardiovascular Exam Cardiovascular Exam: REGULAR RHYTHM, +S1, +S2 - Extremities Exam Additional comments: NO LE EDEMA Assessment and Plan - Assessment and Plan (Free Text) Assessment: LEFT HIP FRACTURE WITH POSSIBLE INFECTION Plan: THE PATIENT WILL RECEIVE IF ANTIBIOTICS PRIOR TO SURGERY
--- NOTE | 2018-10-11 11:02 | CP.PCM.PN ---
Subjective - Date & Time of Evaluation Date of Evaluation: 10/11/18 Time of Evaluation: 07:05 - Subjective Subjective: Patient is seen and examined at bedside. Patient had no acute episode overnight. Patient state hip pain still present, it can go from 4 out of 10 to 10 out of ten with movement. Otherwise patient have no other complain, he is able to eat drink, and pass bowel and gas. He denies any Nausea, vomiting, dizziness, SOB chest pain, abdominal pain or any other symptoms. Objective - Vital Signs/Intake and Output Vital Signs (last 24 hours): Temp Pulse Resp BP Pulse Ox 97.8 F 55 L 18 110/68 99 10/11/18 08:17 10/11/18 08:17 10/11/18 08:17 10/11/18 08:17 10/11/18 08:17 - Medications Medications: Current Medications Acetaminophen (Tylenol 325mg Tab) 650 mg PO Q6 PRN PRN Reason: Pain, Mild (1-3) Calcium/Vitamin D (Oyster [place] Calcium/Vitamin D 500 Mg-200 Iu) 1 tab PO DAILY [facility] Last Admin: 10/11/18 08:37 Dose: 1 tab Cholecalciferol (Vitamin D) 2,000 intlu PO DAILY [facility] Last Admin: 10/11/18 08:37 Dose: 2,000 intlu Docusate Sodium (Colace) 100 mg PO BID [facility] Last Admin: 10/11/18 08:37 Dose: 100 mg Cefepime HCl 1 gm/ Sodium (Chloride) 100 mls @ 100 mls/hr IVPB Q12 [facility]; Protocol Last Admin: 10/11/18 08:36 Dose: 100 mls/hr Vancomycin HCl 1 gm/ Sodium (Chloride) 250 mls @ 166.667 mls/hr IVPB DAILY [facility]; Protocol Last Admin: 10/11/18 08:36 Dose: 166.667 mls/hr Methadone HCl (Methadone) 110 mg PO DAILY [facility] Last Admin: 10/11/18 08:34 Dose: 110 mg Oxycodone/Acetaminophen (Percocet 5/325 Mg Tab) 1 tab PO Q6 PRN PRN Reason: Pain, severe (8-10) Stop: 10/12/18 17:12 Last Admin: 10/11/18 09:37 Dose: 1 tab - Labs Labs: 10/10/18 05:50 10/10/18 10:59 PT 13.8 Seconds (9.8-13.1) H 10/09/18 09:10 INR 1.2 10/09/18 09:10 APTT 38.3 Seconds (25.6-37.1) H 10/09/18 09:10 - Constitutional Appears: Well, Non-toxic - Head Exam Head Exam: ATRAUMATIC, NORMAL INSPECTION, NORMOCEPHALIC - Eye Exam Eye Exam: EOMI, Normal appearance, PERRL Pupil Exam: NORMAL ACCOMODATION, PERRL - ENT Exam ENT Exam: Mucous Membranes Moist, Normal Exam - Neck Exam Neck Exam: Full ROM, Normal Inspection - Respiratory Exam Respiratory Exam: Clear to Ausculation Bilateral, NORMAL BREATHING PATTERN - Cardiovascular Exam Cardiovascular Exam: REGULAR RHYTHM, +S1, +S2 - GI/Abdominal Exam GI & Abdominal Exam: Soft, Normal Bowel Sounds - Extremities Exam Additional comments: Left hip deformity noted, tenderness upon palpation, ROM is restricted due to pain. Otherwise all other extremities is WNL - Neurological Exam Neurological Exam: Alert, Awake, Oriented x3 - Psychiatric Exam Psychiatric exam: Normal Affect - Skin Skin Exam: Dry, Intact, Normal Color Assessment and Plan - Assessment and Plan (Free Text) Assessment: 53 yo male patient, with PMH of IV drug use, admitted from ED for L hip/thigh pain of approximately 3 mo ago. -Xray of hip/pelvis showed an extensive destruction of the proximal left femur with pathological fracture, the favored considerations were a lytic destructive neoplasm vs destructive left septic arthrosis, -CT Scan showed surrownding soft tissue swelling including adductor and quadriceps muscle. -Bone scan done 10/07 shows uptake in the left hip affecting both proximal femur and acetabulum more consistent to infectious/inflammatory etiology vs less likely consideration would be neoplasm. -Echo done showed no vegetations, estimated EF 55%, patient is cleared for surge ry by cardiology. -MRI of left hip: Bony distruction of the left femoral head and neck with displacement of the femoral shaft superiorly and laterally. there is a extensive soft tissue signal abnormality with decreased T1 signal. THere is a sorrounding prolifrative and/ or heterotopic bone formation. (Please refer to MRI Report for complete report) Plan: 1) Left hip/thigh pain - As per Dr Bray and ORTHO does not recommend Surgery at this point due to high risk of infection, IV Abx for 6 week is recommended before surgery to be done. - ESR 94, CRP 45.1 - Urine cx, no growth 5 days - Blood cx, no growth 5 days - F/U ID, per Dr. Mariscal-Recommendation appreciated - C/w Vanco 1gm IVQ12 Day 3 - C/w maxipeme 1gm IVQ12 Day 3 - LE US negative - Abd and pelvis CT, features does not suggest malignancy. - Continue with pain management 2)IV drug user/Substance use disorder - Urine toxicology: + methadone, + Cannabinoids - Methadone 110mg daily, [facility] contacted ([phone]) on 10/03/18, dose confirmed - HIV-1 Ab Reactive screen- Negative - Hep C + reactive DVT PPX - Restart Lovenox ppx
--- NOTE | 2018-10-11 14:14 | CP.PCM.DIS ---
<Rich Vital - Last Filed: 10/11/18 14:29> Provider - Provider Date of Admission: 10/02/18 19:39 Attending physician: Christa Ro MD Time Spent in preparation of Discharge (in minutes): 20 Diagnosis - Discharge Diagnosis (1) Pathological fracture of hip Status: Acute (2) Arthritis of left hip Status: Acute (3) Drug abuse Status: Chronic Hospital Course - Lab Results Lab Results: Micro Results 10/02/18 14:29 Blood-Venous Blood Culture - Final NO GROWTH AFTER 5 DAYS 10/02/18 14:29 Blood-Venous Gram Stain - Final TEST NOT PERFORMED 10/02/18 13:20 Blood-Venous Blood Culture - Final NO GROWTH AFTER 5 DAYS 10/02/18 13:20 Blood-Venous Gram Stain - Final TEST NOT PERFORMED 10/02/18 20:46 Urine Urine Culture - Final No Growth (<1,000 CFU/ML) Most Recent Lab Values WBC 6.1 K/uL (4.8-10.8) 10/10/18 05:50 RBC 4.72 Mil/uL (4.40-5.90) 10/10/18 05:50 Hgb 12.3 g/dL (12.0-18.0) 10/10/18 05:50 Hct 37.9 % (35.0-51.0) 10/10/18 05:50 MCV 80.4 fl (80.0-94.0) 10/10/18 05:50 MCH 26.0 pg (27.0-31.0) L 10/10/18 05:50 MCHC 32.3 g/dL (33.0-37.0) L 10/10/18 05:50 RDW 18.1 % (11.5-14.5) H 10/10/18 05:50 Plt Count 353 K/uL (130-400) 10/10/18 05:50 MPV 8.2 fl (7.2-11.7) 10/03/18 05:10 Neut % (Auto) 58.4 % (50.0-75.0) 10/03/18 05:10 Lymph % (Auto) 32.5 % (20.0-40.0) 10/03/18 05:10 [place] % (Auto) 8.1 % (0.0-10.0) 10/03/18 05:10 Eos % (Auto) 0.6 % (0.0-4.0) 10/03/18 05:10 Baso % (Auto) 0.4 % (0.0-2.0) 10/03/18 05:10 Neut # (Auto) 3.6 K/uL (1.8-7.0) 10/03/18 05:10 Lymph # (Auto) 2.0 K/uL (1.0-4.3) 10/03/18 05:10 [place] # (Auto) 0.5 K/uL (0.0-0.8) 10/03/18 05:10 Eos # (Auto) 0.0 K/uL (0.0-0.7) 10/03/18 05:10 Baso # (Auto) 0.0 K/uL (0.0-0.2) 10/03/18 05:10 ESR 94 mm/hr (0-20) H 10/10/18 05:50 Retic Count 1.2 % (0.5-1.5) 10/07/18 05:50 PT 13.8 Seconds (9.8-13.1) H 10/09/18 09:10 INR 1.2 10/09/18 09:10 APTT 38.3 Seconds (25.6-37.1) H 10/09/18 09:10 Sodium 138 mmol/l (132-148) 10/10/18 10:59 Potassium 4.1 MMOL/L (3.6-5.0) 10/10/18 10:59 Chloride 103 mmol/L (98-107) 10/10/18 10:59 Carbon Dioxide 31 mmol/L (22-30) H 10/10/18 10:59 Anion Gap 8 (10-20) L 10/10/18 10:59 BUN 18 mg/dl (9-20) 10/10/18 10:59 Creatinine 0.8 mg/dl (0.8-1.5) 10/10/18 10:59 Est GFR ( Amer) > 60 10/10/18 10:59 Est GFR (Non-Af Amer) > 60 10/10/18 10:59 POC Glucose (mg/dL) 110 mg/dL (65-110) 10/11/18 10:55 Random Glucose 88 mg/dL (75-110) 10/10/18 10:59 Lactic Acid 0.9 MMOL/L (0.7-2.1) 10/02/18 13:30 Calcium 9.1 mg/dL (8.4-10.2) 10/10/18 10:59 Ferritin 138.0 ng/Ml (17.9-464) 10/07/18 05:50 Total Bilirubin 0.3 mg/dl (0.2-1.3) 10/07/18 05:50 AST 22 U/L (17-59) 10/07/18 05:50 ALT 22 U/L (21-72) 10/07/18 05:50 Alkaline Phosphatase 107 U/L (38-126) 10/07/18 05:50 Total Creatine Kinase 207 U/L (55-170) H 10/03/18 05:10 C-Reactive Protein 45.10 mg/L (0.0-9.9) H 10/03/18 05:10 C-React Prot High Sens 9.37 mg/L (1.00-3.00) H 10/10/18 05:50 Total Protein 7.4 G/DL (6.3-8.2) 10/07/18 05:50 Total Protein (PEP) 6.6 g/dL (6.1-8.1) 10/07/18 05:50 Albumin 3.0 g/dL (3.5-5.0) L 10/07/18 05:50 Albumin (PEP) 2.1 g/dL (3.8-4.8) L 10/07/18 05:50 Globulin 4.3 gm/dL (2.2-3.9) H 10/07/18 05:50 Albumin/Globulin Ratio 0.7 (1.0-2.1) L 10/07/18 05:50 Mcqdl-7-Unnzfvuxg 0.5 g/dL (0.2-0.3) H 10/07/18 05:50 Pwlfi-7-Ltcbykkay 1.1 g/dL (0.5-0.9) H 10/07/18 05:50 Zyzy-1-Wonaasxx 0.4 g/dL (0.4-0.6) 10/07/18 05:50 Guor-3-Ukryptni 0.5 g/dL (0.2-0.5) 10/07/18 05:50 Gamma Globulins 2.1 g/dL (0.8-1.7) H 10/07/18 05:50 Abnorm Protein Band 1 TEST NOT PERFORMED 10/07/18 05:50 Abnorm Protein Band 2 TEST NOT PERFORMED 10/07/18 05:50 Abnorm Protein Band 3 TEST NOT PERFORMED 10/07/18 05:50 Vitamin B12 309 pg/mL (239-931) 10/07/18 05:50 25-OH Vitamin D Total < 12.8 NG/ML (30.0-100.0) L 10/03/18 12:11 Folate 3.5 ng/mL 10/07/18 05:50 Procalcitonin < 0.05 NG/ML (0.19-0.49) L 10/03/18 05:10 Urine Color Yellow (YELLOW) 10/02/18 20:46 Urine Clarity Cloudy (Clear) 10/02/18 20:46 Urine pH 6.0 (5.0-8.0) 10/02/18 20:46 Ur Specific [place] 1.017 (1.003-1.030) 10/02/18 20:46 Urine Protein Negative mg/dL (NEGATIVE) 10/02/18 20:46 Urine Glucose (UA) Neg mg/dL (Normal) 10/02/18 20:46 Urine Ketones Negative mg/dL (NEGATIVE) 10/02/18 20:46 Urine Blood Small (NEGATIVE) 10/02/18 20:46 Urine Nitrate Negative (NEGATIVE) 10/02/18 20:46 Urine Bilirubin Negative (NEGATIVE) 10/02/18 20:46 Urine Urobilinogen 4.0 mg/dL (0.2-1.0) 10/02/18 20:46 Ur Leukocyte Esterase Trace Dionicio/uL (Negative) 10/02/18 20:46 Urine RBC (Auto) 30 /hpf (0-3) H 10/02/18 20:46 Urine Microscopic WBC 3 /hpf (0-5) 10/02/18 20:46 Ur Squamous Epith Cells < 1 /hpf (0-5) 10/02/18 20:46 Urine Bacteria Rare (<OCC) 10/02/18 20:46 Vancomycin Trough 14.1 ug/mL (5.0-10.0) H 10/08/18 08:51 Urine Opiates Screen Negative (NEGATIVE) 10/02/18 20:46 Urine Methadone Screen Positive (NEGATIVE) H 10/02/18 20:46 Ur Barbiturates Screen Negative (NEGATIVE) 10/02/18 20:46 Ur Phencyclidine Scrn Negative (NEGATIVE) 10/02/18 20:46 Ur Amphetamines Screen Negative (NEGATIVE) 10/02/18 20:46 U Benzodiazepines Scrn Negative (NEGATIVE) 10/02/18 20:46 U Oth Cocaine Metabols Negative (NEGATIVE) 10/02/18 20:46 U Cannabinoids Screen Positive (NEGATIVE) H 10/02/18 20:46 ODILON & SPEP Interp See note 10/07/18 05:50 Serum Immunofixation Not detected (Not Detected) 10/07/18 05:50 Absolute Lymphs (Flow) 3139 Cells/mcL (850-3900) 10/02/18 11:52 % CD4 Cells 35 Percent (30-61) 10/02/18 11:52 Absolute CD4 Count 1086 Cells/mcL (490-1740) 10/02/18 11:52 T-Help/Suppress Ratio 0.61 Ratio (0.86-5.00) L 10/02/18 11:52 % CD8 Cells 57 Percent (12-42) H 10/02/18 11:52 Absolute CD8 Count 1774 Cells/mcL (180-1170) H 10/02/18 11:52 Free [place] Light Chains 78.3 mg/L (3.3-19.4) H 10/07/18 05:50 Free Lambda Light Chain 41.6 mg/L (5.7-26.3) H 10/07/18 05:50 Free [place]/Lambda Ratio 1.88 (0.26-1.65) H 10/07/18 05:50 Hepatitis C Antibody Reactive (NEGATIVE) 10/04/18 04:20 HIV-1 Ab Rapid Screen Non reactive (NON REAC) 10/03/18 07:09 HIV-1 RNA Qnt (RT-PCR) <1.30 not detected (Not Detected) 10/02/18 13:20 Blood Type B POSITIVE 10/09/18 09:10 Blood Type Confirm B POSITIVE 10/09/18 06:00 Antibody Screen Negative 10/09/18 09:10 Crossmatch See Detail 10/09/18 09:10 BBK History Checked No verified bt 10/09/18 09:10 - Hospital Course Hospital Course: This is a 53 yo male patient, with PMH of IV drug use, admitted from ED for L hip/thigh pain of approximately 3 mo ago. Was admitted due to Hip/thigh fracture for further evaluation and possible surgery. Xray, MRI, Bone scan and Ct scan and echo were done. ID, Surgery and Hematology was consulted. Patient was put on medication to control pain, and recieved IV vanco Q12 and Mexipeme Q12 for 3 days. As per surgery patient is at high risk of infection due to Poor hygiene, and recommend IV abx for 6 week before surgery to be done. Patient will be discharged to acute rehab at [facility] for further IV antibiotic treatment. Patient is also IV drug abuser + for methadone, and cannabis. Methadone 110mg daily, [facility] contacted ([phone]) on 10/03/18, and confirmed. Patient is currently Afebrile> 24h WBC WNL Patient not in acute distress. Patient received 3 days of abx, 39 days left for complete treatment. Inpatient team, surgery, ID, and hematology Agree with plan. Patient will be discharged to acute rehab and continue IV Abx for 6 weeks. Patient will follow up with Dr. Rodney in 4-6 weeks for surgery. Xray hip/pelvis showed an extensive destruction of the proximal left femur with pathological fracture, the favored considerations were a lytic destructive neoplasm vs destructive left septic arthrosis, CT Scan showed surrounding soft tissue swelling including adductor and quadriceps muscle. Bone scan done 10/07 shows uptake in the left hip affecting both proximal femur and acetabulum more consistent to infectious/inflammatory etiology vs less likely consideration would be neoplasm. Echo No vegetations, estimated EF 55%, patient is cleared for surgery by cardiology. MRI of left hip: Bony destruction of the left femoral head and neck with displacement of the femoral shaft superiorly and laterally. there is a extensive soft tissue signal abnormality with decreased T1 signal. THere is a sorrounding prolifrative and/ or heterotopic bone formation. (Please refer to MRI Report for complete report) Labs HIV ab negative Hep C + reactive Discharge Exam - Head Exam Head Exam: ATRAUMATIC, NORMAL INSPECTION, NORMOCEPHALIC - Eye Exam Eye Exam: EOMI, Normal appearance, PERRL Pupil Exam: NORMAL ACCOMODATION, PERRL - Respiratory Exam Respiratory Exam: Clear to PA & Lateral, NORMAL BREATHING PATTERN - Cardiovascular Exam Cardiovascular Exam: REGULAR RHYTHM, +S1, +S2 - GI/Abdominal Exam GI & Abdominal Exam: Normal Bowel Sounds, Unremarkable - Extremities Exam Additional comments: LEFT hip mild deformity noted, with tenderness upon palpation, no erythema noted, Restricted ROM due to pain. otherwise all other extremities WNL - Neurological Exam Neurological exam: Alert, Oriented x3 - Skin Skin Exam: Normal Color, Warm Discharge Plan - Discharge Medications Prescriptions: Cefepime 1gm in NS 100ml [Maxipime 1gm] 1 gm IVPB Q12 39 Days bag RX: Vancomycin 1 GM [Vancomycin 1GM in Normal Saline Addvantage] 1 gm IVPB Q12 39 Days bag - Follow Up Plan Condition: STABLE Disposition: REHAB FACILITY/REHAB UNIT Patient education suggested?: Yes Instructions: Hip Pain (DC) Additional Instructions: follow up with primary MD and Dr Rodney 1 week Referrals: Suraj Bray MD [Staff Provider] - Haroon Rodney III, MD [Staff Provider] - Vikas Mariscal MD [Medical Doctor] - <Tracey Tim Bebeto - Last Filed: 10/12/18 09:59> Provider - Provider Date of Admission: 10/02/18 19:39 Attending physician: Christa Ro MD Hospital Course - Lab Results Lab Results: Micro Results 10/02/18 14:29 Blood-Venous Blood Culture - Final NO GROWTH AFTER 5 DAYS 10/02/18 14:29 Blood-Venous Gram Stain - Final TEST NOT PERFORMED 10/02/18 13:20 Blood-Venous Blood Culture - Final NO GROWTH AFTER 5 DAYS 10/02/18 13:20 Blood-Venous Gram Stain - Final TEST NOT PERFORMED 10/02/18 20:46 Urine Urine Culture - Final No Growth (<1,000 CFU/ML) Most Recent Lab Values WBC 6.1 K/uL (4.8-10.8) 10/10/18 05:50 RBC 4.72 Mil/uL (4.40-5.90) 10/10/18 05:50 Hgb 12.3 g/dL (12.0-18.0) 10/10/18 05:50 Hct 37.9 % (35.0-51.0) 10/10/18 05:50 MCV 80.4 fl (80.0-94.0) 10/10/18 05:50 MCH 26.0 pg (27.0-31.0) L 10/10/18 05:50 MCHC 32.3 g/dL (33.0-37.0) L 10/10/18 05:50 RDW 18.1 % (11.5-14.5) H 10/10/18 05:50 Plt Count 353 K/uL (130-400) 10/10/18 05:50 MPV 8.2 fl (7.2-11.7) 10/03/18 05:10 Neut % (Auto) 58.4 % (50.0-75.0) 10/03/18 05:10 Lymph % (Auto) 32.5 % (20.0-40.0) 10/03/18 05:10 Garden % (Auto) 8.1 % (0.0-10.0) 10/03/18 05:10 Eos % (Auto) 0.6 % (0.0-4.0) 10/03/18 05:10 Baso % (Auto) 0.4 % (0.0-2.0) 10/03/18 05:10 Neut # (Auto) 3.6 K/uL (1.8-7.0) 10/03/18 05:10 Lymph # (Auto) 2.0 K/uL (1.0-4.3) 10/03/18 05:10 [place] # (Auto) 0.5 K/uL (0.0-0.8) 10/03/18 05:10 Eos # (Auto) 0.0 K/uL (0.0-0.7) 10/03/18 05:10 Baso # (Auto) 0.0 K/uL (0.0-0.2) 10/03/18 05:10 ESR 94 mm/hr (0-20) H 10/10/18 05:50 Retic Count 1.2 % (0.5-1.5) 10/07/18 05:50 PT 13.8 Seconds (9.8-13.1) H 10/09/18 09:10 INR 1.2 10/09/18 09:10 APTT 38.3 Seconds (25.6-37.1) H 10/09/18 09:10 Sodium 138 mmol/l (132-148) 10/10/18 10:59 Potassium 4.1 MMOL/L (3.6-5.0) 10/10/18 10:59 Chloride 103 mmol/L (98-107) 10/10/18 10:59 Carbon Dioxide 31 mmol/L (22-30) H 10/10/18 10:59 Anion Gap 8 (10-20) L 10/10/18 10:59 BUN 18 mg/dl (9-20) 10/10/18 10:59 Creatinine 0.8 mg/dl (0.8-1.5) 10/10/18 10:59 Est GFR ( Amer) > 60 10/10/18 10:59 Est GFR (Non-Af Amer) > 60 10/10/18 10:59 POC Glucose (mg/dL) 91 mg/dL (65-110) 10/11/18 15:59 Random Glucose 88 mg/dL (75-110) 10/10/18 10:59 Lactic Acid 0.9 MMOL/L (0.7-2.1) 10/02/18 13:30 Calcium 9.1 mg/dL (8.4-10.2) 10/10/18 10:59 Ferritin 138.0 ng/Ml (17.9-464) 10/07/18 05:50 Total Bilirubin 0.3 mg/dl (0.2-1.3) 10/07/18 05:50 AST 22 U/L (17-59) 10/07/18 05:50 ALT 22 U/L (21-72) 10/07/18 05:50 Alkaline Phosphatase 107 U/L (38-126) 10/07/18 05:50 Total Creatine Kinase 207 U/L (55-170) H 10/03/18 05:10 C-Reactive Protein 45.10 mg/L (0.0-9.9) H 10/03/18 05:10 C-React Prot High Sens 9.37 mg/L (1.00-3.00) H 10/10/18 05:50 Total Protein 7.4 G/DL (6.3-8.2) 10/07/18 05:50 Total Protein (PEP) 6.6 g/dL (6.1-8.1) 10/07/18 05:50 Albumin 3.0 g/dL (3.5-5.0) L 10/07/18 05:50 Albumin (PEP) 2.1 g/dL (3.8-4.8) L 10/07/18 05:50 Globulin 4.3 gm/dL (2.2-3.9) H 10/07/18 05:50 Albumin/Globulin Ratio 0.7 (1.0-2.1) L 10/07/18 05:50 Darlj-6-Resfuavmt 0.5 g/dL (0.2-0.3) H 10/07/18 05:50 Ctbpe-7-Elqexurax 1.1 g/dL (0.5-0.9) H 10/07/18 05:50 Nggl-5-Sawfhdgc 0.4 g/dL (0.4-0.6) 10/07/18 05:50 Ivrq-0-Uiengvmn 0.5 g/dL (0.2-0.5) 10/07/18 05:50 Gamma Globulins 2.1 g/dL (0.8-1.7) H 10/07/18 05:50 Abnorm Protein Band 1 TEST NOT PERFORMED 10/07/18 05:50 Abnorm Protein Band 2 TEST NOT PERFORMED 10/07/18 05:50 Abnorm Protein Band 3 TEST NOT PERFORMED 10/07/18 05:50 Vitamin B12 309 pg/mL (239-931) 10/07/18 05:50 25-OH Vitamin D Total < 12.8 NG/ML (30.0-100.0) L 10/03/18 12:11 Folate 3.5 ng/mL 10/07/18 05:50 Procalcitonin < 0.05 NG/ML (0.19-0.49) L 10/03/18 05:10 Urine Color Yellow (YELLOW) 10/02/18 20:46 Urine Clarity Cloudy (Clear) 10/02/18 20:46 Urine pH 6.0 (5.0-8.0) 10/02/18 20:46 Ur Specific [place] 1.017 (1.003-1.030) 10/02/18 20:46 Urine Protein Negative mg/dL (NEGATIVE) 10/02/18 20:46 Urine Glucose (UA) Neg mg/dL (Normal) 10/02/18 20:46 Urine Ketones Negative mg/dL (NEGATIVE) 10/02/18 20:46 Urine Blood Small (NEGATIVE) 10/02/18 20:46 Urine Nitrate Negative (NEGATIVE) 10/02/18 20:46 Urine Bilirubin Negative (NEGATIVE) 10/02/18 20:46 Urine Urobilinogen 4.0 mg/dL (0.2-1.0) 10/02/18 20:46 Ur Leukocyte Esterase Trace Dionicio/uL (Negative) 10/02/18 20:46 Urine RBC (Auto) 30 /hpf (0-3) H 10/02/18 20:46 Urine Microscopic WBC 3 /hpf (0-5) 10/02/18 20:46 Ur Squamous Epith Cells < 1 /hpf (0-5) 10/02/18 20:46 Urine Bacteria Rare (<OCC) 10/02/18 20:46 Vancomycin Trough 14.1 ug/mL (5.0-10.0) H 10/08/18 08:51 Urine Opiates Screen Negative (NEGATIVE) 10/02/18 20:46 Urine Methadone Screen Positive (NEGATIVE) H 10/02/18 20:46 Ur Barbiturates Screen Negative (NEGATIVE) 10/02/18 20:46 Ur Phencyclidine Scrn Negative (NEGATIVE) 10/02/18 20:46 Ur Amphetamines Screen Negative (NEGATIVE) 10/02/18 20:46 U Benzodiazepines Scrn Negative (NEGATIVE) 10/02/18 20:46 U Oth Cocaine Metabols Negative (NEGATIVE) 10/02/18 20:46 U Cannabinoids Screen Positive (NEGATIVE) H 10/02/18 20:46 ODILON & SPEP Interp See note 10/07/18 05:50 Serum Immunofixation Not detected (Not Detected) 10/07/18 05:50 Absolute Lymphs (Flow) 3139 Cells/mcL (850-3900) 10/02/18 11:52 % CD4 Cells 35 Percent (30-61) 10/02/18 11:52 Absolute CD4 Count 1086 Cells/mcL (490-1740) 10/02/18 11:52 T-Help/Suppress Ratio 0.61 Ratio (0.86-5.00) L 10/02/18 11:52 % CD8 Cells 57 Percent (12-42) H 10/02/18 11:52 Absolute CD8 Count 1774 Cells/mcL (180-1170) H 10/02/18 11:52 [place]/Lambda Light Chain see note 10/07/18 05:50 Free [place] Light Chains 78.3 mg/L (3.3-19.4) H 10/07/18 05:50 Free Lambda Light Chain 41.6 mg/L (5.7-26.3) H 10/07/18 05:50 Free [place]/Lambda Ratio 1.88 (0.26-1.65) H 10/07/18 05:50 Hepatitis C Antibody Reactive (NEGATIVE) 10/04/18 04:20 HIV-1 Ab Rapid Screen Non reactive (NON REAC) 10/03/18 07:09 HIV-1 RNA Qnt (RT-PCR) <1.30 not detected (Not Detected) 10/02/18 13:20 Blood Type B POSITIVE 10/09/18 09:10 Blood Type Confirm B POSITIVE 10/09/18 06:00 Antibody Screen Negative 10/09/18 09:10 Crossmatch See Detail 10/09/18 09:10 BBK History Checked No verified bt 10/09/18 09:10 Attending/Attestation - Attestation I have personally seen and examined this patient.: Yes I have fully participated in the care of the patient.: Yes I have reviewed all pertinent clinical information, including history, physical exam and plan: Yes Notes (Text): 10/12/18 09:59 Seen, examined, and discussed with resident. Agree with findings and plan as above.
--- NOTE | 2018-10-11 14:20 | CP.PCM.PN ---
Subjective - Date & Time of Evaluation Date of Evaluation: 10/11/18 Time of Evaluation: 07:00 - Subjective Subjective: Patient seen and examined at bedside. Pain controlled. No new complaints. Objective - Vital Signs/Intake and Output Vital Signs (last 24 hours): Temp Pulse Resp BP Pulse Ox 97.8 F 55 L 18 110/68 99 10/11/18 08:17 10/11/18 08:17 10/11/18 08:17 10/11/18 08:17 10/11/18 08:17 - Medications Medications: Current Medications Acetaminophen (Tylenol 325mg Tab) 650 mg PO Q6 PRN PRN Reason: Pain, Mild (1-3) Calcium/Vitamin D (Oyster Shell Calcium/Vitamin D 500 Mg-200 Iu) 1 tab PO DAILY [facility] Last Admin: 10/11/18 08:37 Dose: 1 tab Cholecalciferol (Vitamin D) 2,000 intlu PO DAILY [facility] Last Admin: 10/11/18 08:37 Dose: 2,000 intlu Docusate Sodium (Colace) 100 mg PO BID [facility] Last Admin: 10/11/18 08:37 Dose: 100 mg Enoxaparin Sodium (Lovenox) 40 mg SC DAILY [facility]; Protocol Cefepime HCl 1 gm/ Sodium (Chloride) 100 mls @ 100 mls/hr IVPB Q12 [facility]; Protocol Last Admin: 10/11/18 08:36 Dose: 100 mls/hr Vancomycin HCl 1 gm/ Sodium (Chloride) 250 mls @ 166.667 mls/hr IVPB DAILY [facility]; Protocol Last Admin: 10/11/18 08:36 Dose: 166.667 mls/hr Methadone HCl (Methadone) 110 mg PO DAILY [facility] Last Admin: 10/11/18 08:34 Dose: 110 mg Oxycodone/Acetaminophen (Percocet 5/325 Mg Tab) 1 tab PO Q6 PRN PRN Reason: Pain, severe (8-10) Stop: 10/12/18 17:12 Last Admin: 10/11/18 09:37 Dose: 1 tab - Labs Labs: 10/10/18 05:50 10/10/18 10:59 PT 13.8 Seconds (9.8-13.1) H 10/09/18 09:10 INR 1.2 10/09/18 09:10 APTT 38.3 Seconds (25.6-37.1) H 10/09/18 09:10 - Extremities Exam Additional comments: L hip: no lesions, no masses +tenderness lateral hip, no groin tenderness sensation intact SP/DP/TN motor intact EHL/FHL/TA/G pedal pulses intact calves soft NT b/l Assessment and Plan (1) Pathological fracture of hip Assessment & Plan: -Plan unchanged, no surgery at this time due to patient's high risk of infection. -PT/OT NWB LLE -pain control -IV abx as per ID -orthopedically stable for discharge -f/u Dr. Rodney in 4-6 weeks for surgical planning -above d/w Dr. Rodney in agreement Status: Acute
--- NOTE | 2018-10-11 22:50 | CP.PCM.PN ---
Subjective - Date & Time of Evaluation Date of Evaluation: 10/11/18 Time of Evaluation: 09:00 - Subjective Subjective: Has hip pain. Objective - Vital Signs/Intake and Output Vital Signs (last 24 hours): Temp Pulse Resp BP Pulse Ox 97.8 F 55 L 18 110/68 99 10/11/18 08:17 10/11/18 08:17 10/11/18 08:17 10/11/18 08:17 10/11/18 08:17 - Labs Labs: 10/10/18 05:50 10/10/18 10:59 PT 13.8 Seconds (9.8-13.1) H 10/09/18 09:10 INR 1.2 10/09/18 09:10 APTT 38.3 Seconds (25.6-37.1) H 10/09/18 09:10 - Head Exam Head Exam: ATRAUMATIC - Eye Exam Eye Exam: Normal appearance - ENT Exam ENT Exam: Mucous Membranes Dry - Respiratory Exam Respiratory Exam: NORMAL BREATHING PATTERN - Cardiovascular Exam Cardiovascular Exam: +S1, +S2 - GI/Abdominal Exam GI & Abdominal Exam: Normal Bowel Sounds Assessment and Plan (1) Pathological fracture of hip Assessment & Plan: likely with chronic infection as opposed to malignancy surgery on hold per ortho Status: Acute (2) Anemia Assessment & Plan: chronic disease Status: Acute
[2018-10-12] MEDS ORDERED: Enoxaparin 40 mg Syringe SC SCH (09:00)
== END 2018-10-11 20:00 | DRG 543 ==
LOC: H.ER 10:58 → H.ERHOLD 19:39 → H.TEL 22:59 → H.MEDSURG1 10-06 17:31
PROVIDERS: ADMIT Internal Medicine; ATTEND Internal Medicine
PROC: BQ31ZZZ Magnetic Resonance Imaging (MRI) of Left Hip (ICD-10-PCS; principal; 2018-10-09 13:45)
DX: M84.452A Pathological fracture, left femur, initial encounter for fracture (principal); F11.20 Opioid dependence, uncomplicated; L08.9 Local infection of the skin and subcutaneous tissue, unspecified; B19.20 Unspecified viral hepatitis C without hepatic coma; D63.8 Anemia in other chronic diseases classified elsewhere; E55.9 Vitamin D deficiency, unspecified; F17.210 Nicotine dependence, cigarettes, uncomplicated; M16.12 Unilateral primary osteoarthritis, left hip; R79.1 Abnormal coagulation profile; Z53.9 Procedure and treatment not carried out, unspecified reason; Z59.0 Homelessness; M79.89 Other specified soft tissue disorders; R70.0 Elevated erythrocyte sedimentation rate